=== PATIENT | female | born 1950 | race Caucasian/White ===

== ENCOUNTER 2023-10-05 12:02 | Emergency (ER) | payer MEDICARE, SELFPAY ==
[2023-10-05] VITALS (30 sets, daily range): BP systolic 103–131; BP diastolic 61–97; PULSE 92–107; RESP 20; TEMP 36.3; O2SAT 92–100
--- NOTE | 2023-10-05 13:11 | ED_ITS ---
HPI - General Adult General Date Seen: 10/05/23 Chief complaint: Dizziness/Vertigo Stated complaint: shortness of breath,lightheaded Time Seen by Provider: 10/05/23 12:41 Source: patient Mode of arrival: ambulatory Limitations: no limitations History of Present Illness HPI narrative: Patient is a 72-year-old female presenting to the emergency department for shortness of breath and she has not see dizziness. She states for the past month she has been having worsening shortness of breath. She has also noticed that after walking for a of short amount of time she will start feeling dizzy. She has not have any dizziness or lightheadedness right now. She is also concerned because she has lost 70 lb over the last year unintentionally. She has no she had not had much of an appetite. She has been on Ozempic for 3 months but states the decreased appetite and weight loss has started before that. She is on it for her diabetes. She denies chest pain, fevers, chills, abdominal pain, diarrhea, constipation, weakness, numbness. She was previously on hypertensive medication but was taken off it last week. No other concerns noted at this time Related Data Home Medications Medication Instructions Recorded Confirmed metformin 500 mg tablet 1,000 mg PO BID 10/05/23 10/05/23 metoprolol succinate 25 mg 25 mg PO DAILY 10/05/23 10/05/23 tablet,extended release 24 hr semaglutide 0.25 mg or 0.5 mg (2 mg subcut 10/05/23 mg/3 mL) subcutaneous pen injector (Ozempic) Allergies Allergy/AdvReac Type Severity Reaction Status Date / Time bee venom protein (honey bee) Allergy Unknown Verified 10/05/23 12:34 Sulfa (Sulfonamide Allergy Unknown Verified 10/05/23 12:34 Antibiotics) Review of Systems Status of ROS: Reports: 10 or more systems reviewed and unremarkable except as noted in History and below PFSH PFSH Social History Smoking Status: Never smoker Do you use any of these nicotine containing products: None How often do you have a drink containing alcohol: never How often do you have six or more drinks on one occasion: Never AUDIT-C Alcohol total score: 0 Non-prescribed substance use: denies use Exam Narrative: Exam Narrative: Const: Well-nourished, Well-developed, in mild distress Eyes: PERRL, no conjunctival injection, and symmetrical lids HENT: Atraumatic external nose and ears. Moist mucous membranes. Neck: Symmetric, trachea midline, No thyromegaly. CVS: RRR, No murmurs or gallops. Peripheral pulses 2+ and equal in all extremities RESP: Unlabored respiratory effort. Clear to auscultation bilaterally. GI: Nontender/Nondistended, No rebound or guarding. MSK:Extremities w/o deformity, Normal Active ROM Skin: Warm, Dry. No rashes or lesions. Neuro: Normal Muscle tone, No focal neurological deficits. Psych: Awake, Alert, & Oriented x3. Appropriate mood and affect. Const: Vital Signs, click to edit/add: Vital Signs - 24 hr 10/05/23 16:00 10/05/23 16:02 10/05/23 16:15 Pulse Rate 94 95 95 Blood Pressure 124/72 Pulse Oximetry 98 95 98 10/05/23 16:30 10/05/23 16:32 10/05/23 16:45 Pulse Rate 97 97 94 Blood Pressure 127/73 Pulse Oximetry 96 94 100 Course Vital Signs Vital signs: Initial Vital Signs Temperature 97.4 F L 10/05/23 12:29 Temperature Source Temporal Artery Scan 10/05/23 12:29 Pulse Rate 104 H 10/05/23 12:29 Respiratory Rate 10/05/23 12:29 Blood Pressure 114/80 10/05/23 12:29 Blood Pressure Mean 91 10/05/23 12:29 Blood Pressure Position Sitting 10/05/23 12:29 Pulse Oximetry 98 10/05/23 12:29 Oxygen Delivery Method Room Air 10/05/23 12:29 Vital Signs Temperature 97.4 F L 10/05/23 12:29 Pulse Rate 104 H 10/05/23 12:29 Respiratory Rate 20 10/05/23 12:29 Blood Pressure 114/80 10/05/23 12:29 Pulse Oximetry 98 10/05/23 12:29 Oxygen Delivery Method Room Air 10/05/23 12:29 Temperature 97.4 F L 10/05/23 12:29 Pulse Rate 94 10/05/23 16:45 Respiratory Rate 20 10/05/23 12:29 Blood Pressure 127/73 02/13/24 16:32 Pulse Oximetry 100 02/13/24 16:45 Oxygen Delivery Method Room Air 10/05/23 12:29 Medications Administered Medications: Discontinued Medications Generic Name Dose Route Start Last Admin Trade Name Lily PRN Reason Stop Dose Admin Lactated Ringer's 1,000 mls @ 1,000 mls/hr 10/05/23 13:10 10/05/23 15:35 Lactated Ringers 1000 Ml IV 10/05/23 14:09 Infused .Q1H ONE Infusion Lactated Ringer's 1,000 mls @ 1,000 mls/hr 10/05/23 16:18 10/05/23 16:28 Lactated Ringers 1000 Ml IV 10/05/23 17:17 1,000 mls/hr .Q1H ONE Administration Medical Decision Making MDM Narrative Medical decision making narrative: Patient is a 72-year-old female presenting to the emergency department for shortness of breath. He has also had blood pressure of 80/60 in triage when she stood up. She has been having issues dizziness and lightheadedness over past month while walking around her house. This is abnormal for her. She is not symptomatic at this time. States she has not been eating or drinking much due to not having much of an appetite. This has been going on for a wound she has lost over 70 lb in the past year. She is on was unpacking night can cause decreased appetite but she has only been on that for 3 months. At this time her condition is concerning for cancer. With the shortness of breath and low blood pressure and also concern for pulmonary embolism. At this time we will able limited amount of time in the day that we can order CT scan so or PE study of the chest due for D-dimer as a D-dimer might take too long to come back. Well for CT scan IV contrast of the abdomen pelvis due to concern of cancer. Also ordered BMP, troponin, CMP, creatinine, CBC. She is tachycardic so will order preemptive septic workup that includes blood cultures and lactate. Lactate came back at 4.0. She was given a L of fluids and after that her blood pressure improved her heart rate also improved. She has been able to walk around the department without symptoms. Cbc and CMP showed no acute concerning abnormalities. Troponin within normal limits. EKG shows no concerning findings. Prelim reads of the CTA chest shows chronic fibrotic changes but no acute findings. No signs of PE. Preliminary read of the abdominal CT shows a distended gallbladder to correlate with LFTs. LFTs are within normal limits. No other acute finding seen. Post sec blood pressures were done and were well. She is initially had a lactate of 4. There is no obvious signs of infections so repeated this after L of fluids and is down to 2.3. This seems most likely secondary to dehydration as her symptoms have resolved in her vital signs have improved after a L of fluid. More fluid was given. She is otherwise doing well and I believe she is safe for discharge home. She is agreeable to this plan. She has an appointment the primary care provider on Wednesday. I told her to speak to him about her Ozempic as it may be causing her worsening in her decreased appetite and fluid intake. She states she understands. Final reads returned the next day consistent with preliminary reads. Further interventions not necessary at this time. I did speak to the patient about the results. Lab Data Labs: Lab Results 10/05/23 10/05/23 10/05/23 Range/Units 12:57 13:14 15:55 WBC 9.81 (4.50-11.00) K/uL RBC 3.29 L (4.00-5.20) m/uL Hgb 10.5 L (12.0-16.0) gm/dL Hct 33.2 (33.0-51.0) % MCV 101 H (80-100) fL MCH 32 (26-34) pg MCHC 32 (32-36) gm/dL RDW Coeff of Kain 13.1 (11.5-15.5) % Plt Count 486 H (140-440) K/uL Neut % (Auto) 53.3 (42.0-72.0) % Lymph % (Auto) 38.6 (20-44) % [place] % (Auto) 5.5 (0.0-11.0) % Eos % (Auto) 2.0 (0.0-7.0) % Baso % (Auto) 0.5 (0.0-3.0) % Neut # (Auto) 5.22 (1.7-7.0) K/uL Lymph # (Auto) 3.79 H (0.90-2.90) K/uL [place] # (Auto) 0.50 (0.00-0.90) K/UL Eos # (Auto) 0.20 (0.00-0.50) K/uL Baso # (Auto) 0.05 (0.00-0.30) K/uL Abs Immat Gran (auto) 0.01 (0.00-0.30) K/uL Imm/Tot Granulo (auto) 0.1 % Sodium 137 (135-149) mmol/L Potassium 3.9 (3.6-5.1) mmol/L Chloride 102 (96-114) mmol/L Carbon Dioxide 23 (20-32) mmol/L Anion Gap 12 (7-15) mEq/L BUN 22 (7-30) mg/dL Creatinine 0.7 (0.5-1.5) mg/dL Estimated GFR 92 ml/min Glucose 84 (60-115) mg/dL Lactate 4.0 H 2.3 H (0.5-1.9) mmol/L Calcium 9.2 (8.4-10.6) mg/dL Total Bilirubin 0.6 (0.1-1.5) mg/dL AST 29 (12-35) U/L ALT 22 (4-35) U/L Alkaline Phosphatase 52 (40-150) U/L NT-Pro-B Natriuret Pep 83 pg/mL Total Protein 6.7 (6.0-8.3) g/dL Albumin 4.0 (3.3-5.0) g/dL POC Creatinine 0.8 (0.6-1.3) mg/dl POC Troponin I 0.00 L (0.01-0.04) ng/ml Imaging Data CTA chest: Radiologist's impression: 1. No pulmonary embolus. No CT evidence of right heart strain. 2. No acute intrathoracic pathology. No suspicious pulmonary masses identified 3. Coronary arterial calcifications. Correlation with ASCVD evaluation is advised. Please note that all CT scans at this facility use dose modulation, iterative reconstruction, and/or weight-based dosing when appropriate to reduce radiation dose to as low as reasonably achievable. Dictated by Lazarus Gill MD @ 10/05/2023 10:55:[address] scan abdomen and pelvis: Radiologist's impression: 1. Postsurgical changes of a prior gastric bypass surgery. 2. No acute abdominopelvic pathology. Severe colonic stool burden, correlate for constipation. 3. Nodular thickening of the left adrenal gland, query underlying adrenal hyperplasia versus a small adrenal adenoma. If clinically warranted, consider fu rther evaluation with a dedicated CT/MR adrenal mass protocol. Please note that all CT scans at this facility use dose modulation, iterative reconstruction, and/or weight-based dosing when appropriate to reduce radiation dose to as low as reasonably achievable. Dictated by Lazarus Gill MD @ 10/05/2023 10:32:28 PM ECG Data Attestation: I personally reviewed and interpreted this ECG as follows: Prior ECG tracings: not available for review Interpretation: Normal sinus rhythm with rate of 97 beats per minute, normal intervals, normal axis, no ST or T-wave abnormalities Discharge Plan Discharge Clinical Impression: Dehydration Patient Disposition: Home, Self-Care Condition: Improved Instructions: Dehydration (ED) Additional Instructions: It appears as if you are having dehydration as causing some of your symptoms. I cannot say definitively was causing the shortness of breath I do not find anything acute to my exam. You should speak to her primary care provider at y our appointment this Wednesday about possibly stopping the Ozempic due to it causing a decrease in appetite. Prescriptions: No Action metformin 500 mg tablet 1,000 mg PO BID metoprolol succinate 25 mg tablet extended release 24 hr 25 mg PO DAILY Ozempic 0.25 mg or 0.5 mg (2 mg/3 mL) pen injector subcut Follow Up/Referrals: Provider,Not a Local [Primary Care Provider] - Stand Alone Forms: [employer] Info Instructions
[2023-10-05 13:26] LABS: Basophils Absolute Auto 0.05 K/uL (0.00-0.30); Basophils Percent Auto 0.5 % (0.0-3.0); Hematocrit 33.2 % (33.0-51.0); Hemoglobin* 10.5 gm/dL (12.0-16.0); Immature Granulocytes Abs Auto 0.01 K/uL (0.00-0.30); Immature Granulocytes Pct Auto 0.1 %; Lymphocytes Absolute Auto 3.79 K/uL (0.90-2.90); Lymphocytes Percent Auto 38.6 % (20-44); Mean Corpuscular HGB Conc 32 gm/dL (32-36); Mean Corpuscular Hemoglobin 32 pg (26-34); Mean Corpuscular Volume 101 fL (80-100); Monocytes Percent Auto 5.5 % (0.0-11.0); Neutrophils Absolute Auto 5.22 K/uL (1.7-7.0); Neutrophils Percent Auto 53.3 % (42.0-72.0); Platelet Count* 486 K/uL (140-440); RDW Coefficient of Variation % 13.1 % (11.5-15.5); Red Blood Count 3.29 m/uL (4.00-5.20); White Blood Count* 9.81 K/uL (4.50-11.00)
[2023-10-05 13:30] LABS: Slide Review Reflex No
--- OUTSIDE RECORDS SUMMARY | 2023-10-05 13:32 | XMS_ITS | Encounter Summary ---
Author Name Unknown Organization [facility] Address [address] [place] [address] Care Team Providers Care Associate Merchandiser Name Role Phone Shima Higuera Primary Care Provider [phone] Reason for Visit * Reason Comments RESULTS, TEST Encounter Details Date Type Department Care Team Description 09/30/2023 [facility]phone [facility] [address] [place], [place] [id number] [facility] [address] [place] [address] RESULTS, TEST Social History Tobacco Use Types Packs/Day Years Used Date Smoking Tobacco: Never Passive Smoke Exposure: Never Smokeless Tobacco: Never Alcohol Use Standard Drinks/Week Comments No 0 (1 standard drink = 0.6 oz pur e alcohol) PHQ-2 Answer Date Recorded PHQ-2 Score 0 09/01/2023 Sex and Gender Information Value Date Recorded Sex Assigned at Not on file Gender Identity Not on file Sexual Orientation Not on file documented as of this encounter Nursing Notes * Sarah Rhodes LPN - 10/01/2023 10:41 AM CST Spoke to pt, relayed provider result message, pt has no further questions, closing encounter. ICAL APPLICATIONS MANAGER * Tami Madrid - 09/30/2023 4:45 PM CST Test Results What test are you calling about? 09/30/2023 Primary Casket Upholsterer: Shima Higuera, DO Who ordered the test? Yulissa Park When and where was the test done? [facility] 09/30/2023 Additional comments (related to the above concern): Pt said she missed a call earlier If a prescription is needed, patient would like it filled at the pharmacy listed in Medication Management. Is it okay to leave a detailed message on your voicemail? Yes Is there anything else I can help you with today? ICAL APPLICATIONS MANAGER documented in this encounter Plan of Treatment Upcoming Encounters Date Type Department Care Team Description 10/08/2023 9:40 AM CLINICAL APPLICATIONS MANAGER [facility] [address] [place], [place] [phone] Hemant Fallon MBChB [address] [place], [place] [id number] 03/15/2024 10:45 AM CDT Appointment [facility] [address] [place], [place] [phone] Yumiko yHatt MD [address] [place], [place] [address] documented as of this encounter Visit Diagnoses Not on filedocumented in this encounter Care Teams Associate Merchandiser Relationship Specialty Start Date End Date Shima Higuera DO [address] [place], [place] [id number] PCP - General Family Practice 01/31/18 documented as of this encounter
--- OUTSIDE RECORDS SUMMARY | 2023-10-05 13:32 | XMS_ITS | Clinical Summary ---
Author Name Unknown Organization [facility] Address [address] [address] Care Team Providers Care Staging Technician Name Role Phone Shima Higuera Padmini DEAN Primary Care Provider [phone] Source Comments You are receiving this document as you are listed as the primary care provider,follow-up provider, or the patient has been referred to you for consultation.This is in compliance with the Medicare and[facility] EHR Incentive Program,which states Providers who transition their patient to another setting of careor provider of care or refers their patient to another provider of care shouldprovide summary care record for each transition of care or referral. Génie NumériqueUnm Carrie Ting[facility] HospitalHangzhou [employer] Allergies Active Allergy Reactions Criticality Noted Date Comments Bee Venom Rash 09/18/2015 Benzoin Rash 07/03/2003 Oxycodone Confusion 09/18/2015 Sulfa Antibiotics Rash 10/26/2002 Wound Dressing Adhesive Dermatitis,Rash Low 014 Steri-strips have caused a rash. Medications Medication Sig Dispensed Refills Start Date End Date Status Multiple Vitamins-Minerals (MULTIVITAMIN OR) Take 1 tablet by mouth daily (every 24 hours). 0 0 Active cholecalciferol (VITAMIN D3) 1000 UNITS tabletIndications: S/P gastric bypass Take 1 Tablet (1,000 Units) by mouth daily. 0 1 Active SUMAtriptan (IMITREX) 100 MG tabletIndications: CHANEL ARAIZA Jun 14, 2014 10:42 AM pt took two tabs this am Take 1 Tablet (100 mg) by mouth as needed for Migraine (Take 100 mg by mouth as needed for Migraine.). Indications: CHANEL ARAIZA [facility] Jun 14, 2014 10:42 AM pt took two tabs this am 0 4 Active loratadine (CLARITIN) 10 MG tablet Take 1 Tablet (10 mg) by mouth daily. 0 3 Active acetaminophen (TYLENOL ARTHRITIS) 650 MG controlled release tablet As needed 1 tab every 4-6 hours, not more than 4000 mg/d. 0 7 Active EPINEPHrine (EPIPEN) 0.3 MG/0.3ML injectionIndicatio ns:Bee allergy status Inject 0.3 mL intramuscularly as needed (Inject 1 Dose into the muscle as needed.). 1 Each 1 9 Active fluticasone (FLONASE) 50 MCG/ACT nasal solutionIndication s:Allergic rhinitis, unspecified seasonality, unspecified trigger PLACE 1-2 SPRAYS INTO BOTH NOSTRILS DAILY. 48 g 3 9 Active cyanocobalamin 500 MCG tablet Take by mouth. 0 Active Blood Glucose Monitoring Suppl (BLOOD GLUCOSE METER KIT)Indications:Ty pe 2 diabetes mellitus without complication, without long-term current use of insulin (HRC) Use as directed. 1 Kit 0 2 Active lancetsIndications :Type 2 diabetes mellitus without complication, without long-term current use of insulin (HRC) Use 1 Each to test three times a day. 100 Each 11 2 Active blood glucose test stripIndications:T ype 2 diabetes mellitus without complication, without long-term current use of insulin (HRC) Use 1 Each to test three times a day. 300 Strip 3 2 Active nystatin (MYCOSTATIN) 154036 UNIT/GM powderIndications: Intertrigo Apply topically two times a day. Prn rash 60 g 11 2 Active ketoconazole (NIZORAL) 2 % creamIndications:C andidal intertrigo Apply thin layer to rash in skin folds BID prn 60 g 3 3 Active atorvastatin (LIPITOR) 40 MG tabletIndications: Hyperlipidemia, unspecified hyperlipidemia type (HRC) Take 1 Tablet (40 mg) by mouth daily. 90 Tablet 3 3 Active nortriptyline (PAMELOR) 50 MG capsuleIndications :Paresthesia Take 3 Capsules (150 mg) by mouth every evening. 270 Capsule 3 3 05/16/20 24 Active semaglutide (OZEMPIC) 2 MG/3ML injectionIndicatio ns:Type 2 diabetes mellitus without complication, without long-term current use of insulin (HRC),Class 1 obesity with serious comorbidity in adult, unspecified BMI, unspecified obesity type (HRC) Inject 0.5 mg subcutaneously once a week. 3 mL 3 4 Active metFORMIN (GLUCOPHAGE) 500 MG tabletIndications: Type 2 diabetes mellitus without complication, without long-term current use of insulin (HRC) Take 2 Tablets (1,000 mg) by mouth two times a day with meals. Week 3: 500 mg with breakfast and 1000 mg with evening meal, Week 4: 1000 mg with breakfast and evening meal 360 Tablet 3 4 08/31/19 Active Additional Information Patient taking differently:1,000 mg Oral BID WITH MEALS,1000 mg with breakfast and evening meal, Reported on 09/30/2023 metoprolol succinate (TOPROL XL) 25 MG 24 hour release tabletIndications: Essential hypertension (HRC) Take 1 Tablet (25 mg) by mouth daily. 90 Tablet 3 4 Active valsartan/hydrochl orothiazide (DIOVAN-HCT) 80-12.5 MG tabletIndications: Essential hypertension (HRC) Take 1 Tablet by mouth daily. Hold medication for 1 week and recheck blood pressure at the clinic in 1 week 90 Tablet 3 4 Active metoprolol succinate (TOPROL XL) 25 MG 24 hour release tabletIndications: Essential hypertension (HRC) Take 1 Tablet (25 mg) by mouth daily. 90 Tablet 3 4 09/30/19 24 Discontinu ed(*Med change OR same med OR reorder, new dose/direc tions) valsartan/hydrochl orothiazide (DIOVAN-HCT) 80-12.5 MG tabletIndications: Essential hypertension (HRC) Take 1 Tablet by mouth daily. 90 Tablet 3 4 09/30/19 24 Discontinu ed(*Med change OR same med OR reorder, new dose/direc tions) doxycycline (VIBRAMYCIN) 100 MG capsuleIndications :Cough, unspecified type,Lower respiratory infection Take 1 Capsule (100 mg) by mouth two times a day for 7 days. 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, Basal cell carcinoma Nasal dorsum BCC L Dorsal hand SCCIS Migraine, chronic, without aura 09/08/2012 Depressive disorder 06/09/2012 Overview: Depressive disorder, not elsewhere classified Osteoarthritis of multiple joints 04/23/2009 Overview: DJD Multiple Sites Bariatric surgery status 10/02/2003 Overview: LAP GASTRIC BYPASS Essential hypertension 01/27/2003 Overview: Hypertension Hyperlipidemia 01/27/2003 Obesity 01/27/2003 Resolved Problems Problem Noted Date Diagnosed Date Resolved Date Adenopathy 11/14/2018 02/09/2022 Overview: Added automatically from request for surgery [id number] Psychological factors associ ated with another disorder 06/09/2012 02/09/2022 Overview: Psychic factors associated with diseases classified elsewhere 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 07/09/2008 02/09/2022 Overview: LW Modifier: surgery R and L ; Varicose Veins w Pain Encounters Date Type Department Care Team Description 09/30/2023 9:50 AM CAREER REPRESENTATIVE Lab Visit [facility] [address] [place] [address] Lightheadedness; Fatigue, unspecified type; Abnormal weight loss 09/30/2023 9:00 AM CAREER REPRESENTATIVE [facility] [address] [place] [address] Hemant Fallon MBChB Lightheadedness (Primary Dx); Abnormal weight loss; Fatigue, unspecified type; Essential hypertension (HRC); Sinus tachycardia 09/30/2023 [address] [facility] [id number] [place] [address] Hemant Fallon MBChB RESULTS, TEST 09/20/2023 11:30 AM CAREER REPRESENTATIVE Ancillary Procedure [facility] [address] [place] [address] [place] [address] Shima Higuera DO Cough, unspecified type 09/20/2023 11:00 AM CAREER REPRESENTATIVE Office Visit [place] [place] [address] Shima Higuera DO Lower respiratory infection (Primary Dx); Cough, unspecified type 09/01/2023 10:20 AM CAREER REPRESENTATIVE Office Visit [place] [place] [address] Shima Higuera DO Encounter for Medicare annual wellness exam (Primary Dx); Type 2 diabetes mellitus without complication, without long-term current use of insulin (HRC); Essential hypertension (HRC); Mixed hyperlipidemia (HRC); Class 1 obesity with serious comorbidity in adult, unspecified BMI, unspecified obesity type (HRC); Chronic migraine without aura without status migrainosus, not intractable 09/01/[address] [place] [place] [address] Shima Higuera DO Refill (OZEMPIC, 0.25 OR 0.5 MG/DOSE, 2 MG/3ML injection [Pharmacy Med Name: Ozempic (0.25 or 0.5 MG/DOSE) Subcutaneous Solution Pen-injector 2 MG/3ML]) 08/30/2023 10:00 AM CAREER REPRESENTATIVE Lab Visit [facility] [address] [place] [address] [place] [address] Type 2 diabetes mellitus without complication, without long-term current use of insulin (HRC) from Last 3 Months Immunizations Name Administration Dates Next Due Flu Vac (3+ yrs) 05/28/2016, 5,05/17/2014,2012,04/18/2012 Flu Vac Preserv Free (3+yrs) 05/22/2013, 04/18/2012,06/05/2011,2009,04/30/2009,06/11/2008,06/28/2006,1 10/12/2003 HepA-HepB (TWINRIX, 18+ yrs) 04/26/2013,10/04/19 13,09/02/2012 HepB Adult (Engerix-B, 20+ y rs, 3 dose series) 03/23/2013,11/21/2012,08/23/2012 Influenza [id number] 09/02/2009 Influenza IIV3 (Trivalent) F luzone Highdose, 65+ Yrs (37410) 06/13/2019,06/13/2018,05/20/2017 Influenza IIV4 (Quadrivalent ) Fluad, 65+ Yrs 05/17/2023,08/12/2022,06/18/2021,2019 Influenza, Unspecified Formulation 05/23,02/13/2014,05/15/2010,2008,06/08/2008,06/07/2007,06/28/2006,1 10/12/2003,06/15/2001 Moderna Monovalent 12+ 10/09/2021,11/21/2020,11/2020 PCV13 (Prevnar) 02/02/2017 PPSV23 (Pneumovax) 08/02/2018,11/18/2012 Pfizer Monovalent 12+ Purple Top 04/07/2022 TDAP (BOOSTRIX) 01/23/2016 Td 06/06/2008,01/19/2006,09/09/1995 Tdap 01/23/2016,01/19/2014 Zoster (Zostavax) 01/05/2012 Zoster RZV (Shingrix) 06/13/2019,04/18/2019,10/22 Family History Medical History Relation Name Comments Arthritis Father Coronary Artery Disease Father Diabetes, Type II Father Renal Failure Father Arthritis Mother Cataract Mother Arthritis Brother 1 Coronary Artery Disease Brother 1 Diabetes, Type II Brother 1 Coronary Artery Disease Brother 2 Cancer Maternal Uncle Cancer, Skin Maternal Uncle Migraines Other nephew Cancer, Skin Paternal Uncle Arthritis Sister Cataract Sister Diabetes, Type II Sister Cancer, Breast Negative Family History Cancer, Ovary Negative Family History Relation Name Status Comments Father Mother Alive Brother 1 Alive Brother 2 Alive Maternal Uncle Other Paternal Uncle Sister Social History Tobacco Use Types Packs/Day Years Used Date Smoking Tobacco: Never Passive Smoke Exposure: Never Smokeless Tobacco: Never Tobacco Cessation:Counseling Given: Not Answered Alcohol Use Standard Drinks/Week Comments No 0 (1 standard drink = 0.6 oz pur e alcohol) PHQ-2 Answer Date Recorded PHQ-2 Score 0 09/01/2023 Sex and Gender Information Value Date Recorded Sex Assigned at Not on file Gender Identity Not on file Sexual Orientation Not on file Last Filed Vital Signs Vital Sign Reading Time Taken Comments Blood Pressure 85/62 09/30/2023 9:03 AM CAREER REPRESENTATIVE Pulse 136 09/30/2023 9:03 AM CAREER REPRESENTATIVE Temperature 36.5 ??C (97.7 ??F) 09/20/2023 11:[address] Respiratory Rate 11 11/15/2018 11:22 AM CDT Oxygen Saturation 94% 09/20/2023 11:05 AM CAREER REPRESENTATIVE Inhaled Oxygen Concentration - - Weight 74 kg (163 lb 1 oz) 09/30/2023 9:00 AM CS T Height 164.5 cm (5' 4.76) 02/10/2023 10:17 AM C DT Body Mass Index 27.33 02/10/2023 10:17 AM CDT Plan of Treatment Upcoming Encounters Date Type Department Care Team Description 10/08/2023 9:40 AM CAREER REPRESENTATIVE [facility] [address] [place], [place] [address] Hemant Fallon, [facility] [address] [place] [address] 03/15/2024 10:45 AM CDT Appointment [facility] [address] [address], [place] [id number] Yumiko Hyatt MD [address] [place] [address] Health Maintenance Due Date Last Done Comments MTM Targeted 1950 COVID-19 Vaccine ( season) 2023 04/07/2022, 10/09/2021, 11/21/2020, Additional history exists Diabetes: HGBA1C 11/29/2023 08/30/2023, , 02/10/2023, Additional history exists FIT Colon Cancer Screening 03/01/202403/01, 06/23/2021, 04/10/2020 (Completed), Additional history exists Diabetes: Eye Exam 03/09/2024 03/09/2023, 0 03/09/2023 (Completed), 02/11/2022, Additional history exists Mammogram 03/25/2024 03/25/2023, 01/22, 02/03/2021, Additional history exists Diabetes: Foot Exam 05/17/2024 05/17/2023, 02/09/2022 (Completed) Diabetes: Urine Microalbumin 08/30/2024 08/30/2023, 08/11/2022, 01/29/2022 Medicare Annual Wellness Visit 09/01/2024 09/01/2023, 11/13/2022, 10/28/2021, Additional history exists Diabetes: Creatinine 09/30/2024 09/30/2023, 08/30/2023, 02/10/2023, Additional history exists DTaP/Tdap/Td (4 - Tdap) 01/22/2026 01/23/20 16, 01/23/2016, 01/19/2014, Additional history exists Diabetes: Lipid Panel 02/11/2028 02/10/2023 , 08/11/2022, 06/18/2021, Additional history exists HepA Completed 04/26/2013, 09/23, 09/02/2012 HepB Completed 04/26/2013, 08/0 08/2012, 11/21/2012, Additional history exists Dexa Completed 05/25/2018, 04/23, 04/05/2018 Pneumococcal 65+ Yrs Completed 08/02/2018, 02/02/2017, 11/18/2012 Zoster/Shingles Completed 06/13/2019, 03/24, 11/09/2017, Additional history exists Hep C Screening (Preventive Services) Completed 08/08/2019 (Completed) Cholesterol Discontinued 02/10/2023, 07/24, 06/18/2021, Additional history exists Influenza Completed 05/17/2023, 07/24, 06/18/2021, Additional history exists Hib Aged Out No longer eligi ble based on patient's age to complete this topic IPV (Polio) Aged Out No longer eligi ble based on patient's age to complete this topic MCV4 Aged Out No longer eligi ble based on patient's age to complete this topic Medical Devices Implanted Type Area Olive Grower Device Identifier Shelf Expiration Date Model / Serial / Lot Almont Swivelock Dx 3.5x8.5 - [id number] Implanted:Qty: 1 on 11/29/2017 by Benjamin Judge MD at [facility] Left: HAND [employer] 08/22/2022 AR-8978P / 00 / [id number] Almont Swivelock Dx 3.5x8.5 - [id number] Implanted:Qty: 1 on 11/29/2017 by Benjamin Judge MD at [facility] Left: HAND [employer] 08/22/2022 AR-8978P / 00 / [id number] K-Wire Gd .062 - [id number] Implanted:Qty: 1 on 11/29/2017 by Benjamin Judge MD at [facility] Left: HAND [employer] 09/10/2021 [id number] / NA / [id number] Procedures Procedure Name Priority Date/Time Associated Diagnosis Comments PREALBUMIN Routine 09/30/2023 9:49 AM CAREER REPRESENTATIVE Abnormal weight loss COMPREHENSIVE METABOLIC PANEL Routine 09/30/2023 9:49 AM CAREER REPRESENTATIVE Abnormal weight loss TSH, SENSITIVE (WITH REFLEX) Routine 09/30/2023 9:49 AM CAREER REPRESENTATIVE Fatigue, unspecified type COMPLETE BLOOD COUNT-NO DIFF Routine 09/30/2023 9:49 AM CAREER REPRESENTATIVE Lightheadedness ECG 12 LEAD OUTPATIENT Routine 9:35 AM CAREER REPRESENTATIVE Lightheadedness XR CHEST 2 VIEWS Routine 09/20/2023 11:3 5 AM CAREER REPRESENTATIVE Cough, unspecified type ALBUMIN/CREAT RATIO Routine 08/30/2023 1 0:01 AM CAREER REPRESENTATIVE Type 2 diabetes mellitus without complication, without long-term current use of insulin (HRC) CREATININE / GFR Routine 08/30/2023 10:0 1 AM CAREER REPRESENTATIVE Type 2 diabetes mellitus without complication, without long-term current use of insulin (HRC) ELECTROLYTE PANEL Routine 08/30/2023 10: 01 AM CAREER REPRESENTATIVE Type 2 diabetes mellitus without complication, without long-term current use of insulin (HRC) HGB A1C Routine 08/30/2023 10:01 AM CAREER REPRESENTATIVE Type 2 diabetes mellitus without complication, without long-term current use of insulin (HRC) from Last 3 Months Results * (ABNORMAL) Comp Metabolic Panel (09/30/2023 9:49 AM CAREER REPRESENTATIVE) Sodium 137 136 - 145 mmol/L 09/30/2023 3:32 PM [facility] Potassium 3.4(L) 3.5 - 5.1 mmol/L 09/30/2023 3:32 PM [facility] Chloride 99 98 - 109 mmol/L 09/30/2023 3:32 PM [facility] CO2 26 20 - 29 mmol/L 09/30/2023 3:32 PM [facility] Anion Gap 12 7 - 16 mmol/L 09/30/2023 3:32 PM [facility] Calcium 9.7 8.4 - 10.4 mg/dL 09/30/2023 3:32 PM [facility] BUN 31(H) 7 - 26 mg/dL 09/30/2023 3:32 PM [facility] Creatinine 0.88 0.55 - 1.02 mg/dL 09/30/2023 3:32 PM [facility] Alkaline Phosphatase 55 40 - 150 U/L 09/30/2023 3:32 PM [facility] AST (SGOT) 28 10 - 40 U/L 09/30/2023 3:32 PM [facility] ALT (SGPT) 22 <=55 U/L 09/30/2023 3:32 PM [facility] Bilirubin, Total 0.4 0.2 - 1.2 mg/dL 09/30/2023 3:32 PM [facility] Protein, Total 7.2 6.4 - 8.3 g/dL 09/30/2023 3:32 PM [facility] Albumin 3.6 3.5 - 5.0 g/dL 09/30/2023 3:32 PM [facility] Glucose 81 70 - 100 mg/dL 09/30/2023 3:32 PM [facility] Comment:The given reference range is for the fasting state. Non-fasting reference range for glucose is 70 - 180 mg/dL. GFR, Estimated >60 >60 mL/min/1.7 3m2 09/30/2023 3:32 PM [facility] Hours Fasting 0.0 8 - 12 Hours 09/30/2023 3:32 PM [facility] Blood Venipuncture / Unknown 09/30/2023 9:49 AM CAREER REPRESENTATIVE 09/30/2023 9:49 AM CAREER REPRESENTATIVE Hemant Fallon [facility] LAB_1 [facility] [address] [place] [address] * (ABNORMAL) Prealbumin (09/30/2023 9:49 AM CAREER REPRESENTATIVE) Prealbumin 38.5(H) 16.0 - 38.0 mg/dL 09/30/2023 3:44 PM CAREER REPRESENTATIVE [facility] Blood Venipuncture / Unknown 09/30/2023 9:49 AM CAREER REPRESENTATIVE 09/30/2023 9:49 AM CAREER REPRESENTATIVE Hemant Fallon [facility] LAB_1 [facility] [address], [place] [address] * (ABNORMAL) Complete Blood Count-No Diff (09/30/2023 9:49 AM CAREER REPRESENTATIVE) WBC 12.0(H) 3.5 - 10.5 x10(9)/L 09/30/2023 9:51 AM CAREER REPRESENTATIVE [facility] RBC 3.70(L) 3.90 - 5.03 x10(12)/L 09/30/2023 9:51 AM CAREER REPRESENTATIVE [facility] Hemoglobin 12.0 12.0 - 15.5 g/dL 09/30/2023 9:51 AM CAREER REPRESENTATIVE [facility] HCT 37.0 34.9 - 44.5 % 09/30/2023 9:51 AM [facility] MCV 100.0 80.0 - 100.0 fL 09/30/2023 9:51 AM CAREER REPRESENTATIVE [facility] MCH 32.4 27.6 - 33.3 pg 09/30/2023 9:51 AM CAREER REPRESENTATIVE [facility] MCHC 32.4 31.5 - 35.2 g/dL 09/30/2023 9:51 AM [facility] RDW 13.0 11.9 - 15.5 % 09/30/2023 9:51 AM CAREER REPRESENTATIVE [facility] Platelets 785(H) 150 - 450 x10(9)/L 09/30/2023 9:51 AM [facility] Blood Venipuncture / Unknown 09/30/2023 9:49 AM CAREER REPRESENTATIVE 09/30/2023 9:49 AM CAREER REPRESENTATIVE [facility] [address] [place] [address], [facility] * TSH with Free T4 (if TSH Abnormal) (09/30/2023 9:49 AM CAREER REPRESENTATIVE) TSH, Reflex 0.91 0.30 - 4.50 uIU/mL 09/30/2023 2:58 PM CAREER REPRESENTATIVE [facility] Blood Venipuncture / Unknown 09/30/2023 9:49 AM CAREER REPRESENTATIVE 09/30/2023 9:49 AM CAREER REPRESENTATIVE Hemant Fallon [facility] LAB_1 Performing Organization Address City/[facility]/ZIP Co de Phone Number [facility] [address] [phone], [facility] * ECG 12 Lead Outpatient (09/30/2023 9:35 AM CAREER REPRESENTATIVE) Pathologist [facility] Ventricular Rate 110 BPM [facility] Atrial Rate 110 BPM [facility] P-R Interval 182 ms [facility] QRS Duration 94 ms [facility] QT 336 ms [facility] QTc 454 ms [facility] P [place] 68 degrees [facility] R [place] -11 degrees [facility] T [place] 54 degrees [facility] 09/30/2023 9:35 AM CAREER REPRESENTATIVE Narrative [facility] - 09/30/2023 10:00 AM CAREER REPRESENTATIVE Sinus tachycardia Otherwise normal ECG When compared with ECG of 28-OCT-2021 08:28, Left anterior fascicular block is no longer Present Reconfirmed by Rodney Garcia ([id number]) on 09/30/2023 10:01:12 AM Procedure Note Addison Garcia MD - 09/30/2023 Sinus tachycardia Otherwise normal ECG When compared with ECG of 28-OCT-2021 08:28, Left anterior fascicular block is no longer Present Reconfirmed by Rodney Garcia ([id number]) on 09/30/2023 10:01:12 [address] [facility] PN ECG ORDER ZOILA Performing Organization Address City/[facility]/ZIP Co de Phone Number [facility] [address] [place] [address] * XR Chest 2 Views (09/20/2023 11:35 AM CAREER REPRESENTATIVE) Anatomical Region Laterality Modality Chest, Lung Digital Radiogra phy 09/20/2023 11:3 1 AM CAREER REPRESENTATIVE Impressions 09/20/2023 12:42 PM CAREER REPRESENTATIVE COMPARISON: ??10/26/2019 FINDINGS: 2 views obtained. Airspace opacity at the posterior aspect of the right lower lobe, suspicious for infection or aspiration given the patient's history of cough. Mild curvilinear atelectasis/scarring at the left lung base. No pneumothorax or pulmonary edema. No drainable pleural effusion. Heart size normal. Aortic knob calcific atherosclerotic disease. Degenerative changes of the thoracic spine. Osteopenia. No acute fracture. IMPRESSION: 1. New airspace opacity in the posterior aspect of the right lower lobe, suspicious for infection or aspiration given the patient's history of cough. 6- to 8-week follow-up chest x-ray is recommended after completion of treatment for patients at higher risk of underlying malignancy, particularly those > 50 years of age and smokers or former smokers. If not significantly improved on follow-up, CT would be recommended. Narrative Procedure Note Keyshawn Gipson MD - 09/20/2023 IMPRESSION COMPARISON: 10/26/2019 FINDINGS: 2 views obtained. Airspace opacity at the posterior aspect ofthe right lower lobe, suspicious for infection or aspiration given thepatient's history of cough. Mild curvilinear atelectasis/scarring at theleft lung base. No pneumothorax or pulmonary edema. No drainable pleuraleffusion. Heart size normal. Aortic knob calcific atherosclerotic disease.Degenerative changes of the thoracic spine. Osteopenia. No acutefracture. IMPRESSION: 1. New airspace opacity in the posterior aspect of the right lower lobe,suspicious for infection or aspiration given the patient's history ofcough. 6- to 8-week follow-up chest x-ray is recommended after completionof treatment for patients at higher risk of underlying malignancy,particularly those > 50 years of age and smokers or former smokers. If notsignificantly improved on follow-up, CT would be recommended. Shima HERNANDEZ * Creatinine / GFR (08/30/2023 10:01 AM CAREER REPRESENTATIVE) Creatinine 0.71 0.55 - 1.02 mg/dL 08/30/2023 3:10 PM [facility] GFR, Estimated >60 >60 mL/min/1.7 3m2 08/30/2023 3:10 PM [facility] Blood Venipuncture / Unknown 08/30/2023 10:01 AM [facility] 08/30/2023 10:01 AM [facility] Shima Higuera DO LAB_1 Performing Organization Address [facility]/ZIP Co de Phone Number [facility] [address] [place] [address], [facility] [phone] * Electrolyte Panel (08/30/2023 10:01 AM [facility]) Sodium 142 136 - 145 mmol/L 08/30/2023 3:10 PM [facility] Potassium 4.1 3.5 - 5.1 mmol/L 08/30/2023 3:10 PM [facility] Chloride 104 98 - 109 mmol/L 08/30/2023 3:10 PM [facility] CO2 26 20 - 29 mmol/L 08/30/2023 3:10 PM [facility] Anion Gap 12 7 - 16 mmol/L 08/30/2023 3:10 PM [facility] Blood Venipuncture / Unknown 08/30/2023 10:01 AM [facility] 08/30/2023 10:01 AM [facility] Shima Higuera DO LAB_1 Performing Organization Address [facility] Co de Phone Number [facility] [address] [place] [address], [facility] [phone] * Albumin/Creatinine Ratio,Random Urine (08/30/2023 10:01 AM [facility]) Albumin/Creati nine Ratio, Urine, Random 24 <30 mg/g 08/30/2023 3:02 PM [facility] Albumin, Urine, Random 36.4 mg/L 08/30/2023 3:02 PM [facility] Creatinine, Urine, Random 150 >20 mg/dL mg/dL 08/30/2023 3:02 PM [facility] Urine Non-blood Collection / Unknown 08/30/2023 10:01 AM CAREER REPRESENTATIVE 08/30/2023 10:01 AM CAREER REPRESENTATIVE Shima Higuera DO LAB_1 Performing Organization Address [facility] Co de Phone Number [facility] [address] [place] [address], [facility] [phone] * (ABNORMAL) Hgb A1c (08/30/2023 10:01 AM CAREER REPRESENTATIVE) Hemoglobin A1C 6.0(H) <=5.6 % 08/30/2023 6:05 PM [facility] Estimated Average Glucose (Calc) 126 < 117 mg/dL 08/30/2023 6:05 PM [facility] Comment:Estimated average gl ucose (eAG) converts A1c into glucose units (mg/dL) and estimates average glucose over the past approximately 3 months. The eAG reference interval (<117 mg/dL) corresponds to an A1c of <5.7%. Blood Venipuncture / Unknown 08/30/2023 10:01 AM CAREER REPRESENTATIVE 08/30/2023 10:01 AM CAREER REPRESENTATIVE Narrative [facility] - 08/30/2023 6:05 PM CAREER REPRESENTATIVE For patients not previously diagnosed with diabetes: 5.7-6.4%: Increased risk for diabetes 6.5% and greater: Diagnostic for diabetes For patients diagnosed with diabetes: <8.0%: Goal of therapy for ages 18-75 Clinicians may recommend a higher or lower goal for specific individuals. hSima Higuera DO LAB_1 Performing Organization Address [facility] Co de Phone Number [facility] [address] [address], [facility] [phone] from Last 3 Months Advance Directives Latest Code Status on File Code Status Date Activated Date Inactivated Comments Full Code 11/15/2018 11:32 AM 11/15/2018 3:07 PM Full code in effect for 30 days Code Status History Code Status Date Activated Date Inactivated Comments Full Code 11/29/2017 1:01 PM 11/29/2017 4:28 PM Full Code 02/04/2016 12:46 PM 02/04/2016 6:44 PM Care Teams Staging Technician Relationship Specialty Start Date End Date Shima Higuera DO [address] [place] [address] PCP - General Family Practice 01/31/18
--- OUTSIDE RECORDS SUMMARY | 2023-10-05 13:32 | XMS_ITS | Encounter Summary ---
Author Name Unknown Organization [facility] Address [address] [place] [address] Care Team Providers Care Monotype Caster Name Role Phone Shima Higuera Padmini DEAN Primary Care Provider [phone] Encounter Details Date Type Department Care Team Description 09/30/2023 9:50 AM CLOSING SPECIALIST Lab Visit [facility] [address] [place], [place] [address] Lightheadedness; Fatigue, unspecified type; Abnormal weight loss Social History Tobacco Use Types Packs/Day Years [...] on file documented as of this encounter Plan of Treatment Upcoming Encounters Date Type Department Care Team Description 10/08/2023 9:40 AM CLOSING SPECIALIST Appointment [facility] [address] [place], [place] [address] Hemant Fallon, [facility] [address] [place], [place] [address] 03/15/2024 10:45 AM CDT Appointment [facility] [address] [place], [place] [id number] Yumiko Hyatt MD [address] [place] [address] documented as of this encounter Procedures Procedure Name Priority Date/Time Associated Diagnosis Comments COMPREHENSIVE METABOLIC PANEL Routine 09/30/2023 9:49 AM CLOSING SPECIALIST Abnormal weight loss PREALBUMIN Routine 09/30/2023 9:49 AM CLOSING SPECIALIST Abnormal weight loss COMPLETE BLOOD COUNT-NO DIFF Routine 09/30/2023 9:49 AM CLOSING SPECIALIST Lightheadedness TSH, SENSITIVE (WITH REFLEX) Routine 09/30/2023 9:49 AM CLOSING SPECIALIST Fatigue, unspecified type documented in this encounter Results * (ABNORMAL) Prealbumin (09/30/2023 9:49 AM CLOSING SPECIALIST) Prealbumin 38.5(H) 16.0 - 38.0 mg/dL 09/30/2023 3:44 PM CLOSING SPECIALIST [facility] Blood Venipuncture / Unknown 09/30/2023 9:49 AM CLOSING SPECIALIST 09/30/2023 9:49 AM CLOSING SPECIALIST Hemant [facility]te[facility]ly[facility] LAB_1 [facility] [address] [place], [place] [address] [place] [address] * (ABNORMAL) Comp Metabolic Panel (09/30/2023 9:49 AM CLOSING SPECIALIST) Sodium 137 136 - 145 mmol/L 09/30/2023 3:[address] [facility] Potassium 3.4(L) 3.5 - 5.1 mmol/L 09/30/2023 3:[address] [facility] Chloride 99 98 - 109 mmol/L 09/30/2023 3:[address] [facility] CO2 26 20 - 29 mmol/L 09/30/2023 3:[address] [facility] Anion Gap 12 7 - 16 mmol/L 09/30/2023 3:[address] [facility] Calcium 9.7 8.4 - 10.4 mg/dL 09/30/2023 3:[address] [facility] BUN 31(H) 7 - 26 mg/dL 09/30/2023 3:[address] [facility] Creatinine 0.88 0.55 - 1.02 mg/dL 09/30/2023 3:[address] [facility] Alkaline Phosphatase 55 40 - 150 U/L 09/30/2023 3:[address] [facility] AST (SGOT) 28 10 - 40 U/L 09/30/2023 3:[address] [facility] ALT (SGPT) 22 <=55 U/L 09/30/2023 3:[address] [facility] Bilirubin, Total 0.4 0.2 - 1.2 mg/dL 09/30/2023 3:[address] [facility] Protein, Total 7.2 6.4 - 8.3 g/dL 09/30/2023 3:[address] [facility] Albumin 3.6 3.5 - 5.0 g/dL 09/30/2023 3:[address] [facility] Glucose 81 70 - 100 mg/dL 09/30/2023 3:[address] [facility] Comment:The given reference range is for the fasting state. Non-fasting reference range for glucose is 70 - 180 mg/dL. GFR, Estimated >60 >60 mL/min/1.7 3m2 09/30/2023 3:[address] [facility] Hours Fasting 0.0 8 - 12 Hours 09/30/2023 3:[address] [facility] Blood Venipuncture / Unknown 09/30/2023 9:49 AM CLOSING SPECIALIST 09/30/2023 9:49 AM [facility] Hemant Fallon [facility] LAB_1 [facility] [address] [place] [address] * TSH with Free T4 (if TSH Abnormal) (09/30/2023 9:49 AM CLOSING SPECIALIST) TSH, Reflex 0.91 0.30 - 4.50 uIU/mL 09/30/2023 2:58 PM CLOSING SPECIALIST [facility] Blood Venipuncture / Unknown 09/30/2023 9:49 AM CLOSING SPECIALIST 09/30/2023 9:49 AM CLOSING SPECIALIST Hemant Fallon [facility] LAB_1 [facility] [address] * (ABNORMAL) Complete Blood Count-No Diff (09/30/2023 9:49 AM CLOSING SPECIALIST) [facility] WBC 12.0(H) 3.5 - 10.5 x10(9)/L 09/30/2023 9:51 AM CLOSING SPECIALIST [facility] RBC 3.70(L) 3.90 - 5.03 x10(12)/L 09/30/2023 9:51 AM [facility] Hemoglobin 12.0 12.0 - 15.5 g/dL 09/30/2023 9:51 AM [facility] HCT 37.0 34.9 - 44.5 % 09/30/2023 9:51 AM [facility] MCV 100.0 80.0 - 100.0 fL 09/30/2023 9:51 AM [facility] MCH 32.4 27.6 - 33.3 pg 09/30/2023 9:51 AM [facility] MCHC 32.4 31.5 - 35.2 g/dL 09/30/2023 9:51 AM [facility] RDW 13.0 11.9 - 15.5 % 09/30/2023 9:51 AM [facility] Platelets 785(H) 150 - 450 x10(9)/L 09/30/2023 9:51 AM [facility] Blood Venipuncture / Unknown 09/30/2023 9:49 AM CLOSING SPECIALIST 09/30/2023 9:49 AM CLOSING SPECIALIST Hemant Fallon [facility] LAB_1 [facility] [address] [place] [address], [facility] documented in this encounter Visit Diagnoses Diagnosis Lightheadedness Dizziness and giddiness Fatigue, unspecified type Abnormal weight loss Loss of weight documented in this encounter Care Teams Monotype Caster Relationship Specialty Start Date End Date Shima Higuera DO [address] [place], [place] [address] PCP - General Family Practice 01/31/18 documented as of this encounter
--- OUTSIDE RECORDS SUMMARY | 2023-10-05 13:33 | XMS_ITS | Encounter Summary ---
Author Name Unknown Organization [facility] Address [address] [place] [address] Care Team Providers Care Case Therapist Name Role Phone Shima Higuera DO Primary Care Provider [phone] Reason for Visit * Reason Comments TINGLING Encounter Details Date Type Department Care Team Description 03/18/[facility]23 [facility] [address] [place], [place] [phone] Shima Higuera DO [address] [place] [address] TINGLING Social History Tobacco Use Types Packs/Day Years Used Date Smoking Tobacco: Never Smokeless Tobacco: Never Alcohol Use Standard Drinks/Week Comments No 0 (1 standard drink = 0.6 oz pur e alcohol) PHQ-2 Answer Date Recorded PHQ-2 Score 0 11/13/2022 Sex and Gender Information Value Date Recorded Sex Assigned at Not on file Gender Identity Not on file Sexual Orientation Not on file documented as of this encounter Nursing Notes * Raquel Grewal RN - 03/18/2023 3:21 PM CDT Spoke to patient.. Bilateral tingling feet from toes to 4-5 inches of foot. Starting 2 months. Intermittent sx lasting up to an hour. Will awaken her from sleep but occurs during day as well. Tingling moderate in nature. Did not discuss with PCP at 02/10/23 diabetic check. Was hoping sx would go away. Denies weakness, dizziness, chest pain, pain. Advised evaluation within 3 days and reasons to call back. Verbalized agreement.Problem list reviewed as related to this call. Future Appointments Date Time Provider Department Center 03/22/2023 2:30 PM Luisa Dixon, GROUTER HELPER, WELDING SYSTEMS AND EQUIPMENT REPAIRER PRLK FM PN PRLK 03/25/2023 10:20 AM MOBILE MAMMO TRUCK 2 PRLK MAMMO PN PRLK 05/13/2023 10:00 AM LAB, PRLK LAB PRLK LAB PN PRLK 05/17/2023 10:20 AM Shima Higuera, DO PRLK FM PN PRLK 03/15/2024 10:45 AM Yumiko Hyatt MD [facility] KIERRA PN [facility] Reason for Disposition Numbness or tingling on both sides of body and is a new symptom lasting > 24 hours Protocols used: Neurologic [id number] * Yue Mcbride - 03/18/2023 2:05 PM CDT Symptoms Describe your symptoms (if pain, include location): Tingling of feet When did they start? 2 months Additional comments (related to the above concern): Please advise if she needs to go to specialist. If a prescription is needed, patient would like it filled at the pharmacy listed in Medication Management. Is it okay to leave a detailed message on your voicemail? Yes Is there anything else I can help you with today? No. {For routine symptoms - Please route to - head up operator Pool (only transfer if caller insists) documented in this encounter Plan of Treatment Upcoming Encounters Date Type Department Care Team Description 10/08/2023 9:40 AM FLEET MAINTENANCE FOREMAN [facility] [address] [place] [address] Hemant Fallon, [facility] [address] [address] 03/15/2024 10:45 AM CDT Appointment [facility] [address] [place] [address] Yumiko Hyatt MD [address] [place], [place] [id number] documented as of this encounter Visit Diagnoses Not on filedocumented in this encounter Care Teams Case Therapist Relationship Specialty Start Date End Date Shima Higuera DO [address] [place], [place] [address] PCP - General Family Practice 01/31/18 documented as of this encounter
--- OUTSIDE RECORDS SUMMARY | 2023-10-05 13:33 | XMS_ITS | Encounter Summary ---
Author Name Unknown Organization [facility] Address [address], [place] [address] Care Team Providers Care Accounting Technician Name Role Phone Shima Higuera DO Primary Care Provider [phone] Reason for Visit * Reason Comments FOLLOW-UP,LAB Encounter Details Date Type Department Care Team Description 05/17/2023 10:20 AM CDT [facility] [address] [place], [place] [phone] Shima Higuera DO [address] [place], [place] [address] Hyperlipidemia, unspecified hyperlipidemia type (HRC); Type 2 diabetes mellitus without complication, without long-term current use of insulin (HRC); Paresthesia Social History Tobacco Use Types Packs/Day Years [...] on file documented as of this encounter Last Filed Vital Signs Vital Sign Reading Time Taken Comments Blood Pressure 126/67 05/17/2023 10:16 AM CDT Pulse 103 05/17/2023 10:16 AM CDT Temperature - - Respiratory Rate - - Oxygen Saturation - - Inhaled Oxygen Concentration - - Weight 87.5 kg (193 lb) 05/17/2023 10:16 AM CDT Height - - Body Mass Index 32.35 02/10/2023 10:17 AM CDT documented in this encounter Progress Notes * Shima Higuera, - 05/17/2023 10:20 AM CDT Lidia Akhtar is here today for diabetes check. Last A1C- Results for orders placed or performed in visit on 05/10/23 Hgb A1C TEST NAME: YOUR RESULT: NORMAL-RANGE Hemoglobin A1C 6.1 (H) <=5.6 % Estimated Average Glucose (Calc) 128 < 117 mg/dL Heart Health: As recommended by the [employer], we use information about your health to estimate your risk for a heart attack or stroke. Your risk in the next 10 years is 23%. The information we used to estimate your risk is: Your age 72, sex, blood pressure of 126/67 mm Hg, use of blood pressure lowering medication, total cholesterol of 135 mg/dl, HDL (good cholesterol) of 41 mg/dl, diagnosis of diabetes, no tobacco or nicotine use. You can improve your heart health by doing the following in order of priority: For information on self-directed lifestyle change for weight management, go to www.myhealthwizard.org Current diabetic medications include: oral agents/insulin: metformin and ozempic Eye exam current (within one year): yes Weight trend:down Prior visit with licensed tax consultant/Care coordination: yes Current diet: eating well Current exercise: walking Lipids- Currently on a statin HTN- stable at home. . Reviewed patient Past medical history, medications, allergies and Social/Family history. Updated inEpic. Pertinent ROS as above. Objective: BP 126/67 (BP Location: Right Arm, BP Cuff Size: Regular) Pulse (!) 103 Wt 193 lb (87.5 kg) BMI 32.35 kg/m?? Physical Exam Nursing note and vitals reviewed. Constitutional: Oriented to person, place, and time. Appears well-developed and well-nourished. No distress. HENT: Head: Normocephalic and atraumatic. Eyes: EOM are normal. Pupils are equal, round, and reactive to light. Cardiovascular: Normal rate, regular rhythm, normal heart sounds and intact distal pulses. Pulmonary/Chest: Effort normal and breath sounds normal. Neurological: Alert and oriented to person, place, and time. Skin: Skin is warm and dry. Not diaphoretic. Psychiatric: Normal mood and affect. Behavior is normal. Diabetic foot exam: warm, normal pedal pulses, no deformities, no open lesions, normal cap refill, toenails , callouses , normal monofilament testing Assessment/Plan: 1. Hyperlipidemia, unspecified hyperlipidemia type ([facility]) Refill was given. - atorvastatin (LIPITOR) 40 MG tablet; Take 1 Tablet (40 mg) by mouth daily. Dispense: 90 Tablet; Refill: 3 2. Type 2 diabetes mellitus without complication, without long-term current use of insulin ([facility]) A1C is trending down. Continue to increase dose of ozempic. Would like follow up in 3 months. - Diabetic Foot Check (Ep101) - Albumin/Creatinine Ratio,Random Urine; Future - semaglutide (OZEMPIC) 2 MG/3ML injection; Inject 0.5 mg subcutaneously once a week. Dispense: 3 mL; Refill: 2 3. Paresthesia Increase dose to 150mg. - nortriptyline (PAMELOR) 50 MG capsule; Take 3 Capsules (150 mg) by mouth every evening. Dispense:270 Capsule; Refill: 3 Shima Higuera DO documented in this encounter Plan of Treatment Upcoming Encounters Date Type Department Care Team Description 10/08/2023 9:40 AM PALLET ASSEMBLER Appointment [facility] [address] [place], [place] [address] Hemant Fallon, [facility] [address] [place], [place] [address] 03/15/2024 10:45 AM CDT Appointment [facility] [address] [place], [place] [phone] Yumiko Hyatt MD [address] [place], [place] [phone] documented as of this encounter Results * Albumin/Creatinine Ratio,Random Urine (08/30/2023 10:01 AM [facility]) Albumin/Creati nine Ratio, Urine, Random 24 <30 mg/g 08/30/2023 3:02 PM [facility] Albumin, Urine, Random 36.4 mg/L 08/30/2023 3:02 PM [facility] Creatinine, Urine, Random 150 >20 mg/dL mg/dL 08/30/2023 3:02 PM [facility] Urine Non-blood Collection / Unknown 08/30/2023 10:01 AM PALLET ASSEMBLER 08/30/2023 10:01 AM [facility] Shima Higuera DO LAB_1 [facility] [address] [place] [address], [facility] [phone] documented in this encounter Visit Diagnoses Diagnosis Hyperlipidemia, unspecified hyperlipidemia type (HRC) Type 2 diabetes mellitus without complication, without long-term current use of insulin (HRC) Paresthesia Disturbance of skin sensation documented in this encounter Care Teams Accounting Technician Relationship Specialty Start Date End Date Shima Higuera DO [address] [place] [address] PCP - General Family Practice 01/31/18 documented as of this encounter
--- OUTSIDE RECORDS SUMMARY | 2023-10-05 13:33 | XMS_ITS | Encounter Summary ---
Author Name Unknown Organization [facility] Address [address], [place] [address] Care Team Providers Care Vulcanizer Rubber Plate Name Role Phone Jeffery Wei DO Primary Care Provider [phone] Reason for Visit * Reason Comments Refill OZEMPIC, 0.25 OR 0.5 MG/DOSE, 2 MG/3ML injection [Pharmacy Med Name: Ozempic (0.25 or 0.5 MG/DOSE) Subcutaneous Solution Pen-injector 2 MG/3ML] Encounter Details Date Type Department Care Team Description [facility] [address] [place], [place] [address] Jeffery Wei, DO [address] [place], [place] [address] Refill (OZEMPIC, 0.25 OR 0.5 MG/DOSE, 2 MG/3ML injection [Pharmacy Med Name: Ozempic (0.25 or 0.5 MG/DOSE) Subcutaneous Solution Pen-injector 2 MG/3ML]) Social History Tobacco Use Types Packs/Day Years [...] as of this encounter Nursing Notes * Interface, Out Surescripts Prov Query - 09/01/2023 11:05 AM CST OZEMPIC, 0.25 OR 0.5 MG/DOSE, 2 MG/3ML injection [Pharmacy Med Name: Ozempic (0.25 or 0.5 MG/DOSE) Subcutaneous Solution Pen-injector 2 MG/3ML] Medication started: 02/10/2023 Last ordered by JEFFERY WEI: 09/01/2023 (0 days ago) QTY: 3, Refills: 3, Sig: inject 0.5 mg subcutaneously once a week. (changed but equivalent) -> A duplicate request was processed on 09/01/2023. -> Refill x 9 months (until due for an office visit) -> Calculate the quantity and number of refills manually. Last qualifying visit: 05/17/2023 (with JEFFERY WEI) Next scheduled visit: None HBA1C: 6 % on 08/30/2023 [facility] Embedded Refills, Reference: [id number], 09/01/2023 11:05:39 AM Francis VÁSQUEZ: MIKI Refill Centralized Services - Primary Care [[id number]] ([id number]) LABELER * Interface, Out Surescripts Prov Query - 09/01/2023 11:05 AM CST The following lab order(s) may be associated with the following Patient Result Comment (Entered by Lian Cool PA-C at 09/01/2023 8:11 AM): HGB A1C You may discuss these in more detail at your upcoming visit. Warm Lian Taylor PA-C LABELER documented in this encounter Plan of Treatment Upcoming Encounters Date Type Department Care Team Description 10/08/2023 9:40 AM BOLT LABELER [facility] [address] [place] [address] Hemant Fallon, [facility] [address] [place], [place] [address] 03/15/2024 10:45 AM CDT Appointment [facility] [address] [place], [place] [address] Yumiko Hyatt MD [address] [place], [place] [address] documented as of this encounter Visit Diagnoses Diagnosis Type 2 diabetes mellitus without complication, without long-term current use of insulin (HRC) Class 1 obesity with serious comorbidity in adult, unspecified BMI, unspecified obesity type (HRC) documented in this encounter Care Teams Vulcanizer Rubber Plate Relationship Specialty Start Date End Date Jeffery Wei DO [address] [place], [place] [address] PCP - General Family Practice 01/31/18 documented as of this encounter
--- OUTSIDE RECORDS SUMMARY | 2023-10-05 13:33 | XMS_ITS | Encounter Summary ---
Author Name Unknown Organization [facility] Address [address] [place] [address] Care Team Providers Care Advance Scout Name Role Phone Shima Higuera Padmini DEAN Primary Care Provider [phone] Encounter Details Date Type Department Care Team Description 05/10/2023 10:10 AM CDT Lab Visit [facility] [address] [place], [place] [address] Type 2 diabetes mellitus without complication, without long-term current use of insulin (HRC) Social History Tobacco Use Types Packs/Day Years [...] Care Team Description 10/08/2023 9:40 AM CLINICAL DATA MANAGEMENT DIRECTOR Appointment [facility] [address] [place], [place] [address] Hemant Fallon, [facility] [address] [place] [address] 03/15/2024 10:45 AM CDT Appointment [facility] [address] [place] [address] Yumiko Hyatt MD [address] [place] [address] documented as of this encounter Procedures Procedure Name Priority Date/Time Associated Diagnosis Comments HGB A1C Routine 05/10/2023 10:06 AM CDT Type 2 diabetes mellitus without complication, without long-term current use of insulin (HRC) documented in this encounter Results * (ABNORMAL) Hgb A1C (05/10/2023 10:06 AM CDT) Hemoglobin A1C 6.1(H) <=5.6 % 05/10/2023 5:16 PM CDT [facility] Estimated Average Glucose (Calc) 128 < 117 mg/dL 05/10/2023 5:16 PM CDT [facility] Comment:Estimated average gl ucose (eAG) converts A1c into glucose units (mg/dL) and estimates average glucose over the past approximately 3 months. The eAG reference interval (<117 mg/dL) corresponds to an A1c of <5.7%. Blood Venipuncture / Unknown 05/10/2023 10:06 AM CDT 05/10/2023 10:06 AM CDT Narrative [facility] - 05/10/2023 5:16 PM CDT For patients not previously diagnosed with diabetes: 5.7-6.4%: Increased risk for diabetes 6.5% and greater: Diagnostic for diabetes For patients diagnosed with diabetes: <8.0%: Goal of therapy for ages 18-75 Clinicians may recommend a higher or lower goal for specific individuals. Shima Higuera DO LAB[facility]1 [facility] [address] [address], [facility] [phone] documented in this encounter Visit Diagnoses Diagnosis Type 2 diabetes mellitus without complication, without long-term current use of insulin (HRC) documented in this encounter Care Teams Advance Scout Relationship Specialty Start Date End Date Shima Higuera DO [address] [place] [address] PCP - General Family Practice 01/31/18 documented as of this encounter
--- OUTSIDE RECORDS SUMMARY | 2023-10-05 13:33 | XMS_ITS | Encounter Summary ---
Author Name Unknown Organization [facility] Address [address] [place] [address] Care Team Providers Care A/C Tech Name Role Phone Shima Higuera Primary Care Provider [phone] Reason for Visit * Reason Comments Other Couple of months she has had tingling in both her feet, worse in evening and when sitting Encounter Details Date Type Department Care Team Description 03/22/2023 2:30 PM CDT Office [facility] [address] [place], [place] [id number] Luisa Dixon, CROWN CERAMIST, COMPUTER ARTIST [address] [place], [place] [id number] Paresthesia (Primary Dx) Social History Tobacco Use Types Packs/Day Years [...] Sign Reading Time Taken Comments Blood Pressure 126/75 03/22/2023 2:28 PM CDT Pulse 92 03/22/2023 2:28 PM CDT Temperature - - Respiratory Rate - - Oxygen Saturation - - Inhaled Oxygen Concentration - - Weight 92.5 kg (204 lb) 03/22/2023 2:28 PM CDT Height - - Body Mass Index 34.2 02/10/2023 10:17 AM CDT documented in this encounter Progress Notes * Luisa Dixon, JOSÉ MANUEL, COMPUTER ARTIST - 03/22/2023 2:30 PM CDT Subjective: Patient ID: Lidia Akhtar is a 72 y.o. year old female Chief Complaint: Tingling in the feet HPI This is a 72-year-old female here today for evaluation of tingling in the feet. Symptoms began several months ago. Medical history is significant for type 2 diabetes, hypertension, s/p bariatric surgery. Two months ago she began to have tingling in the forefoot and toes bilaterally. No pain. No history of falls. No back pain or symptoms of radiculopathy. Labs were checked on February 10. A1c was 7.3, electrolytes were normal Notably, she takes nortriptyline 100 mg qhs for migraine prophylaxis. No concern for Lyme disease, says she rarely gets outside. Past Medical History: Diagnosis Date Abnormal chest CT 09/26/2018 increased prominence of mediastinal lymph nodes in comparison to chest CT from 07/02/14 Cancer ([facility]C) basal and squamous skin cancer removal Chronic rhinitis Degenerative joint disease Headache(784.0) Hyperlipidemia (HR) Hypertension ([facility]) LAP GASTRIC BYPASS 10/02/2003 Varicose veins Varicose veins of lower extremities with complications 07/09/2008 LW Modifier: surgery R and L ; Varicose Veins w Pain Outpatient Medications Prior to Visit Medication Sig Dispense Refill acetaminophen (TYLENOL ARTHRITIS) 650 MG controlled release tablet As needed 1 tab every 4-6 hours,not more than 4000 mg/d. atorvastatin (LIPITOR) 40 MG tablet Take 1 Tablet (40 mg) by mouth daily. 90 Tablet 3 Blood Glucose Monitoring Suppl (BLOOD GLUCOSE METER KIT) Use as directed. 1 Kit 0 blood glucose test strip Use 1 Each to test three times a day. 300 Strip 3 cholecalciferol (VITAMIN D3) 1000 UNITS tablet Take 1 Tablet (1,000 Units) by mouth daily. cyanocobalamin 500 MCG tablet Take by mouth. DENTA 5000 PLUS 1.1 % cream Take by mouth daily. EPINEPHrine (EPIPEN) 0.3 MG/0.3ML injection Inject 0.3 mL intramuscularly as needed (Inject 1 Dose into the muscle as needed.). 1 Each 1 fluticasone (FLONASE) 50 MCG/ACT nasal solution PLACE 1-2 SPRAYS INTO BOTH NOSTRILS DAILY. 48 g 3 furosemide (LASIX) 20 MG tablet Take 1 Tablet (20 mg) by mouth daily as needed. For leg swelling. 90 Tablet 3 ketoconazole (NIZORAL) 2 % cream Apply thin layer to rash in skin folds BID prn 60 g 3 lancets Use 1 Each to test three times a day. 100 Each 11 loratadine (CLARITIN) 10 MG tablet Take 1 Tablet (10 mg) by mouth daily. metFORMIN (GLUCOPHAGE) 500 MG tablet Take 2 Tablets (1,000 mg) by mouth two times a day with meals.Week 3: 500 mg with breakfast and 1000 mg with evening meal, Week 4: 1000 mg with breakfast and evening meal 360 Tablet 3 metoprolol succinate (TOPROL XL) 25 MG 24 hour release tablet TAKE 1 TABLET BY MOUTH EVERY DAY 90 Tablet 3 Multiple Vitamins-Minerals (MULTIVITAMIN OR) Take 1 tablet by mouth daily (every 24 hours). nortriptyline (PAMELOR) 50 MG capsule Take 2 Capsules (100 mg) by mouth every evening. nystatin (MYCOSTATIN) 928207 UNIT/GM powder Apply topically two times a day. Prn rash 60 g 11 semaglutide (OZEMPIC) 2 MG/3ML injection Inject 0.25 mg subcutaneously once a week. 3 mL 2 SUMAtriptan (IMITREX) 100 MG tablet Take 1 Tablet (100 mg) by mouth as needed for Migraine (Take 100 mg by mouth as needed for Migraine.). Indications: CHANEL ARAIZA [facility] Jun 14, 2014 10:42 AM pt tooktwo tabs this am valsartan/hydrochlorothiazide (DIOVAN-HCT) 80-12.5 MG tablet Take 1 Tablet by mouth daily. 90 Tablet 3 No facility-administered medications prior to visit. Allergies Bee venom, Benzoin, Oxycodone, Sulfa antibiotics, and Wound dressing adhesive Social History Social History Narrative Not on file Review of Systems Pertinent items are noted in HPI. Objective: Physical Exam BP 126/75 (BP Location: Right Arm, BP Cuff Size: Regular) Pulse 92 Wt 204 lb (92.5 kg) BMI 34.20 kg/m?? General: Alert and oriented female in no acute distress HEENT: Normocephalic, atruamatic. Normal external eye exam. Thyroid midline without mass or tenderness. Lungs: Clear to auscultation bilaterally Heart: RRR, nomal S1 S2, no murmur Abdomen: Abdomen soft, non-distended. Positive bowel sounds. No organomegaly or mass. Non-tender. Extremities: Warm and well-perfused. Good capillary refill. DP pulses 2+ bilaterally. Skin: Normal color, texture, and turgor, no rashes or lesions Neurologic: Normal coordination and gait. Monofilament test 3/3 bilaterally. Assessment & Plan: Lidia was seen today for other. Diagnoses and all orders for this visit: Paresthesia Suspicious for neuropathy. Discussed possible etiologies, including DM. The following labs are ordered. Increase nortriptyline to 125 mg qhs. Cautioned of possible sedation. Follow-up in 1 month if symptoms do not improve. - Vitamin B12 Only; Future - Folate Only (4Hr Fast Recommended); Future - TSH; Future - nortriptyline (PAMELOR) 50 MG capsule; Take 2 Capsules (100 mg) by mouth every evening. - nortriptyline (PAMELOR) 25 MG capsule; Take 1 Capsule (25 mg) by mouth every evening. documented in this encounter Plan of Treatment Upcoming Encounters Date Type Department Care Team Description 10/08/2023 9:40 AM VESSEL CAPTAIN [facility]ment [facility] [address] [place], [place] [phone] Hemant Fallon, [facility] [address] [place], [place] [address] 03/15/2024 10:45 AM CDT Appointment [facility] [address] [place], [place] [phone] Yumiko Hyatt MD [address] [place], [place] [phone] documented as of this encounter Results * TSH (03/22/2023 2:59 PM CDT) TSH, Sensitive 0.77 0.30 - 4.50 uIU/mL 03/22/2023 10:23 PM CDT [facility] Blood Venipuncture / Unknown 03/22/2023 2:59 PM CDT 03/22/2023 2:59 PM CDT Luisa Dixon APRN, CNP LAB_1 Performing Organization Address [facility] Co de Phone Number [facility] [address] [place] [address] * Folate Only (4Hr Fast Recommended) (03/22/2023 2:59 PM CDT) Pathologist [facility] Folate 19.0 >=7.0 ng/mL 03/22/2023 10:18 PM CDT [facility] Blood Venipuncture / Unknown 03/22/2023 2:59 PM CDT 03/22/2023 2:59 PM CDT Luisa Dixon APRN, CNP LAB_1 Performing Organization Address [facility] de Phone Number [facility] [address] [place] [address] * (ABNORMAL) Vitamin B12 Only (03/22/2023 2:59 PM CDT) Pathologist [facility] Vitamin B12 >2,000(H) 213 - 816 pg/mL 03/22/2023 10:23 PM CDT [facility] Blood Venipuncture / Unknown 03/22/2023 2:59 PM CDT 03/22/2023 2:59 PM CDT Luisa Dixon APRN, CNP LAB_1 Performing Organization Address [facility] Co de Phone Number [facility] [address] [place] [address] documented in this encounter Visit Diagnoses Diagnosis Paresthesia- Primary Disturbance of skin sensation documented in this encounter Care Teams A/C Tech Relationship Specialty Start Date End Date Shima Higuera DO [address] [place] [address] PCP - General Family Practice 01/31/18 documented as of this encounter
--- OUTSIDE RECORDS SUMMARY | 2023-10-05 13:33 | XMS_ITS | Encounter Summary ---
Author Name Unknown Organization [facility] Address [address] [place] [address] Care Team Providers Care Air Cargo Ground Operations Supervisor Name Role Phone Shima Higuera Padmini DEAN Primary Care Provider [phone] Encounter Details Date Type Department Care Team Description 08/30/2023 10:00 AM ELIGIBILITY SPECIALIST Lab Visit [facility] [address] [place] [address] Type 2 diabetes mellitus without complication, without [...] Department Care Team Description 10/08/2023 9:40 AM ELIGIBILITY SPECIALIST Appointment [facility] [address] [place], [place] [address] Hemant Fallon, [facility] [address] [place], [place] [address] 03/15/2024 10:45 AM CDT Appointment [facility] [address] [place], [place] [phone] Yumiko Hyatt MD [address] [place] [address] documented as of this encounter Procedures Procedure Name Priority Date/Time Associated Diagnosis Comments CREATININE / GFR Routine 08/30/2023 10:0 1 AM ELIGIBILITY SPECIALIST Type 2 diabetes mellitus without complication, without long-term current use of insulin (HRC) ELECTROLYTE PANEL Routine 08/30/2023 10: 01 AM ELIGIBILITY SPECIALIST Type 2 diabetes mellitus without complication, without long-term current use of insulin (HRC) ALBUMIN/CREAT RATIO Routine 08/30/2023 1 0:01 AM ELIGIBILITY SPECIALIST Type 2 diabetes mellitus without complication, without long-term current use of insulin (HRC) HGB A1C Routine 08/30/2023 10:01 AM ELIGIBILITY SPECIALIST Type 2 diabetes mellitus without complication, without long-term current use of insulin (HRC) documented in this encounter Results * Albumin/Creatinine Ratio,Random Urine (08/30/2023 10:01 AM [facility]) Albumin/Creati nine Ratio, Urine, Random 24 <30 mg/g 08/30/2023 3:02 PM [facility] Albumin, Urine, Random 36.4 mg/L 08/30/2023 3:02 PM [facility] Creatinine, Urine, Random 150 >20 mg/dL mg/dL 08/30/2023 3:02 PM [facility] Urine Non-blood Collection / Unknown 08/30/2023 10:01 AM ELIGIBILITY SPECIALIST 08/30/2023 10:01 AM [facility] Shima Higuera DO LAB_1 [facility] [address] [place] [address], [facility] [phone] * Creatinine / GFR (08/30/2023 10:01 AM [facility]) Creatinine 0.71 0.55 - 1.02 mg/dL 08/30/2023 3:10 PM [facility] GFR, Estimated >60 >60 mL/min/1.7 3m2 08/30/2023 3:10 PM [facility] Blood Venipuncture / Unknown 08/30/2023 10:01 AM ELIGIBILITY SPECIALIST 08/30/2023 10:01 AM [facility] Shimagalina Higuera DO LAB_1 [facility] [address] [place] [address], [facility] [phone] * Electrolyte Panel (08/30/2023 10:01 AM [facility]) [facility] Sodium 142 136 - 145 mmol/L 08/30/2023 3:10 PM [facility] Potassium 4.1 3.5 - 5.1 mmol/L 08/30/2023 3:10 PM [facility] Chloride 104 98 - 109 mmol/L 08/30/2023 3:10 PM [facility] CO2 26 20 - 29 mmol/L 08/30/2023 3:10 PM [facility] Anion Gap 12 7 - 16 mmol/L 08/30/2023 3:10 PM [facility] Blood Venipuncture / Unknown 08/30/2023 10:01 AM [facility] 08/30/2023 10:01 AM [facility] Shima Higuera DO LAB_1 [facility] [address] [place] [address], [facility] [phone] * (ABNORMAL) Hgb A1c (08/30/2023 10:01 AM [facility]) [facility] Hemoglobin A1C 6.0(H) <=5.6 % 08/30/2023 6:05 PM [facility] Estimated Average Glucose (Calc) 126 < 117 mg/dL 08/30/2023 6:05 PM ELIGIBILITY SPECIALIST [facility] Comment:Estimated average gl ucose (eAG) converts A1c into glucose units (mg/dL) and estimates average glucose over the past approximately 3 months. The eAG reference interval (<117 mg/dL) corresponds to an A1c of <5.7%. Blood Venipuncture / Unknown 08/30/2023 10:01 AM ELIGIBILITY SPECIALIST 08/30/2023 10:01 AM ELIGIBILITY SPECIALIST Narrative [facility] - 08/30/2023 6:05 PM ELIGIBILITY SPECIALIST For patients not previously diagnosed with diabetes: 5.7-6.4%: Increased risk for diabetes 6.5% and greater: Diagnostic for diabetes For patients diagnosed with diabetes: <8.0%: Goal of therapy for ages 18-75 Clinicians may recommend a higher or lower goal for specific individuals. Shima Higuera DO LAB_1 [facility] [address] [phone] documented in this encounter Visit Diagnoses Diagnosis Type 2 diabetes mellitus without complication, without long-term current use of insulin (HRC) documented in this encounter Care Teams Air Cargo Ground Operations Supervisor Relationship Specialty Start Date End Date Shima Higuera DO [address] [place] [address] PCP - General Family Practice 01/31/18 documented as of this encounter
--- OUTSIDE RECORDS SUMMARY | 2023-10-05 13:33 | XMS_ITS | Encounter Summary ---
Author Name Unknown Organization [facility] Address [address], [place] [address] Care Team Providers Care Bullet Assembly Press Operator Name Role Phone Shima Higuera DO Primary Care Provider [phone] Reason for Referral * Procedure/Equipment (Routine) - Incomplete Specialty Diagnoses / Procedures Referred By Contac t Referred To Contact Diagnoses Cough, unspecified type Lower respiratory infection Procedures XR Chest 2 Views Shima Higuera DO [address] [place] [address] Referral ID Status Reason Start Date Expiration Date V isits Requested Visits Authorized [id number] Incomplete 10/21/2023 01/19/2025 1 1 TS DIRECTOR * Procedure/Equipment (Routine) - Incomplete Specialty Diagnoses / Procedures Referred By Contac t Referred To Contact Diagnoses Cough, unspecified type Procedures XR Chest 2 Views Shima Higuera DO [address] [place] [address] Referral ID Status Reason Start Date Expiration Date V isits Requested Visits Authorized [id number] Incomplete 09/20/2023 12/19/2024 1 1 TS DIRECTOR Reason for Visit * Reason Comments Cough RUNNY NOSE Pharyngitis Encounter Details Date Type Department Care Team Description 09/20/2023 11:00 AM GRANTS DIRECTOR [facility] [address] [place] [address] Shima Higuera DO [address] [place] [address] Lower respiratory infection (Primary Dx); Cough, unspecified type Social History Tobacco Use Types Packs/Day Years [...] Sign Reading Time Taken Comments Blood Pressure 110/67 09/20/2023 11:05 AM GRANTS DIRECTOR Pulse 118 09/20/2023 11:05 AM GRANTS DIRECTOR Temperature 36.5 ??C (97.7 ??F) 09/20/2023 11:[address] Respiratory Rate - - Oxygen Saturation 94% 09/20/2023 11:05 AM GRANTS DIRECTOR Inhaled Oxygen Concentration - - Weight 76.2 kg (168 lb) 09/20/2023 11:05 AM GRANTS DIRECTOR Height - - Body Mass Index 28.16 02/10/2023 10:17 AM CDT documented in this encounter Progress Notes * Shima Higuera DO - 09/20/2023 11:00 AM CST Subjective: Chief Complaint Patient presents with Cough RUNNY NOSE Pharyngitis Lidia Akhtar is here today for cough and congestion. Has been going on for 2 weeks. Feeling worn out with little energy. Feels feverish on and off. Reviewed patient Past medical history, medications, allergies and Social/Family history. Updated inEpic. Objective: BP 110/67 (BP Location: Right Arm, BP Cuff Size: Regular) Pulse (!) 118 Temp 97.7 ??F (36.5 ??C) Wt 168 lb (76.2 kg) SpO2 94% BMI 28.16 kg/m?? Physical Exam Nursing note and vitals reviewed. Constitutional: appears well-developed and well-nourished. No distress. HENT: Head: Normocephalic and atraumatic. Right Ear: External ear normal. TM normal Left Ear: External ear normal. TM normal Nose: Mucosal edema and rhinorrhea present. Mouth/Throat: Mucous membranes are normal. Posterior oropharyngeal erythema present. No oropharyngeal exudate. Eyes: Conjunctivae and EOM are normal. Pupils are equal, round, and reactive to light. Neck: Neck supple. No Cervical Adenopathy. Cardiovascular: Normal rate, regular rhythm and normal heart sounds. Pulmonary/Chest: Effort normal and breath sounds with crackles on the right side and some mild wheezing. No respiratory distress. Skin: Not diaphoretic. No rashes noted Assessment/Plan: 1. Cough, unspecified type - XR Chest 2 Views; Future - doxycycline (VIBRAMYCIN) 100 MG capsule; Take 1 Capsule (100 mg) by mouth two times a day for 7 days. Dispense: 14 Capsule; Refill: 0 2. Lower respiratory infection Given duration of symptoms and CXR that looks like a possible PNA in RLL will treat with doxycyline. Encouraged fluids and rest. Tylenol or ibuprofen for fevers and pain. Pt should follow up if symtpoms do not improve or worsen. - doxycycline (VIBRAMYCIN) 100 MG capsule; Take 1 Capsule (100 mg) by mouth two times a day for 7 days. Dispense: 14 Capsule; Refill: 0 Patient understands that I will only add comments to abnormal lab or if it will change care plan. Shima Higuera DO TS DIRECTOR documented in this encounter Plan of Treatment Upcoming Encounters Date Type Department Care Team Description 10/08/2023 9:40 AM GRANTS DIRECTOR [facility] [address] [place], [place] [address] Hemant Fallon, [facility] [address] [place] [address] 03/15/2024 10:45 AM CDT Appointment [facility] [address] [place] [address] Yumiko Hyatt MD [address] [place] [address] Scheduled Orders Name Type Priority Associated Diagnoses Orde r Schedule XR Chest 2 Views Imaging New Routine Cough, unspecified type Lower respiratory infection Expected: 10/21/2023 (Approximate), Expires: 10/20/2024 documented as of this encounter Results * XR Chest 2 Views (09/20/2023 11:35 AM GRANTS DIRECTOR) Anatomical Region Laterality Modality Chest, Lung Digital Radiogra phy 09/20/2023 11:3 1 AM GRANTS DIRECTOR Impressions 09/20/2023 12:42 PM GRANTS DIRECTOR COMPARISON: ??10/26/2019 FINDINGS: 2 views obtained. Airspace [...] on follow-up, CT would be recommended. Shima ZAMUDIO GD documented in this encounter Visit Diagnoses Diagnosis Lower respiratory infection- Primary Other diseases of respiratory system, not elsewhere classified Cough, unspecified type Cough, unspecified type documented in this encounter Care Teams Bullet Assembly Press Operator Relationship Specialty Start Date End Date Shima Higuera DO [address] [place] [address] PCP - General Family Practice 01/31/18 documented as of this encounter
--- OUTSIDE RECORDS SUMMARY | 2023-10-05 13:33 | XMS_ITS | Encounter Summary ---
Author Name Unknown Organization [facility] Address [address] [place] [address] Care Team Providers Care Lift Electrician Name Role Phone Shima Higuera Primary Care Provider [phone] Encounter Details Date Type Department Care Team Description 03/01/2023 6:25 PM CDT Lab Visit [facility] [address] [place] [address] Screen for colon cancer Social History Tobacco Use Types Packs/Day Years [...] Care Team Description 10/08/2023 9:40 AM CLINICAL RESEARCH COORDINATOR Appointment [facility] [address] [place] [address] Hemant Fallon, [facility] [address] [place], [place] [address] 03/15/2024 10:45 AM CDT Appointment [facility] [address] [place], [place] [phone] Yumiko Hyatt MD [address] [place] [address] documented as of this encounter Procedures Procedure Name Priority Date/Time Associated Diagnosis Comments FIT COLON RECTAL CANCER SCREENING Routine 03/01/2023 8:00 AM CDT Screen for colon cancer documented in this encounter Results * FIT Colon Rectal Cancer Screening (03/01/2023 8:00 AM CDT) FIT Specimen 1 Negative Negative 03/02/2023 2:22 AM CDT [facility] Stool 03/01/2023 8:00 AM CDT 03/01/2023 5:37 PM CDT Shima Higuera DO LAB_1 Performing Organization Address City/State/[facility] Co de Phone Number [facility] [address] [address] [phone] documented in this encounter Visit Diagnoses Diagnosis Screen for colon cancer Special screening for malignant neoplasms, colon documented in this encounter Care Teams Lift Electrician Relationship Specialty Start Date End Date Shima Higuera DO [address] [place] [address] PCP - General Family Practice 01/31/18 documented as of this encounter
--- OUTSIDE RECORDS SUMMARY | 2023-10-05 13:33 | XMS_ITS | Encounter Summary ---
Author Name Unknown Organization [facility] Address [address] [place] [address] Care Team Providers Care Senior Mechanical Development Engineer Name Role Phone Shima Higuera Primary Care Provider [phone] Reason for Visit * Reason Comments Skin Check Encounter Details Date Type Department Care Team Description 03/03/2023 10:45 AM CDT Office Visit [facility] [address] [place] [address] Yumiko Hyatt MD [address] [place] [id number] Candidal intertrigo (Primary Dx); History of nonmelanoma skin cancer; Actinic keratosis Social History Tobacco Use Types Packs/Day Years [...] on file documented as of this encounter Progress Notes * Yumiko Hyatt MD - 03/03/2023 10:45 AM CDT Chief Complaint Patient presents with Skin Check Problem List Dermatology Problems History of nonmelanoma skin cancer Overview right preauricular cheek, 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 female presenting for follow-up skin exam. Last exam was about 1 yr ago Rash on the abdomen and under breasts comes and goes, worse with heat. Has Rx for nystop powder, keto crm History of skin cancer: BCC, SCC Family history of melanoma: no PHYSICAL EXAM: Skin exam was conducted to include the scalp, face, neck, trunk, buttocks, pubic area, and extremities and was normal with the following exceptions (in addition to what is listed in the assessment and plan): [place] patch under pannus Well-healed scar(s) on rt cheek x 2, L nasal sidewall, L dorsal hand Waxy brown macules on legs, arms ASSESSMENT AND PLAN: 1. Candidal intertrigo -use keto cream or nystatin powder prn flares -try zinc oxide ointment qHS 2. History of nonmelanoma skin cancer No sign of recurrence 3. Actinic keratosis Right Forehead Rough, scaly, thin papule(s) CRYOTHERAPY PROCEDURE Risks, benefits and alternatives to treatment with cryotherapy were discussed. Procedure: Liquid nitrogen was applied to each lesion for a [id number]-[id number]-piji cycle of 8 seconds. Aftercare discussed. Cryotherapy, skin lesion (No CPT) - Right Forehead Recommended daily use of zinc oxide-containing sunscreen SPF 30 or greater Follow-up 1 year for skin exam unless bleeding/non-healing, unusual or changing lesions arise Yumiko Haytt MD documented in this encounter Plan of Treatment Upcoming Encounters Date Type Department Care Team Description 10/08/2023 9:40 AM CRYSTAL LAPPER [facility] [address] [place], [place] [address] Hemant Fallon, [facility] [address] [place] [id number] 03/15/2024 10:45 AM CDT Appointment [facility] [address] [place] [address] Yumiko Hyatt MD [address] [place], [place] [id number] documented as of this encounter Procedures Procedure Name Priority Date/Time Associated Diagnosis Comments CRYOTHERAPY SKIN LESION Routine 03/03/20 11:02 AM CDT Actinic keratosis documented in this encounter Results * Cryotherapy, skin lesion (No CPT) (03/03/2023 11:02 AM CDT) Yumiko Hyatt MD DERM PROCEDURE ORDER ZOILA EXTERNAL RESULTS documented in this encounter Visit Diagnoses Diagnosis Candidal intertrigo- Primary Candidiasis of skin and nails History of nonmelanoma skin cancer Personal history of other malignant neoplasm of skin Actinic keratosis documented in this encounter Care Teams Senior Mechanical Development Engineer Relationship Specialty Start Date End Date Shima Higuera DO [address] [place], [place] [address] PCP - General Family Practice 01/31/18 documented as of this encounter
--- OUTSIDE RECORDS SUMMARY | 2023-10-05 13:33 | XMS_ITS | Encounter Summary ---
Author Name Unknown Organization [facility] Address [address] [place] [address] Care Team Providers Care Wood Crafter Name Role Phone Shima Higuera Primary Care Provider [phone] Encounter Details Date Type Department Care Team Description 03/09/2023 Orders Only [facility] Provider, [place] [address] Social History Tobacco Use Types Packs/Day Years [...] Department Care Team Description 10/08/2023 9:40 AM BABY FORMULA WORKER Appointment [facility] [address] [place], [place] [id number] Hemant Fallon, [facility] [address] [place], [place] [id number] 03/15/2024 10:45 AM CDT Appointment [facility] [address] [place], [place] [phone] Yumiko Hyatt MD [address] [place], [place] [id number] documented as of this encounter Procedures Procedure Name Priority Date/Time Associated Diagnosis Comments PAMELA (DIABETIC EYE EXAM) 03/09/2023 documented in this encounter Results * PAMELA (DIABETIC EYE EXAM) (03/09/2023) Interface Provider MD DUMMY/OTHER/AR documented in this encounter Visit Diagnoses Not on filedocumented in this encounter Care Teams Wood Crafter Relationship Specialty Start Date End Date Shima Higuera DO [address] [place] [address] PCP - General Family Practice 01/31/18 documented as of this encounter
--- OUTSIDE RECORDS SUMMARY | 2023-10-05 13:33 | XMS_ITS | Encounter Summary ---
Author Name Unknown Organization [facility] Address [address] [place] [address] Care Team Providers Care Fish Receiver Name Role Phone Shima Higuera DO Primary Care Provider [phone] Reason for Visit * Procedure/Equipment (Routine) - Incomplete Specialty Diagnoses / Procedures Referred By Roxi castillo Referred To Contact Diagnoses Encounter for screening mammogram for malignant neoplasm of breast Procedures MM Mammogram Screening Bilat W CAD MM Mammogram Screening Bilat W 3D Jose W CAD Shima Higuera DO [address] [place] [address] Referral ID Status Reason Start Date Expiration Date V isits Requested Visits Authorized [id number] Incomplete 02/10/2023 05/11/2024 1 1 Encounter Details Date Type Department Care Team Description 03/25/2023 10:20 AM CDT Ancillary Procedure [facility] [address] [place] [address] Encounter for screening mammogram for malignant neoplasm of breast Social History Tobacco Use Types Packs/Day Years [...] Department Care Team Description 10/08/2023 9:40 AM CORN HUSKER Appointment [facility] [address] [place], [place] [address] Hemant Fallon, [facility] [address] [place] [place] [address] 03/15/2024 10:45 AM CDT Appointment [facility] [address] [place], [place] [phone] Yumiko Hyatt MD [address] [place] [address] documented as of this encounter Procedures Procedure Name Priority Date/Time Associated Diagnosis Comments MM MAMMOGRAM SCREENING BILAT W CAD Routine 03/25/2023 10:27 AM CDT Encounter for screening mammogram for malignant neoplasm of breast documented in this encounter Results * MM Mammogram Screening Bilat W CAD (03/25/2023 10:27 AM CDT) Anatomical Region Laterality Modality Breast Bilateral Mammography Impressions 03/25/2023 3:50 PM CDT : ACR BI-RADS Category 1: Negative RECOMMENDATION: Follow Up Imaging in 12 months - Bilateral The results and recommendations of this examination will be communicated to the patient. Narrative 03/25/2023 3:50 PM CDT MM MAMMOGRAM SCREENING BILAT W CAD performed on 03/25/23 Compared to: 02/10/2022 MM Mammogram Screening Bilat W CAD, 02/03/2021 MM Mammogram Screening Bilat W CAD, 10/30/2019 MM Mammogram Screening Bilat W CAD, 10/14/2018 MM Mammogram Screening Bilat W CAD, and 10/13/2017 MM Mammogram Screening Bilat W CAD ?? FINDINGS: Bilateral screening mammogram was performed with the assistance of Computer-Aided Detection . The breasts have scattered areas of fibroglandular density. There is no radiographic evidence of malignancy. ?? Shima L Kalen DO RAD JONES documented in this encounter Visit Diagnoses Diagnosis Encounter for screening mammogram for malignant neoplasm of breast Other screening mammogram documented in this encounter Care Teams Fish Receiver Relationship Specialty Start Date End Date Shima Higuera DO [address] [place] [address] PCP - General Family Practice 01/31/18 documented as of this encounter
--- OUTSIDE RECORDS SUMMARY | 2023-10-05 13:33 | XMS_ITS | Encounter Summary ---
Author Name Unknown Organization [facility] Address [address], [place] [address] Care Team Providers Care Civil Preparedness Coordinator Name Role Phone Shima Higuera Primary Care Provider [phone] Reason for Visit * Reason Comments LIGHTHEADEDNESS Intermittently throu gh out the day x 1 week. Been out of Metoprolol for 2 weeks Encounter Details Date Type Department Care Team Description 09/30/2023 9:00 AM CASE CONSULTANT [facility] [address] [place], [place] [id number] Hemant Fallon, [facility] [address] [place], [place] [address] Lightheadedness (Primary Dx); Abnormal weight loss; Fatigue, unspecified type; Essential hypertension (HRC); Sinus tachycardia Social History Tobacco Use Types Packs/Day Years [...] Comments Blood Pressure 85/62 09/30/2023 9:03 AM CASE CONSULTANT Pulse 136 09/30/2023 9:03 AM CASE CONSULTANT Temperature - - Respiratory Rate - - Oxygen Saturation - - Inhaled Oxygen Concentration - - Weight 74 kg (163 lb 1 oz) 09/30/2023 9:00 AM CS T Height - - Body Mass Index 27.33 02/10/2023 10:17 AM CDT documented in this encounter Progress Notes * Vasyl Hemant, [facility] - 09/30/2023 9:00 AM CST Chief Complaint Patient presents with LIGHTHEADEDNESS Intermittently through out the day x 1 week. Been out of Metoprolol for 2 weeks Subjective: The patient is a 72-year-old female with medical history significant for hyperlipidemia, hypertension, major recurrent depression, migraine headaches and type 2 diabetes. Patient also has sinus tachycardia. She presents to the clinic today with concerns about lightheadedness which has been ongoing for thepast 1 week. Patient states symptoms are intermittent and not associated with any chest pain, orthopnea, PND or exertional dyspnea. Has not noticed any swelling in the lower extremities. Patient notes ongoing weight loss over the past 2 years following diagnosis of type 2 diabetes. This is under good control with most recent A1c at 6.0. Patient admits to decreased appetite. Review of medical records show over 70 lb weight loss over the past 2 years. Patient attributes that to decreased appetiteas noted above but also concerned that ???something is wrong ???. Of note, patient is on Ozempic aswell as metformin for type 2 diabetes. She is currently on metoprolol as well as valsartan and hydrochlorothiazide for hypertension. Patient states she has been out of metoprolol, which she also takes 4 sinus tachycardia, for the past 2 weeks. She does have chronic migraine headaches and follows with Neurology outside this Care group. Current medications include p.r.n. Imitrex and nortriptyline. Patient notes recent increased dose of nortriptyline by her neurologist. PMH: Patient Active Problem List Diagnosis Essential hypertension (HRC) Hyperlipidemia (HRC) Obesity (HRC) Osteoarthritis of multiple joints Bariatric surgery status Depressive disorder Migraine, chronic, without aura History of nonmelanoma skin cancer Type 2 diabetes mellitus without complication, without long-term current use of insulin (HRC) Sinus tachycardia , Past Surgical History: Procedure Laterality Date DILATION AND CURETTAGE GASTRIC BYPASS LW Problem: Gastric Bypass S/p LW Onset: INGUINAL HERNIA REPAIR BILATERAL LW Problem: Herniorrhaphy Inguinal S/p MOHS SURGERY February TOTAL KNEE ARTHROPLASTY left VARICOSE VEIN SURGERY 4-5 times bilateral VASCULAR SURGERY PROCEDURE Right 06/2008 R GSVRFA and avulsions Medications: Current Outpatient Medications Medication Sig Note Dispense Refill acetaminophen (TYLENOL ARTHRITIS) 650 MG controlled release tablet As needed 1 tab every 4-6 hours,not more than 4000 mg/d. 09/01/2023: PRN atorvastatin (LIPITOR) 40 MG tablet Take 1 [...] cyanocobalamin 500 MCG tablet Take by mouth. EPINEPHrine (EPIPEN) 0.3 MG/0.3ML injection Inject 0.3 mL intramuscularly as needed (Inject 1 Dose into the muscle as needed.). 1 Each 1 fluticasone (FLONASE) 50 MCG/ACT nasal solution PLACE 1-2 SPRAYS INTO BOTH NOSTRILS DAILY. 09/01/2023: PRN 48 g 3 ketoconazole (NIZORAL) 2 % cream Apply thin layer to rash in skin folds BID prn 09/01/2023: PRN 60 g3 lancets Use 1 Each to test three times a day. 100 Each 11 loratadine (CLARITIN) 10 MG tablet Take 1 Tablet (10 mg) by mouth daily. 09/01/2023: PRN metFORMIN (GLUCOPHAGE) 500 MG tablet Take 2 Tablets (1,000 mg) by mouth two times a day with meals.Week 3: 500 mg with breakfast and 1000 mg with evening meal, Week 4: 1000 mg with breakfast and evening meal (Patient taking differently: Take 2 Tablets (1,000 mg) by mouth two times a day with meals. 1000 mg with breakfast and evening meal) 360 Tablet 3 metoprolol succinate (TOPROL XL) 25 MG 24 hour release tablet Take 1 Tablet (25 mg) by mouth daily.90 Tablet 3 Multiple Vitamins-Minerals (MULTIVITAMIN OR) Take 1 tablet by mouth daily (every 24 hours). nortriptyline (PAMELOR) 50 MG capsule Take 3 Capsules (150 mg) by mouth every evening. 270 Capsule 3 nystatin (MYCOSTATIN) 795726 UNIT/GM powder Apply topically two times a day. Prn rash 09/01/2023: PRN 60 g 11 semaglutide (OZEMPIC) 2 MG/3ML injection Inject 0.5 mg subcutaneously once a week. 3 mL 3 SUMAtriptan (IMITREX) 100 MG tablet Take 1 Tablet (100 mg) by mouth as needed for Migraine (Take 100 mg by mouth as needed for Migraine.). Indications: CHANEL ARAIZA Jun 14, 2014 10:42 AM pt tooktwo tabs this am valsartan/hydrochlorothiazide (DIOVAN-HCT) 80-12.5 MG tablet Take 1 Tablet by mouth daily. Hold medication for 1 week and recheck blood pressure at the clinic in 1 week 90 Tablet 3 No current facility-administered medications for this visit. Allergies: Allergies Allergen Reactions Bee Venom Rash Benzoin Rash Oxycodone Confusion Sulfa Antibiotics Rash Wound Dressing Adhesive Dermatitis and Rash Steri-strips have caused a rash. Social Hx: Social History Socioeconomic History Marital status: Single Spouse name: Not on file Number of children: Not on file Years of education: Not on file Highest education level: Not on file Occupational History Occupation: Retired Tobacco Use Smoking status: Never Passive exposure: Never Smokeless tobacco: Never Vaping Use Vaping Use: Never used Substance and Sexual Activity Alcohol use: No Drug use: No Sexual activity: Not Currently Other Topics Concern Bike Helmet Not Asked [place] Yes Exercise Not Asked Guns in home Not Asked Seat Belt Not Asked Special Diet Not Asked Weight Concern Not Asked Social History Narrative Not on file Social Determinants of Health Financial Resource Strain: Not on file Food Insecurity: Not on file Transportation Needs: Not on file Intimate Partner Violence: Not on file Housing Stability: Not on file Family Hx: Family History Problem Relation Age of Onset Diabetes, Type II Father Coronary Artery Disease Father Renal Failure Father Arthritis Father Arthritis Mother Cataract Mother Arthritis Sister Diabetes, Type II Sister Cataract Sister Arthritis Brother Diabetes, Type II Brother Coronary Artery Disease Brother Cancer Maternal Uncle Cancer, Skin Maternal Uncle Cancer, Skin Paternal Uncle Migraines Other nephew Coronary Artery Disease Brother Cancer, Breast Negative Family History Cancer, Ovary Negative Family History Review of Systems Pertinent items are noted in HPI. Objective: Physical Exam: BP (!) 85/62 (BP Location: Right Arm, BP Cuff Size: Regular) Pulse (!) 136 Wt 163 lb 1 oz (74 kg) BMI 27.33 kg/m?? General appearance: alert, cooperative, no distress, appears stated age HEAD: Normocephalic, without obvious abnormality, atraumatic EARS: normal TM's and external ear canals AU THROAT: lips, mucosa, and tongue normal; teeth and gums normal NECK: nontender, no nuchal rigidity, no masses CHEST: Normal chest wall and respirations. Clear to auscultation. HEART: Normal S1 and S2. Tachycardic Regular rhythm. No murmurs, gallops, or rubs. ABDOMEN: abdomen is soft without significant tenderness, masses, organomegaly or guarding NEURO: alert, oriented x3, affect appropriate, no focal neurological deficits, moves all extremities well, no involuntary movements, reflexes at knee and ankle intact EXTREMITY: Extremities warm to touch and pink Assessment & Plan: Lightheadedness - as noted above, patient's blood pressure is quite low. This is likely the course of the lightheadedness. - EKG done today shows sinus tachycardia - other labs are pending, please see EMR - Complete Blood Count-No Diff; Future - ECG 12 Lead Outpatient Abnormal weight loss - etiology not clear strongly suspicious of Ozempic as underlying cause with decreased appetite. - will like to rule out other underlying cause with labs, see EMR. Recent chest x-ray is reviewed, see EMR - if test results are normal, would recommend that patient follows with PCP to review current medications specifically Ozempic. As noted above, diabetes is under excellent control - Comp Metabolic Panel; Future - Prealbumin; Future Fatigue, unspecified type - patient will be notified of test results when available - TSH with Free T4 (if TSH Abnormal); Future Essential hypertension (HRC) - I do recommend that patient holds Diovan/hydrochlorothiazide. Blood pressure check at the clinic in about a week. - okay to continue metoprolol in the setting of sinus tachycardia. - metoprolol succinate (TOPROL XL) 25 MG 24 hour release tablet; Take 1 Tablet (25 mg) by mouth daily. Dispense: 90 Tablet; Refill: 3 - valsartan/hydrochlorothiazide (DIOVAN-HCT) 80-12.5 MG tablet; Take 1 Tablet by mouth daily. Hold medication for 1 week and recheck blood pressure at the clinic in 1 week Dispense: 90 Tablet; Refill: 3 Sinus tachycardia - okay to restart metoprolol The patient will be notified of test results when available. She was fully engaged during visit andwas in agreement with above recommendations. Questions and concerns addressed *This note was created using voice recognition software and may contain some housekeeping room attendant errors* CONSULTANT documented in this encounter Plan of Treatment Upcoming Encounters Date Type Department Care Team Description 10/08/2023 9:40 AM CASE CONSULTANT Appointment [facility] [address] [place], [place] [phone] Hemant Fallon [facility] [address] [place], [place] [address] 03/15/2024 10:45 AM CDT Appointment [facility] [address] [place], [place] [id number] Yumiko Hyatt MD [address] [place] [address] documented as of this encounter Procedures Procedure Name Priority Date/Time Associated Diagnosis Comments ECG 12 LEAD OUTPATIENT Routine 09/30/2023 9:35 AM CASE CONSULTANT Lightheadedness documented in this encounter Results * (ABNORMAL) Prealbumin (09/30/2023 9:49 AM CASE CONSULTANT) Prealbumin 38.5(H) 16.0 - 38.0 mg/dL 09/30/2023 3:44 PM CASE CONSULTANT [facility] Blood Venipuncture / Unknown 09/30/2023 9:49 AM CASE CONSULTANT 09/30/2023 9:49 AM CASE CONSULTANT Hemant Duenas LAB_1 [facility] [address] [place] [address], [facility] * (ABNORMAL) Comp Metabolic Panel (09/30/2023 9:49 AM [facility]) Sodium 137 136 - 145 mmol/L 09/30/2023 3:32 PM [facility] Potassium 3.4(L) 3.5 - 5.1 mmol/L 09/30/2023 3:32 PM [facility] Chloride 99 98 - 109 mmol/L 09/30/2023 3:32 PM [facility] CO2 26 20 - 29 mmol/L 09/30/2023 3:32 PM [facility] Anion Gap 12 7 - 16 mmol/L 09/30/2023 3:32 PM [facility] Calcium 9.7 8.4 - 10.4 mg/dL 09/30/2023 3:32 PM [facility] BUN 31(H) 7 - 26 mg/dL 09/30/2023 3:32 PM [facility] Creatinine 0.88 0.55 - 1.02 mg/dL 09/30/2023 3:32 PM [facility] Alkaline Phosphatase 55 40 - 150 U/L 09/30/2023 3:32 PM [facility] AST (SGOT) 28 10 - 40 U/L 09/30/2023 3:32 PM [facility] ALT (SGPT) 22 <=55 U/L 09/30/2023 3:32 PM [facility] Bilirubin, Total 0.4 0.2 - 1.2 mg/dL 09/30/2023 3:32 PM [facility] Protein, Total 7.2 6.4 - 8.3 g/dL 09/30/2023 3:32 PM [facility] Albumin 3.6 3.5 - 5.0 g/dL 09/30/2023 3:32 PM [facility] Glucose 81 70 - 100 mg/dL 09/30/2023 3:32 PM [facility] Comment:The given reference range is for the fasting state. Non-fasting reference range for glucose is 70 - 180 mg/dL. GFR, Estimated >60 >60 mL/min/1.7 3m2 09/30/2023 3:32 PM CASE CONSULTANT [facility] Hours Fasting 0.0 8 - 12 Hours 09/30/2023 3:32 PM CASE CONSULTANT [facility] Blood Venipuncture / Unknown 09/30/2023 9:49 AM CASE CONSULTANT 09/30/2023 9:49 AM CASE CONSULTANT Hemant Fallon [facility] LAB_1 Performing Organization Address City/[facility]/ZIP Co de Phone Number [facility] [address] [place] [address] * TSH with Free T4 (if TSH Abnormal) (09/30/2023 9:49 AM CASE CONSULTANT) Pathologist [facility] TSH, Reflex 0.91 0.30 - 4.50 uIU/mL 09/30/2023 2:58 PM CASE CONSULTANT [facility] Blood Venipuncture / Unknown 09/30/2023 9:49 AM CASE CONSULTANT 09/30/2023 9:49 AM CASE CONSULTANT [facility] [address] * (ABNORMAL) Complete Blood Count-No Diff (09/30/2023 9:49 AM CASE CONSULTANT) WBC 12.0(H) 3.5 - 10.5 x10(9)/L 09/30/2023 9:[address] [facility] RBC 3.70(L) 3.90 - 5.03 x10(12)/L 09/30/2023 9:[address] [facility] Hemoglobin 12.0 12.0 - 15.5 g/dL 09/30/2023 9:[address] [facility] HCT 37.0 34.9 - 44.5 % 09/30/2023 9:[address] [facility] MCV 100.0 80.0 - 100.0 fL 09/30/2023 9:[address] [facility] MCH 32.4 27.6 - 33.3 pg 09/30/2023 9:51 AM CASE CONSULTANT [facility] MCHC 32.4 31.5 - 35.2 g/dL 09/30/2023 9:51 AM CASE CONSULTANT [facility] RDW 13.0 11.9 - 15.5 % 09/30/2023 9:51 AM CASE CONSULTANT [facility] Platelets 785(H) 150 - 450 x10(9)/L 09/30/2023 9:51 AM CASE CONSULTANT [facility] Blood Venipuncture / Unknown 09/30/2023 9:49 AM CASE CONSULTANT 09/30/2023 9:49 AM CASE CONSULTANT Hemant Fallon [facility] LAB_1 [facility] [address] [place] [address], [facility] * ECG 12 Lead Outpatient (09/30/2023 9:35 AM CASE CONSULTANT) Ventricular Rate 110 BPM [facility] Atrial Rate 110 BPM [facility] P-R Interval 182 ms [facility] QRS Duration 94 ms [facility] QT 336 ms [facility] QTc 454 ms [facility] P [place] 68 degrees MUSE [facility] R [place] -11 degrees MUSE [facility] T [place] 54 degrees MUSE [facility] 09/30/2023 9:35 AM CASE CONSULTANT Narrative [facility] - 09/30/2023 10:00 AM CASE CONSULTANT Sinus tachycardia Otherwise normal ECG When compared with ECG of 28-OCT-2021 08:28, Left anterior fascicular block is no longer Present Reconfirmed by Rodney Garcia ([id number]) on 09/30/2023 10:01:12 AM Procedure Note Addison Garcia MD - 09/30/2023 Sinus tachycardia Otherwise normal ECG When compared with ECG of 28-OCT-2021 08:28, Left anterior fascicular block is no longer Present Reconfirmed by Rodney Garcia ([id number]) on 09/30/2023 10:01:12 AM Hemant Fallon [facility] PN ECG ORDER ZOILA [facility] [address] [place] [address] documented in this encounter Visit Diagnoses Diagnosis Lightheadedness- Primary Dizziness and giddiness Abnormal weight loss Loss of weight Fatigue, unspecified type Essential hypertension (HRC) Unspecified essential hypertension Sinus tachycardia Other specified cardiac dysrhythmias documented in this encounter Care Teams Civil Preparedness Coordinator Relationship Specialty Start Date End Date Shima Higuera DO [address] [place] [address] PCP - General Family Practice 01/31/18 documented as of this encounter
--- OUTSIDE RECORDS SUMMARY | 2023-10-05 13:33 | XMS_ITS | Encounter Summary ---
Author Name Unknown Organization [facility] Address [address] [place] [address] Care Team Providers Care Histology Technician Name Role Phone Shima Higuera DO Primary Care Provider [phone] Reason for Visit * Procedure/Equipment (Routine) - Incomplete Specialty Diagnoses / Procedures Referred By Roxi t Referred To Contact Diagnoses Cough, unspecified type Procedures XR Chest 2 Views Shima Higuera DO [address] [place] [address] Referral ID Status Reason Start Date Expiration Date V isits Requested Visits Authorized [id number] Incomplete 09/20/2023 12/19/2024 1 1 Encounter Details Date Type Department Care Team Description 09/20/2023 11:30 AM COMMUNICATIONS EQUIPMENT SUPERVISOR Ancillary Procedure [facility] [address] [place], [place] [phone] Shima Higuera DO [address] [place] [address] Cough, unspecified type Social History Tobacco Use [...] Department Care Team Description 10/08/2023 9:40 AM COMMUNICATIONS EQUIPMENT SUPERVISOR [facility] [address] [place], [place] [address] Hemant Fallon, [facility] [address] [place], [place] [address] 03/15/2024 10:45 AM CDT Appointment [facility] [address] [place] [address] Yumiko Hyatt MD [address] [place] [address] documented as of this encounter Procedures Procedure Name Priority Date/Time Associated Diagnosis Comments XR CHEST 2 VIEWS Routine 09/20/2023 11:3 5 AM COMMUNICATIONS EQUIPMENT SUPERVISOR Cough, unspecified type documented in this encounter Results * XR Chest 2 Views (09/20/2023 11:35 AM COMMUNICATIONS EQUIPMENT SUPERVISOR) Anatomical Region Laterality Modality Chest, Lung Digital Radiogra phy 09/20/2023 11:3 1 AM COMMUNICATIONS EQUIPMENT SUPERVISOR Impressions 09/20/2023 12:42 PM COMMUNICATIONS EQUIPMENT SUPERVISOR COMPARISON: ??10/26/2019 FINDINGS: 2 views obtained. Airspace [...] documented in this encounter Visit Diagnoses Diagnosis Cough, unspecified type documented in this encounter Care Teams Histology Technician Relationship Specialty Start Date End Date Shima Higuera DO [address] [place] [address] PCP - General Family Practice 01/31/18 documented as of this encounter
--- OUTSIDE RECORDS SUMMARY | 2023-10-05 13:33 | XMS_ITS | Encounter Summary ---
Author Name Unknown Organization [facility] Address [address], [place] [address] Care Team Providers Care Fabrication Machine Operator Name Role Phone Shima Higuera DO Primary Care Provider [phone] Reason for Visit * Reason Comments Diabetes Medicare Annual Wellness Encounter Details Date Type Department Care Team Description 09/01/2023 10:20 AM CONTENT CREATION MANAGER [facility] [address] [place], [place] [address] Shima Higuera DO [address] [place], [place] [address] Encounter for Medicare annual wellness exam (Primary Dx); Type 2 diabetes mellitus without complication, without long-term current use of insulin (HRC); Essential hypertension (HRC); Mixed hyperlipidemia (HRC); Class 1 obesity with serious comorbidity in adult, unspecified BMI, unspecified obesity type (HRC); Chronic migraine without aura without status migrainosus, not intractable Social History Tobacco Use Types Packs/Day Years [...] Sign Reading Time Taken Comments Blood Pressure 99/65 09/01/2023 10:25 AM CONTENT CREATION MANAGER Pulse 93 09/01/2023 10:25 AM CONTENT CREATION MANAGER Temperature - - Respiratory Rate - - Oxygen Saturation - - Inhaled Oxygen Concentration - - Weight 80.3 kg (177 lb) 09/01/2023 10:25 AM CONTENT CREATION MANAGER Height - - Body Mass Index 29.67 02/10/2023 10:17 AM CDT documented in this encounter Patient Instructions * Patient Instructions* Zuly Erwin MA - 09/01/2023 10:20 AM CONTENT CREATION MANAGER Annual Wellness Visit Summary Your care team is recommending the following tests, procedures or services. Some of these recommendations may not be fully covered by Medicare or your insurance. If you have questions, check with your insurance to determine coverage before completing these services. Health Maintenance Due Health Maintenance Due Topic Date Due ??? MTM Targeted Never done ??? COVID-19 Vaccine (2022- season) 2023 If your Medicare Welcome or Annual Wellness Visit is showing you are due in the above list, this will be updated after this visit. You had this completed today and are not due for another year. ENT CREATION MANAGER documented in this encounter Progress Notes * Shima Higuera DO - 09/01/2023 10:20 AM CST Medicare Annual Wellness Visit Subjective/Historical: Lidia Akhtar is a 72 y.o. old female Chief Complaint Patient presents with Diabetes Medicare Annual Wellness Current Concerns: Chief Complaint Patient presents with Diabetes Medicare Annual Wellness Lidia Akhtar is here today for diabetes check. Current diabetic medications include: oral agents/insulin: ozempic and metformin Eye exam current (within one year): yes Weight trend:down Prior visit with law firm partner/Care coordination: yes Current diet:limiting portions Current exercise: walking Lipids- Currently on a statin HTN- stable. . Tobacco- no Heart Health: As recommended by the [place] [employer], we use information about your health to estimate your risk for a heart attack or stroke. Your risk in the next 10 years is 15.1%. The information we used to estimate your risk is: Your age 72, sex, blood pressure of 99/65 mm Hg, use of blood pressure lowering medication, total cholesterol of 135 mg/dl, HDL (good cholesterol) of 41 mg/dl, diagnosis of diabetes, no tobacco or nicotine use. You can improve your heart health by doing the following in order of priority: For information on self-directed lifestyle change for weight management, go to [email or web address] Reviewed patient Past medical history, medications, allergies and Social/Family history. Updated inEpic. Advance Directives: No advance directives are on file. Advance directives completed but not on file. Observed Vitals: BP 99/65 (BP Location: Right Arm, BP Cuff Size: Regular) Pulse 93 Wt 177 lb (80.3 kg) BMI 29.67 kg/m?? Nursing note and vitals reviewed. Constitutional: Oriented [...] Normal mood and affect. Behavior is normal. Assessment/Plan 1. Encounter for Medicare annual wellness exam 2. Type 2 diabetes mellitus without complication, without long-term current use of insulin (HRC) Continue current medication. Follow up in1 month - semaglutide (OZEMPIC) 2 MG/3ML injection; Inject 0.5 mg subcutaneously once a week. Dispense: 3 mL; Refill: 3 - metFORMIN (GLUCOPHAGE) 500 MG tablet; Take 2 Tablets (1,000 mg) by mouth two times a day with meals. Week 3: 500 mg with breakfast and 1000 mg with evening meal, Week 4: 1000 mg with breakfast and evening meal Dispense: 360 Tablet; Refill: 3 - Hgb A1c; Future - Lipid Panel and Direct LDL(If Needed); Future 3. Essential hypertension (HRC) Stable today. - metoprolol succinate (TOPROL XL) 25 MG 24 hour release tablet; Take 1 Tablet (25 mg) by mouth daily. Dispense: 90 Tablet; Refill: 3 - valsartan/hydrochlorothiazide (DIOVAN-HCT) 80-12.5 MG tablet; Take 1 Tablet by mouth daily. Dispense: 90 Tablet; Refill: 3 4. Mixed hyperlipidemia (HRC) 5. Class 1 obesity with serious comorbidity in adult, unspecified BMI, unspecified obesity type (HRC) - semaglutide (OZEMPIC) 2 MG/3ML injection; Inject 0.5 mg subcutaneously once a week. Dispense: 3 mL; Refill: 3 6. Chronic migraine without aura without status migrainosus, not intractable Counseling and education provided today includes proper nutrition and health habits, fall prevention, and for those items ordered above. See plan for future preventive services in Patient Instructions. Shima Higuera DO 09/01/2023, 10:26 AM ENT CREATION MANAGER documented in this encounter Plan of Treatment Upcoming Encounters Date Type Department Care Team Description 10/08/2023 9:40 AM CONTENT CREATION MANAGER [facility]ointment [facility] [address] [place] [address] [facility] [address] [address] 03/15/2024 10:45 AM CDT Appointment [facility] [address] [place] [address] Yumiko Hyatt MD [address] [place], [place] [address] Scheduled Orders Name Type Priority Associated Diagnoses Orde r Schedule Hgb A1c Lab Routine Type 2 diabetes mellitus without complication, without long-term current use of insulin (HRC) Expected: 02/28/2024, Expires: 03/29/2024 Lipid Panel and Direct LDL(If Needed) Lab Routine Type 2 diabetes mellitus without complication, without long-term current use of insulin (HRC) Expected: 02/28/2024, Expires: 03/29/2024 documented as of this encounter Visit Diagnoses Diagnosis Encounter for Medicare annual wellness exam- Primary Type 2 diabetes mellitus without complication, without long-term current use of insulin (HRC) Essential hypertension (HRC) Unspecified essential hypertension Mixed hyperlipidemia (HRC) Mixed hyperlipidemia Class 1 obesity with serious comorbidity in adult, unspecified BMI, unspecified obesity type (HRC) Chronic migraine without aura without status migrainosus, not intractable Chronic migraine without aura, without mention of intractable migraine without mention of status migrainosus documented in this encounter Care Teams Fabrication Machine Operator Relationship Specialty Start Date End Date Shima Higuera DO [address] [place] [address] PCP - General Family Practice 01/31/18 documented as of this encounter
--- OUTSIDE RECORDS SUMMARY | 2023-10-05 13:33 | XMS_ITS | Encounter Summary ---
Author Name Unknown Organization [facility] Address [address] [place] [address] Care Team Providers Care Professor Of Theatre Name Role Phone Shima Higuera Primary Care Provider [phone] Encounter Details Date Type Department Care Team Description 03/22/2023 5:40 PM CDT Lab Visit [facility] [address] [place], [place] [address] Paresthesia Social History Tobacco Use Types Packs/Day [...] Department Care Team Description 10/08/2023 9:40 AM ENERGY EFFICIENCY ENGINEER Appointment [facility] [address] [place] [address] Hemant Fallon, [facility] [address] [place], [place] [address] 03/15/2024 10:45 AM CDT Appointment [facility] [address] [place], [place] [phone] Yumiko Hyatt MD [address] [place] [address] documented as of this encounter Procedures Procedure Name Priority Date/Time Associated Diagnosis Comments TSH, SENSITIVE Routine 03/22/2023 2:59 PM CDT Paresthesia FOLATE ONLY (4HR FAST RECOMMENDED) Routine 03/22/2023 2:59 PM CDT Paresthesia VITAMIN B12 ONLY Routine 03/22/2023 2:59 PM CDT Paresthesia documented in this encounter Results * TSH (03/22/2023 2:59 PM CDT) Pathologist [facility] TSH, Sensitive 0.77 0.30 - 4.50 uIU/mL 03/22/2023 10:23 PM CDT [facility] Blood Venipuncture / Unknown 03/22/2023 2:59 PM CDT 03/22/2023 2:59 PM CDT Luisa Dixon APRN, CNP LAB_1 Performing Organization Address [facility] de Phone Number [facility] [address] [place] [address] * Folate Only (4Hr Fast Recommended) (03/22/2023 2:59 PM CDT) Pathologist [facility] Folate 19.0 >=7.0 ng/mL 03/22/2023 10:18 PM CDT [facility] Blood Venipuncture / Unknown 03/22/2023 2:59 PM CDT 03/22/2023 2:59 PM CDT Luisa Dixon APRN, CNP LAB_1 Performing Organization Address City/[facility]/ZIP Co de Phone Number [facility] [address] [place] [address] * (ABNORMAL) Vitamin B12 Only (03/22/2023 2:59 PM CDT) Vitamin B12 >2,000(H) 213 - 816 pg/mL 03/22/2023 10:23 PM CDT [facility] Blood Venipuncture / Unknown 03/22/2023 2:59 PM CDT 03/22/2023 2:59 PM CDT Luisa M Zack RIGGING HELPER, OVEN DRIER TENDER LAB_1 Performing Organization Address City/State/[facility] Co de Phone Number [facility] [address] documented in this encounter Visit Diagnoses Diagnosis Paresthesia Disturbance of skin sensation documented in this encounter Care Teams Professor Of Theatre Relationship Specialty Start Date End Date Shima Higuera DO [address] [place] [address] PCP - General Family Practice 01/31/18 documented as of this encounter
--- OUTSIDE RECORDS SUMMARY | 2023-10-05 13:34 | XMS_ITS | Encounter Summary ---
Author Name Unknown Organization [facility] Address [address] [place] [address] Care Team Providers Care Load Test Mechanic Name Role Phone Shima Higuera Primary Care Provider [phone] Encounter Details Date Type Department Care Team Description 09/25/1998 Orders Only Lilian Lara Social History Tobacco Use Types Packs/Day Years Used Date Smoking Tobacco: Never Assessed Sex and Gender Information Value Date Recorded Sex Assigned at Not on file Gender Identity Not on file Sexual Orientation Not on file documented as of this encounter Plan of Treatment Upcoming Encounters Date Type Department Care Team Description 10/08/2023 9:40 AM CORRECTIONS NURSE Appointment [facility] [address] [place], [place] [address] Hemant Fallon, [facility] [address] [place], [place] [address] 03/15/2024 10:45 AM CDT Appointment [facility] [address] [place] [address] Yumiko Hyatt MD [address] [place], [place] [address] documented as of this encounter Visit Diagnoses Not on filedocumented in this encounter Additional Health Concerns Infection Onset Date Last Indicated Resolved Time R/O COVID19 10/17/2020 10/17/2020 10/18/2020 2:55 AM CORRECTIONS NURSE R/O COVID19 05/21/2021 05/21/2021 05/22/2021 12:3 0 PM CDT documented as of this encounter Care Teams Load Test Mechanic Relationship Specialty Start Date End Date Shima Higuera DO [address] [place] [address] PCP - General Family Practice 01/31/18 documented as of this encounter
--- OUTSIDE RECORDS SUMMARY | 2023-10-05 13:34 | XMS_ITS | Encounter Summary ---
Author Name Unknown Organization [facility] Address [address] [place] [address] Care Team Providers Care Mason Liner Name Role Phone Shima Higuera Padmini DEAN Primary Care Provider [phone] Reason for Visit * Reason Comments EDEMA Both feet Medicare Annual Wellness Encounter Details Date Type Department Care Team Description 11/13/2022 2:00 PM CDT Office Visit [facility] [address] [facility] [place] [address] Citlali Patton, BUSINESS SERVICES CLERK, SOCIAL MEDIA SPECIALIST [address] [place] [address] Encounter for Medicare annual wellness exam (Primary Dx); Lower extremity edema; Essential hypertension; Type 2 diabetes mellitus without complication, without [...] Sign Reading Time Taken Comments Blood Pressure 127/82 11/13/2022 1:59 PM CDT Pulse 92 11/13/2022 1:59 PM CDT Temperature - - Respiratory Rate - - Oxygen Saturation - - Inhaled Oxygen Concentration - - Weight 94.6 kg (208 lb 8 oz) 11/13/2022 1:59 PM CDT Height 165.1 cm (5' 5) 11/13/2022 1:59 PM CDT Body Mass Index 34.7 11/13/2022 1:59 PM CDT documented in this encounter Patient Instructions * Patient Instructions* Citlali Patton - 11/13/2022 2:00 PM CDT Annual Wellness Visit Summary Your care team is recommending the following tests, procedures or services. Some of these recommendations may not be fully covered by Medicare or your insurance. If you have questions, check with your insurance to determine coverage before completing these services. Health Maintenance Due Health Maintenance Due Topic Date Due ??? COVID-19 Vaccine (5 - Booster for Moderna series) 06/02/2022 ??? FIT Colon Cancer Screening 06/23/2022 ??? Diabetes: HGBA1C 11/09/2022 If your Medicare Welcome or Annual Wellness Visit is showing you are due in the above list, this will be updated after this visit. You had this completed today and are not due for another year. documented in this encounter Progress Notes * Citlali Patton - 11/13/2022 2:00 PM CDT Medicare Annual Wellness Visit Subjective/Historical: Lidia Akhtar is a 72 y.o. old female Chief Complaint Patient presents with EDEMA Both feet Medicare Annual Wellness Current Concerns: Lower extremity edema. Ran out of lasix 20-40 mg PRN daily and has noticed some fluid in her feet. No fluid past her feet. No calf pain. Energy is normal. No chest pain or shortness of breath. No wheezing. This has happened in the past. She sometimes does use compression stockings. Weight is stableat 208 lb the past 3 months. Remains on valsartan-hydrochlorothiazide, metoprolol XL 25 mg daily. History of controlled type 2 DM, hypertension, sinus tachycardia. No history of CHF. Advance Directives: No advance directives are on file. Plan future discussion of advance directives. Observed Vitals: BP 127/82 (BP Location: Right Arm, BP Cuff Size: Large) Pulse 92 Ht 5' 5 (1.651 m) Wt 208 lb 8 oz (94.6 kg) BMI 34.70 kg/m?? Physical Exam: General Appearance: alert, well appearing, and in no apparent distress Neck: no lymphadenopathy and no thyromegaly or nodules Heart: regular rate and rhythm and no murmurs, gallops or rubs Lungs: clear to ausculation and no wheezes, rales or rhonchi Extremities: 1-2+ edema in feet Neurologic: normal speech and no facial droop Lab Results Component Value Date Creatinine 0.84 08/11/2022 Glucose 249 (H) 10/28/2021 Bedside Blood Glucose Test 141 11/15/2018 CO2 32 (H) 08/11/2022 Chloride 102 08/11/2022 Potassium 4.7 08/11/2022 Sodium 141 08/11/2022 BUN 16 06/18/2021 Calcium 9.5 06/18/2021 GFR, Estimated >60 08/11/2022 Lab Results Component Value Date Hemoglobin A1C 6.8 (H) 08/11/2022 Hemoglobin A1C (Rapid) 10.6 (H) 10/28/2021 Assessment/Plan Encounter for Medicare annual wellness exam Lower extremity edema - furosemide (LASIX) 20 MG tablet; Take 1 Tablet (20 mg) by mouth daily as needed. For leg swelling. Essential hypertension (HRC) Type 2 diabetes mellitus without complication, without long-term current use of insulin (HRC) Rx refilled for lasix as prescribed. Her exam is very normal and she has no symptoms of fluid overload. She will let me know if the fluid in the feet does not improve with adding back the lasix. Discussed DM follow up is due in January with PCP. Counseling and education provided today includes proper nutrition and health habits, fall prevention, and for those items ordered above. See plan for future preventive services in Patient Instructions. Citlali Patton APRN, SOCIAL MEDIA SPECIALIST 11/14/2022, 7:58 AM documented in this encounter Plan of Treatment Upcoming Encounters Date Type Department Care Team Description 10/08/2023 9:40 AM VEGETABLE PACKER Appointment [address] [place] [address] Hemant Fallon, [facility] [address] [place] [address] 03/15/2024 10:45 AM CDT Appointment [facility] [address] [place], [place] [address] Yumiko Hyatt MD [address] [place] [address] documented as of this encounter Visit Diagnoses Diagnosis Encounter for Medicare annual wellness exam- Primary Lower extremity edema Edema Essential hypertension (HRC) Unspecified essential hypertension Type 2 diabetes mellitus without complication, without long-term current use of insulin (HRC) documented in this encounter Care Teams Mason Liner Relationship Specialty Start Date End Date Shima Higuera DO [address] [place] [address] PCP - General Family Practice 01/31/18 documented as of this encounter
--- OUTSIDE RECORDS SUMMARY | 2023-10-05 13:34 | XMS_ITS | Encounter Summary ---
Author Name Unknown Organization [facility] Address [address] [address] Care Team Providers Care Motor Coach Driver Name Role Phone Shima Higuera DO Primary Care Provider [phone] Reason for Referral * Consult/Transfer Care (Routine) - New Request Specialty Diagnoses / Procedures Referred By Roxi castillo Referred To Contact Diagnoses Type 2 diabetes mellitus without complication, without long-term current use of insulin (HRC) Shima Higuera DO [address] [place] [address] Referral ID Status Reason Start Date Expiration Date V isits Requested Visits Authorized [id number] New Request 02/10/2023 05/11/2024 1 1 Scheduling Instructions Your clinician has recommended an appointment with [facility]. You may call [phone] to schedule your appointment. We suggest you call your health insurance company about your coverage and benefits for this appointment. Question Answer Appointment Urgency? Non-Urgent Reason for visit Previously Dx or Annual Follow Up (up to 2 hrs): Group Ed as appropriate Education / Management Needs (Additional hours may be needed) Clinician to Choose Medication, Educator to Initiate and Adjust per Standing Order; DM Education Medication Start, Clinician to Choose GLP-1 Start (Injectable) Individual Participation Barriers (To Small Group Ed)? None Certification statement I certify that I am managing this patient? s condition and education Plan of Care Diabetes self-management training includes: healthy eating, physical activity, monitoring, medications, reducing risks, problem-solving, healthy coping. Changes to plan should be documented in comment box. Additional details found in standing order. Individuals may be eligible for both DSMT and MNT services in the same year. I approve the delivery of initial MNT (3hrs) and/or annual follow-up MNT (2hrs). Yes Comments Other Barriers or Additional Comments: Last 2 A1c Performed in lab: HGB A1C (%) Date Value 02/16/2011 5.6 Hemoglobin A1C (%) Date Value 08/11/2022 6.8 (H) 01/29/2022 7.5 (H) Last 2 Point of Care A1c: Hemoglobin A1C (Rapid) (%) Date Value 10/28/2021 10.6 (H) Reason for Visit * Reason Comments Follow-up Diabetes Encounter Details Date Type Department Care Team Description 02/10/2023 10:40 AM CDT [facility] [address] [place], [place] [address] Shima Higuera, [address] [place], [place] [address] Type 2 diabetes mellitus without complication, without long-term current use of insulin (HRC) (Primary Dx); Encounter for screening mammogram for malignant neoplasm of breast; Screen for colon cancer Social History Tobacco [...] Sign Reading Time Taken Comments Blood Pressure 121/74 02/10/2023 10:17 AM CDT Pulse 79 02/10/2023 10:17 AM CDT Temperature - - Respiratory Rate - - Oxygen Saturation - - Inhaled Oxygen Concentration - - Weight 93 kg (205 lb) 02/10/2023 10:17 AM CDT Height 164.5 cm (5' 4.76) 02/10/2023 10:17 AM C DT Body Mass Index 34.36 02/10/2023 10:17 AM CDT documented in this encounter Progress Notes * Shima Higuera, DO - 02/10/2023 10:40 AM CDT Lidia Alvin Akhtar is here today for diabetes check. Last A1C- Results for orders placed or performed in visit on 02/10/23 Hgb A1c TEST NAME: YOUR RESULT: NORMAL-RANGE Hemoglobin A1C 7.3 (H) <=5.6 % Estimated Average Glucose (Calc) 163 < 117 mg/dL Heart Health: As recommended by the [place] [employer], we use information about your health to estimate your risk for a heart attack or stroke. Your risk in the next 10 years is 21%. The information we used to estimate your risk is: Your age 72, sex, blood pressure of 121/74 mm Hg, use of blood pressure lowering medication, total cholesterol of 135 mg/dl, HDL (good cholesterol) of 41 mg/dl, diagnosis of diabetes, no tobacco or nicotine use. You can improve your heart health by doing the following in order of priority: For information on self-directed lifestyle change for weight management, go to www.myhealthwizard.org Keep your glucose level in your target range and lower your A1C. You can do this by eating a healthy diet, staying physically active and taking medications as recommended by your care team. Current diabetic medications include: oral agents/insulin: metformin Eye exam current (within one year): yes Weight trend:stable Prior visit with television program director/Care coordination: yes Current diet: tries to watch ehr carbs Current exercise: walks Lipids- Currently on a statin HTN- tolerating her meds. Home readings ok. Reviewed patient Past medical history, medications, allergies and Social/Family history. Updated inEpic. Pertinent ROS as above. Objective: BP 121/74 (BP Location: Right Arm, BP Cuff Size: Large) Pulse 79 Ht 5' 4.76 (1.645 m) Wt 205lb (93 kg) BMI 34.36 kg/m?? Physical Exam Nursing note and vitals [...] no open lesions, normal cap refill, toenails normal, callouses little, normal monofilament testing Assessment/Plan: 1. Type 2 diabetes mellitus without complication, without long-term current use of insulin (HRC) Will try adding ozempic to help with BS and glucose. DIscussed use and side effects. Follow up in 3months. - semaglutide (OZEMPIC) 2 MG/3ML injection; Inject 0.25 mg subcutaneously once a week. Dispense: 3 mL; Refill: 2 - Diabetes Education and MNT - Hgb A1c; Future - Electrolyte Panel; Future - Creatinine / GFR; Future - Hgb A1C; Future 2. Encounter for screening mammogram for malignant neoplasm of breast - MM Mammogram Screening Bilat W 3D Jose W CAD; Future 3. Screen for colon cancer - FIT Colon Rectal Cancer Screening; Future Shima Higuera DO documented in this encounter Plan of Treatment Upcoming Encounters Date Type Department Care Team Description 10/08/2023 9:40 AM DOZER OPERATOR [facility] [address] [place] [address] Hemant Fallon, [facility] [address] [address] 03/15/2024 10:45 AM CDT Appointment [facility] [address] [place], [place] [address] Yumiko Hyatt MD [address] [place] [address] Scheduled Referrals Name Type Priority Associated Diagnoses Orde r Schedule Diabetes Education and MNT Referral Routine Type 2 diabetes mellitus without complication, without long-term current use of insulin (HRC) Ordered: 02/10/2023 documented as of this encounter Results * Creatinine / GFR (08/30/2023 10:01 AM [facility]) Creatinine 0.71 0.55 - 1.02 mg/dL 08/30/2023 3:10 PM [facility] GFR, Estimated >60 >60 mL/min/1.7 3m2 08/30/2023 3:10 PM [facility] Blood Venipuncture / Unknown 08/30/2023 10:01 AM DOZER OPERATOR 08/30/2023 10:01 AM [facility] Shima Higuera DO LAB_1 Performing Organization Address [facility] de Phone Number [facility] [address] [place] [address] [phone] * Electrolyte Panel (08/30/2023 10:01 AM [facility]) Sodium 142 136 - 145 mmol/L 08/30/2023 3:10 PM [facility] Potassium 4.1 3.5 - 5.1 mmol/L 08/30/2023 3:10 PM [facility] Chloride 104 98 - 109 mmol/L 08/30/2023 3:10 PM [facility] CO2 26 20 - 29 mmol/L 08/30/2023 3:10 PM [facility] Anion Gap 12 7 - 16 mmol/L 08/30/2023 3:10 PM [facility] Blood Venipuncture / Unknown 08/30/2023 10:01 AM DOZER OPERATOR 08/30/2023 10:01 AM [facility] Shima Higuera DO LAB_1 Performing Organization Address [facility] Co de Phone Number [facility] [address] [place] [address], [facility] [phone] * (ABNORMAL) Hgb A1c (08/30/2023 10:01 AM DOZER OPERATOR) Hemoglobin A1C 6.0(H) <=5.6 % 08/30/2023 6:05 PM [facility] Estimated Average Glucose (Calc) 126 < 117 mg/dL 08/30/2023 6:05 PM [facility] Comment:Estimated average gl ucose (eAG) converts A1c into glucose units (mg/dL) and estimates average glucose over the past approximately 3 months. The eAG reference interval (<117 mg/dL) corresponds to an A1c of <5.7%. Blood Venipuncture / Unknown 08/30/2023 10:01 AM DOZER OPERATOR 08/30/2023 10:01 AM [facility] Narrative [facility] - 08/30/2023 6:05 PM DOZER OPERATOR For patients not previously diagnosed with diabetes: 5.7-6.4%: Increased risk for diabetes 6.5% and greater: Diagnostic for diabetes For patients diagnosed with diabetes: <8.0%: Goal of therapy for ages 18-75 Clinicians may recommend a higher or lower goal for specific individuals. Shima Higuera DO LAB_1 [facility] [address] [address], [facility] [phone] * (ABNORMAL) Hgb A1C (05/10/2023 10:06 AM CDT) Hemoglobin A1C 6.1(H) <=5.6 % 05/10/2023 5:16 PM T [facility] Estimated Average Glucose (Calc) 128 < 117 mg/dL 05/10/2023 5:16 PM [facility] Comment:Estimated average gl ucose (eAG) converts A1c into glucose units (mg/dL) and estimates average glucose over the past approximately 3 months. The eAG reference interval (<117 mg/dL) corresponds to an A1c of <5.7%. Blood Venipuncture / Unknown 05/10/2023 10:06 AM CDT 05/10/2023 10:06 AM CDT [facility] - 05/10/2023 5:16 PM CDT For patients not previously diagnosed with diabetes: 5.7-6.4%: Increased risk for diabetes 6.5% and greater: Diagnostic for diabetes For patients diagnosed with diabetes: <8.0%: Goal of therapy for ages 18-75 Clinicians may recommend a higher or lower goal for specific individuals. Shima Higuera DO LAB_1 Performing Organization Address [facility] Co de Phone Number [facility] [address] [phone] * FIT Colon Rectal Cancer Screening (03/01/2023 8:00 AM CDT) FIT Specimen 1 Negative Negative 03/02/2023 2:22 AM CDT [facility] Stool 03/01/2023 8:00 AM CDT 03/01/2023 5:37 PM CDT Shima Higuera DO LAB_1 Performing Organization Address [facility] Co de Phone Number [facility] [address] [phone] documented in this encounter Visit Diagnoses Diagnosis Type 2 diabetes mellitus without complication, without long-term current use of insulin (HRC)- Primary Encounter for screening mammogram for malignant neoplasm of breast Other screening mammogram Screen for colon cancer Special screening for malignant neoplasms, colon documented in this encounter Care Teams Motor Coach Driver Relationship Specialty Start Date End Date Shima Higuera DO [address] [place] [address] PCP - General Family Practice 01/31/18 documented as of this encounter
--- OUTSIDE RECORDS SUMMARY | 2023-10-05 13:34 | XMS_ITS | Encounter Summary ---
Author Name Unknown Organization [facility] Address [address] [place] [address] Care Team Providers Care Biblical Languages Professor Name Role Phone Shima Higuera DO Primary Care Provider [phone] Reason for Visit * Reason Comments EDEMA Encounter Details Date Type Department Care Team Description 11/11/2022 [facility] [address] [place], [place] [id number] Shima Higuera DO [address] [place] [address] EDEMA Social History Tobacco Use Types Packs/Day Years Used Date Smoking Tobacco: Never Smokeless Tobacco: Never Alcohol Use Standard Drinks/Week Comments No 0 (1 standard drink = 0.6 oz pur e alcohol) PHQ-2 Answer Date Recorded PHQ-2 Score 0 10/28/2021 Sex and Gender Information Value Date Recorded Sex Assigned at Not on file Gender Identity Not on file Sexual Orientation Not on file documented as of this encounter Nursing Notes * Starr Shea RN - 11/11/2022 7:55 PM CDT Spoke to patient. Has swelling in her feet for the past 2 weeks. Her feet are feeling tight and sheis wearing larger shoes. Swelling does not extend past her feet into her ankles. Has had this in the past but has been awhile. Notes it does not look like her skin is infected. OV scheduled for 11-12-22 and she denies any other concerns. Denies chest pain, shortness pf breath, leg or calf symptoms. Problem list reviewed as related to this call. Reason for Disposition [1] MILD swelling of both ankles (i.e., pedal edema) AND [2] new-onset or worsening Protocols used: Leg Swelling and [id number]-BL * Deepika Bassett - 11/11/2022 5:39 PM CDT Symptoms Describe your symptoms (if pain, include location): Pt requests work in appt this week in clinic any provider OK. Pt states she has been having swelling on her feet x 2 weeks and it is not going away. Pt states there are no appts in any nearby clinics. Please assist. When did they start? About 2 weeks ago getting worse. Additional comments (related to the above concern): If a prescription is needed, patient would like it filled at the pharmacy listed in Medication Management. Is it okay to leave a detailed message on your voicemail? Yes Is there anything else I can help you with today? No documented in this encounter Plan of Treatment Upcoming Encounters Date Type Department Care Team Description 10/08/2023 9:40 AM DAIRY FROZEN MANAGER Appointment [facility] [address] [place], [place] [address] Hemant Fallon, [facility] [address] [place], [place] [address] 03/15/2024 10:45 AM CDT Appointment [facility] [address] [place], [place] [id number] Yumiko Hyatt MD [address] [place], [place] [id number] documented as of this encounter Visit Diagnoses Not on filedocumented in this encounter Care Teams Biblical Languages Professor Relationship Specialty Start Date End Date Shima Higuera DO [address] [place] [address] PCP - General Family Practice 01/31/18 documented as of this encounter
--- OUTSIDE RECORDS SUMMARY | 2023-10-05 13:34 | XMS_ITS | Encounter Summary ---
Author Name Unknown Organization [facility] Address [address] [place] [address] Care Team Providers Care Investment Trader Name Role Phone Shmia Higuera Primary Care Provider Encounter Details Date Type Department Care Team Description 09/20/1998 Orders Only Lilian Lara Social History Tobacco Use Types Packs/Day Years Used Date Smoking Tobacco: Never Assessed Sex and Gender Information Value Date Recorded Sex Assigned at Not on file Gender Identity Not on file Sexual Orientation Not on file documented as of this encounter Plan of Treatment Upcoming Encounters Date Type Department Care Team Description 10/08/2023 9:40 AM WHEAT INSPECTOR Appointment [facility] Medicine [address] [place], [place] [address] Hemant Fallon, [facility] [address] [place], [place] [address] 03/15/2024 10:45 AM CDT Appointment [facility] [address] [place] [address] Yumiko Hyatt MD [address] [place], [place] [address] documented as of this encounter Visit Diagnoses Not on filedocumented in this encounter Additional Health Concerns Infection Onset Date Last Indicated Resolved Time R/O COVID19 10/17/2020 10/17/2020 10/18/2020 2:55 AM WHEAT INSPECTOR R/O COVID19 05/21/2021 05/21/2021 05/22/2021 12:3 0 PM CDT documented as of this encounter Care Teams Investment Trader Relationship Specialty Start Date End Date Shima Higuera DO [address] [place] [address] PCP - General Family Practice 01/31/18 documented as of this encounter
--- OUTSIDE RECORDS SUMMARY | 2023-10-05 13:34 | XMS_ITS | Encounter Summary ---
Author Name Unknown Organization [facility] Address [address] [place] [address] Care Team Providers Care Manager Of Allied Health Services Name Role Phone Shima Higuera Padmini DEAN Primary Care Provider [phone] Encounter Details Date Type Department Care Team Description 02/10/2023 10:00 AM CDT Lab Visit [facility] [address] [place], [place] [address] Type 2 diabetes mellitus without complication, without [...] Department Care Team Description 10/08/2023 9:40 AM LARRIMAN Appointment [facility] [address] [place], [place] [address] Hemant Fallon, [facility] [address] [place] [address] 03/15/2024 10:45 AM CDT Appointment [facility] [address] [place] [address] Yumiko Hyatt MD [address] [place] [address] documented as of this encounter Procedures Procedure Name Priority Date/Time Associated Diagnosis Comments LIPID PANEL & DIRECT LDL (IF NEEDED) Routine 02/10/2023 10:11 AM CDT Type 2 diabetes mellitus without complication, without long-term current use of insulin (HRC) CREATININE / GFR Routine 02/10/2023 10:1 1 AM CDT Type 2 diabetes mellitus without complication, without long-term current use of insulin (HRC) ELECTROLYTE PANEL Routine 02/10/2023 10: 11 AM CDT Type 2 diabetes mellitus without complication, without long-term current use of insulin (HRC) HGB A1C Routine 02/10/2023 10:11 AM CDT Type 2 diabetes mellitus without complication, without long-term current use of insulin (HRC) documented in this encounter Results * Creatinine / GFR (02/10/2023 10:11 AM CDT) Creatinine 0.90 0.55 - 1.02 mg/dL 02/10/2023 12:16 PM CDT [facility] GFR, Estimated >60 >60 mL/min/1.7 3m2 02/10/2023 12:16 PM CDT [facility] Blood Venipuncture / Unknown 02/10/2023 10:11 AM CDT 02/10/2023 10:11 AM CDT Shima Higuera DO LAB_1 [facility] [address] [place] [address], [facility] [phone] * Electrolyte Panel (02/10/2023 10:11 AM CDT) Sodium 142 136 - 145 mmol/L 02/10/2023 12:16 PM [facility] Potassium 4.0 3.5 - 5.1 mmol/L 02/10/2023 12:16 PM [facility] Chloride 102 98 - 109 mmol/L 02/10/2023 12:16 PM [facility] CO2 28 20 - 29 mmol/L 02/10/2023 12:16 PM [facility] Anion Gap 12 7 - 16 mmol/L 02/10/2023 12:16 PM [facility] Blood Venipuncture / Unknown 02/10/2023 10:11 AM CDT 02/10/2023 10:11 AM CDT Shima Higuera DO LAB_1 Performing Organization Address [facility]/ZIP Co de Phone Number [facility] [address] [place] [address], [place] [phone] * Lipid Panel and Direct LDL(If Needed) (02/10/2023 10:11 AM CDT) [facility] Cholesterol 135 0 - 199 mg/dL 02/10/2023 12:16 PM [facility] Triglyceride 125 <=149 mg/dL 02/10/2023 12:16 PM [facility] HDL Cholesterol 41 >=40 mg/dL 02/10/2023 12:16 PM [facility] LDL, Calculated 69 <130 mg/dL 02/10/2023 12:16 PM [facility] Non HDL Chol, Calculated 94 <=159 mg/dL 02/10/2023 12:16 PM [facility] Cholesterol/HDL Ratio 3.3 02/10/2023 12:16 PM [facility] Hours Fasting Unknown 02/10/2023 12:16 PM [facility] Blood Venipuncture / Unknown 02/10/2023 10:11 AM CDT 02/10/2023 10:11 AM CDT Shima Higuera DO LAB_1 Performing Organization Address City/[facility]/ZIP Co de Phone Number [facility] [address] [place] [address], [place] [phone] [facility] [address] [place] [address], [facility] [phone] * (ABNORMAL) Hgb A1c (02/10/2023 10:11 AM CDT) Hemoglobin A1C 7.3(H) <=5.6 % 02/10/2023 5:[address] [facility] Estimated Average Glucose (Calc) 163 < 117 mg/dL 02/10/2023 5:[address] [facility] Comment:Estimated average gl ucose (eAG) converts A1c into glucose units (mg/dL) and estimates average glucose over the past approximately 3 months. The eAG reference interval (<117 mg/dL) corresponds to an A1c of <5.7%. Blood Venipuncture / Unknown 02/10/2023 10:11 AM CDT 02/10/2023 10:11 AM CDT Narrative [facility] - 02/10/2023 5:03 PM CDT For patients not previously diagnosed with diabetes: 5.7-6.4%: Increased risk for diabetes 6.5% and greater: Diagnostic for diabetes For patients diagnosed with diabetes: <8.0%: Goal of therapy for ages 18-75 Clinicians may recommend a higher or lower goal for specific individuals. Shima Higuera DO LAB_[address] [facility] [address] [address], [facility] [phone] documented in this encounter Visit Diagnoses Diagnosis Type 2 diabetes mellitus without complication, without long-term current use of insulin (HRC) documented in this encounter Care Teams Manager Of Allied Health Services Relationship Specialty Start Date End Date Shima Higuera DO [address] [place] [address] PCP - General Family Practice 01/31/18 documented as of this encounter
[2023-10-05 13:44] LABS: Chloride* 102 mmol/L (96-114)
[2023-10-05 13:45] LABS: Potassium* 3.9 mmol/L (3.6-5.1); Sodium* 137 mmol/L (135-149)
[2023-10-05 13:47] LABS: Alkaline Phosphatase* 52 U/L (40-150); Anion Gap 12 mEq/L (7-15); Aspartate Amino Transferase* 29 U/L (12-35); Bilirubin Total* 0.6 mg/dL (0.1-1.5); Carbon Dioxide* 23 mmol/L (20-32); Creatinine* 0.7 mg/dL (0.5-1.5); Estimated Glomerular Filt Rate 92 ml/min; Total Protein* 6.7 g/dL (6.0-8.3)
[2023-10-05 13:48] LABS: Alanine Aminotransferase* 22 U/L (4-35); Blood Urea Nitrogen* 22 mg/dL (7-30); Calcium* 9.2 mg/dL (8.4-10.6); Glucose* 84 mg/dL (60-115)
[2023-10-05 13:56] LABS: NT Pro B Type NatriureticPept* 83 pg/mL
--- NOTE | 2023-10-05 13:58 | CT_ITS ---
Final Report Patient: AMARA MORRELL Facility:?[facility] Patient ID:?[id number] Site Patient ID:?[id number]. Site :?[id number] Study:?CT Chest PEW/ISOVUE 370 95CC-10/05/2023 4:26:06 PM Ordering Physician:MIRNA Final Report: INDICATION: Shortness of breath. TECHNIQUE: Multiplanar CT angiogram of the chest was performed after the administration of 100 mL of Omnipaque 350 intravenous contrast. COMPARISON: None. FINDINGS: Motion degraded examination, limiting evaluation for distal segmental and subsegmental branch emboli. Lower neck: The visualized thyroid is unremarkable. Cardiovascular: Contrast opacification of the pulmonary arterial tree is adequate. Heart size is normal. Thoracic aorta and pulmonary artery are normal in caliber. Mild atherosclerotic calcifications of the aortic arch. Coronary arterial calcifications. Mediastinum and lymph nodes: Unremarkable. No pathologic mediastinal or hilar lymphadenopathy by size criteria. Lungs: No focal consolidation. Linear bandlike opacifications in the lung bases, likely subsegmental atelectasis and/or scarring. Dependent atelectasis. There is a mosaic attenuation pattern of opacification diffusely, nonspecific finding but can be seen with air trapping, edema or atypical infection. No suspicious pulmonary masses. Pleura: No pleural effusions or pneumothorax Chest wall: Unremarkable. No axillary lymphadenopathy. Bones: Diffuse osteopenia limits evaluation. Xvje-rj-encnevyj degenerative changes of the thoracic spine. No acute osseous abnormalities. No suspicious lytic or blastic lesions. Upper abdomen: Please refer to separately dictated report on the concurrent CT examination of the abdomen and pelvis for full discussion. No reflux of contrast material into the IVC. IMPRESSION: 1. No pulmonary embolus. No CT evidence of right heart strain. 2. No acute intrathoracic pathology. No suspicious pulmonary masses identified 3. Coronary arterial calcifications. Correlation with ASCVD evaluation is advised. Please note that all CT scans at this facility use dose modulation, iterative reconstruction, and/or weight-based dosing when appropriate to reduce radiation dose to as low as reasonably achievable. Dictated by Lazarus Gill MD @ 10/05/2023 10:55:46 PM (Electronic Signature)
[2023-10-05] MEDS: LACTATED RINGERS 1000 ML 1,000 ML IV ×2 (13:59→16:28)
--- NOTE | 2023-10-05 13:59 | CT_ITS ---
Final Report Patient: AMARA MORRELL Facility:?[facility] Patient ID:?[id number] Site Patient ID:?[id number] Site :?[id number] Study:?CT Abdomen/Pelvis W/PE-10/05/2023 3:15:49 PM Ordering Physician:MIRNA Final Report: INDICATION: Shortness of breath, weight loss. Evaluate for malignancy. TECHNIQUE: Multiplanar CT examination of the abdomen and pelvis was performed after the administration of 95 mL Isovue 370 intravenous contrast. COMPARISON: None. FINDINGS: Lower chest: Please refer to separately dictated report on the concurrently performed CTA of the chest for full discussion. Liver: Unremarkable. No suspicious hepatic masses. Gallbladder: Unremarkable. Biliary: Unremarkable. Pancreas: Within normal limits. Spleen: Unremarkable. Adrenal glands: Mild nodular thickening of the left adrenal gland, possibly a small adrenal adenoma versus adrenal hyperplasia. The right adrenal gland is unremarkable. Genitourinary: Mild cortical scarring of the left kidney. Otherwise, the kidneys are normal in size and symmetrically enhancing. No obstructive uropathy. No hydronephrosis or obstructive urinary calculi. No suspicious renal masses. The ureters appear unremarkable. The bladder is within normal limits. Gastrointestinal: Postsurgical changes of a prior gastric bypass surgery. No bowel wall thickening or bowel obstruction. Normal appendix. No significant colonic diverticulosis. Severe colonic stool burden. Vasculature: No aortic aneurysm. The portal vein remains patent. Mild abdominal aortic atherosclerotic calcifications. Extensive splenic arterial calcifications Lymph nodes: No pathologic lymphadenopathy by size criteria. Prominent small bowel mesenteric lymph nodes, subcentimeter in size, nonspecific but likely reactive. Peritoneum: No free fluid or pneumoperitoneum. No drainable fluid collections. Abdominal wall/soft tissues: Unremarkable. Bones: Diffuse osteopenia limits evaluation. No acute osseous abnormalities. Dpmq-[id number] multilevel degenerative changes of the visualized thoracolumbar spine. Severe degenerative disc disease at L3-4 and L5-S1, grade 1 degenerative anterolisthesis of L4 on L5. no suspicious lytic or blastic lesions. IMPRESSION: 1. Postsurgical changes of a prior gastric bypass surgery. 2. No acute abdominopelvic pathology. Severe colonic stool burden, correlate for constipation. 3. Nodular thickening of the left adrenal gland, query underlying adrenal hyperplasia versus a small adrenal adenoma. If clinically warranted, consider further evaluation with a dedicated CT/MR adrenal mass protocol. Please note that all CT scans at this facility use dose modulation, iterative reconstruction, and/or weight-based dosing when appropriate to reduce radiation dose to as low as reasonably achievable. Dictated by Lazarus Gill MD @ 10/05/2023 10:32:28 PM (Electronic Signature)
[2023-10-05 14:00] LABS: Creatinine, Point-of-Care* 0.8 mg/dl (0.6-1.3)
[2023-10-05 16:00] LABS: Lactate* 2.3 mmol/L (0.5-1.9)
--- NOTE | 2023-10-06 12:49 | ED.NURSE ---
Left message for patient to call back regarding imaging results.
== END 2023-10-05 17:07 | disposition home or self-care (01) ==
PROVIDERS: Emergency Provider Student in an Organized Health Care Education/Training Program
DX: E86.0 Dehydration (principal)
CPT/HCPCS: 36415; 71275; 74177; 80053; 81001; 82565; 83605; 83880; 84484; 85025; 87040; 87631; 93005; 99283; 99284; J7120; Q9967

== ENCOUNTER 2025-04-08 02:04 | Outpatient (CLI) | payer MEDICARE, SELFPAY | END 2025-04-08 02:05 | disposition home or self-care (01) | LOC: AMB 04-10 13:16 | PROVIDERS: Visit Provider Family Medicine | DX: R29.810 Facial weakness (principal); R47.81 Slurred speech; R53.1 Weakness | CPT/HCPCS: A0425; A0429 ==

== ENCOUNTER 2025-04-08 02:41 | Inpatient (IN) | payer MEDICARE, SELFPAY ==
--- OUTSIDE RECORDS SUMMARY | 2025-02-26 08:20 | XMS_ITS | Encounter Summary ---
Author Organization [facility] Address [address] [place] [address] Care Team Providers Care Temperer Name Role Phone KalenShima arreola Padmini DEAN Primary Care Provider [phone] Encounter Details Date Type Department Care Team (Late st Contact Info) Description 02/26/2025 8:20 AM CDT Lab Visit [facility] [address]. [place], [place] [address] Type 2 diabetes mellitus without complication, without long-term current use of insulin (HRC) Social History Tobacco Use Types Packs/Day Years Used Date Smoking Tobacco: Never Passive Smoke Exposure: Never Smokeless Tobacco: Never Alcohol Use Standard Drinks/Week Comments No 0 (1 standard drink = 0.6 oz pur e alcohol) PHQ-2 Answer Date Recorded PHQ-2 Score 0 09/06/2024 Comments No Sex and Gender Information Value Date Recorded Sex Assigned at Not on file Legal Sex Female 4:27 AM CDT Gender Identity Not on file Sexual Orientation Not on file Occupation Industry Job Start Date Job End Date Retired Not on file Not on file Not on file documented as of this encounter Plan of Treatment Not on file documented as of this encounter Procedures Procedure Name Priority Date/Time Associated Diagnosis Comments CREATININE / GFR Routine 02/26/2025 8:16 AM CDT Type 2 diabetes mellitus without complication, without long-term current use of insulin (HRC) ELECTROLYTE PANEL Routine 02/26/2025 8:1 6 AM CDT Type 2 diabetes mellitus without complication, without long-term current use of insulin (HRC) HGB A1C Routine 02/26/2025 8:16 AM CDT Type 2 diabetes mellitus without complication, without long-term current use of insulin (HRC) documented in this encounter Results * Creatinine / GFR (02/26/2025 8:16 AM CDT) Creatinine 0.87 0.55 - 1.02 mg/dL 02/26/2025 2:31 PM CDT [facility] GFR, Estimated >60 >60 mL/min/1.7 3m2 02/26/2025 2:31 PM T [facility] Blood Venipuncture / Unknown 02/26/2025 8:16 AM CDT 02/26/2025 8:16 AM CDT Shima Higuera DO LAB_1 Final Result Performing Organization Address [facility] Phone Number [address] [phone] * Electrolyte Panel (02/26/2025 8:16 AM CDT) Sodium 142 136 - 145 mmol/L 02/26/2025 2:31 PM CDT [facility] Potassium 4.1 3.5 - 5.1 mmol/L 02/26/2025 2:31 PM T [facility] Chloride 105 98 - 109 mmol/L 02/26/2025 2:31 PM T [facility] CO2 24 20 - 29 mmol/L 02/26/2025 2:31 PM T [facility] Anion Gap 13 6 - 16 mmol/L 02/26/2025 2:31 PM T [facility] Blood Venipuncture / Unknown 02/26/2025 8:16 AM CDT 02/26/2025 8:16 AM CDT us Shima Higuera DO LAB_1 Final Result Performing Organization Address [facility] de Phone Number [facility] [address] [place] [address], [facility] * (ABNORMAL) Hgb A1c (02/26/2025 8:16 AM CDT) Hemoglobin A1C 6.3(H) <=5.6 % 02/26/2025 5:53 PM CDT [facility] Estimated Average Glucose (Calc) 134 < 117 mg/dL 02/26/2025 5:53 PM CDT [facility] Comment:Estimated average gl ucose (eAG) converts A1c into glucose units (mg/dL) and estimates average glucose over the past approximately 3 months. The eAG reference interval (<117 mg/dL) corresponds to an A1c of <5.7%. Blood Venipuncture / Unknown 02/26/2025 8:16 AM CDT 02/26/2025 8:16 AM CDT Narrative [facility] - 02/26/2025 5:53 PM CDT For patients not previously diagnosed with diabetes: 5.7-6.4%: Increased risk for diabetes 6.5% and greater: Diagnostic for diabetes For patients diagnosed with diabetes: <8.0%: Goal of therapy for ages 18-75 Clinicians may recommend a higher or lower goal for specific individuals. Shima Higuera DO LAB_1 Final Result [facility] [address] [address], [facility] documented in this encounter Visit Diagnoses Diagnosis Type 2 diabetes mellitus without complication, without long-term current use of insulin (HRC) documented in this encounter Care Teams Temperer Relationship Specialty Start Date End Date Shima Higuera DO [address] [place] [address] PCP - General Family Practice 01/31/18 documented as of this encounter
--- OUTSIDE RECORDS SUMMARY | 2025-02-28 09:40 | XMS_ITS | Encounter Summary ---
Author Organization [facility] Address [address], [place] [address] Care Team Providers Care Engineer Intern Name Role Phone Shima Higuera DO Primary Care Provider Reason for Visit * Reason Comments Diabetes Encounter Details Date Type Department Care Team (Late st Contact Info) Description 02/28/2025 9:40 AM CDT [facility] [address] [place], [place] [phone] Shima Higuera DO [address] [place], [place] [address] Type 2 diabetes mellitus without complication, without long-term current use of insulin (HRC) (Primary Dx); Onychomycosis; Essential hypertension (HRC); Paresthesia; Allergic rhinitis, unspecified seasonality, unspecified trigger; Chronic migraine without aura without status migrainosus, [...] Sign Reading Time Taken Comments Blood Pressure 126/57 02/28/2025 9:31 AM CDT Pulse 74 02/28/2025 9:31 AM CDT Temperature - - Respiratory Rate - - Oxygen Saturation - - Inhaled Oxygen Concentration - - Weight 87.2 kg (192 lb 3.2 oz) 02/28/2025 9:31 A M CDT Height - - Body Mass Index 32.23 05/11/2024 9:40 AM CDT documented in this encounter Progress Notes * Shima Higuera, - 02/28/2025 9:40 AM CDT Subjective: Chief Complaint Patient presents with Diabetes History of Present Illness Lidia Akhtar is a 74 year old female with diabetes who presents for a routine diabetes check. She is currently taking metformin for diabetes management. She has cracked big toes with onychomycosis. Epsom salt soaks have been ineffective, and she is antifungal cream with slow improvement. She recalls losing a toenail in the past, which has since regrown. She takes nortriptyline at bedtime for migraines and neuropathy, which also alleviates toe numbness. She uses gabapentin, prescribed by a headache specialist, but only takes one capsule in the morning instead of the prescribed three times a day. She uses Flonase as needed and requires a refill. Reviewed patient Past medical history, medications, allergies and Social/Family history. Updated inEpic. Objective: BP 126/57 (BP Location: Right Arm, BP Cuff Size: Large) Pulse 74 Wt 192 lb 3.2 oz (87.2 kg) BMI 32.23 kg/m?? Physical Exam Nursing note and vitals [...] no open lesions, normal cap refill, toenails thickened, cracking and some distal discoloration, Assessment & Plan 1. Type 2 diabetes mellitus without complication, without long-term current use of insulin (HRC) (Primary) Patients Diabetes is controlled Reviewed labs and reviewed/refilled meds Reviewed CV wizard with patient. Encouraged Lifestyle management as core to improvement in health- - Hgb A1c; Future - Albumin/Creatinine Ratio,Random Urine; Future - Lipid Panel and Direct LDL(If Needed); Future - Electrolyte Panel; Future - Creatinine / GFR; Future 2. Onychomycosis Continue with current soaking. 3. Essential hypertension (HRC) Stable. 4. Paresthesia Refill given. - nortriptyline (PAMELOR) 50 MG capsule; Take 3 Capsules (150 mg) by mouth daily at bedtime. Dispense: 270 Capsule; Refill: 3 5. Allergic rhinitis, unspecified seasonality, unspecified trigger - fluticasone propionate (FLONASE) 50 MCG/ACT nasal solution; Place 1-2 Sprays into both nostrils daily. Dispense: 16 g; Refill: 6 6. Chronic migraine without aura without status migrainosus, not intractable - nortriptyline (PAMELOR) 50 MG capsule; Take 3 Capsules (150 mg) by mouth daily at bedtime. Dispense: 270 Capsule; Refill: 3 Follow-up Scheduled for follow-up in six months for diabetes check and Medicare review. Labs to be completed before appointment. - Schedule follow-up appointment in August for diabetes check and Medicare review. - Complete labs before the next appointment. Patient understands that I will only add comments to abnormal lab or if it will change care plan. Shima Higuera DO documented in this encounter Plan of Treatment Scheduled Orders Name Type Priority Associated Diagnoses Orde r Schedule Hgb A1c Lab Routine Type 2 diabetes mellitus without complication, without long-term current use of insulin (HRC) Expected: 08/27/2025, Expires: 09/26/2025 Albumin/Creatinine Ratio,Random Urine Lab Routine Type 2 diabetes mellitus without complication, without long-term current use of insulin (HRC) Expected: 08/27/2025, Expires: 09/26/2025 Lipid Panel and Direct LDL(If Needed) Lab Routine Type 2 diabetes mellitus without complication, without long-term current use of insulin (HRC) Expected: 08/27/2025, Expires: 09/26/2025 Electrolyte Panel Lab Routine Type 2 diabetes mellitus without complication, without long-term current use of insulin (HRC) Expected: 08/27/2025, Expires: 09/26/2025 Creatinine / GFR Lab Routine Type 2 diabetes mellitus without complication, without long-term current use of insulin (HRC) Expected: 08/27/2025, Expires: 09/26/2025 documented as of this encounter Visit Diagnoses Diagnosis Type 2 diabetes mellitus without complication, without long-term current use of insulin (HRC)- Primary Onychomycosis Dermatophytosis of nail Essential hypertension (HRC) Unspecified essential hypertension Paresthesia Disturbance of skin sensation Allergic rhinitis, unspecified seasonality, unspecified trigger Chronic migraine without aura without status migrainosus, not intractable Chronic migraine without aura, without mention of intractable migraine without mention of status migrainosus documented in this encounter Care Teams Engineer Intern Relationship Specialty Start Date End Date Shima Higuera DO [address] [place] [address] PCP - General Family Practice 01/31/18 documented as of this encounter
--- OUTSIDE RECORDS SUMMARY | 2025-03-20 14:45 | XMS_ITS | Encounter Summary ---
Author Organization [facility] Address [address], [place] [address] Care Team Providers Care Nursing Department Chairperson Name Role Phone Shima Higuera Primary Care Provider [phone] Reason for Visit * Reason Comments Skin Check FBE Encounter Details Date Type Department Care Team (Late st Contact Info) Description 03/20/2025 2:45 PM CDT Office Visit [facility] [address] [place], [place] [phone] Yumiko Haytt MD [address] [place] [address] Seborrheic keratoses (Primary Dx); History of nonmelanoma skin cancer; Intertrigo Social History Tobacco Use Types Packs/Day Years [...] Progress Notes * Yumiko Hyatt MD - 03/20/2025 2:45 PM CDT Chief Complaint Patient presents with Skin Check FBE Problem List Dermatology Problems History of nonmelanoma skin cancer Overview right preauricular cheek, 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 female presenting for follow-up skin exam. Last exam was about 1 yr ago H/o intertrigo. 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 - ketoconazole (NIZORAL) 2 % cream; Apply thin layer to rash in skin folds qHS prn rash -zinc oxide ointment qHS Since then, her condition has been well-controlled with the keto cream but she prefers nystatin powder History of skin cancer: BCC, SCC Family history of melanoma: no PHYSICAL EXAM: Skin exam was conducted to include the scalp, face, neck, trunk, buttocks, pubic area, and extremities and was normal with the following exceptions (in addition to what is listed in the assessment and plan): Faint pink slightly macerated patch under pannus Stuck-on javier papule on rt mandible Well-healed scar(s) on rt cheek x 2, L nasal sidewall, L dorsal hand ASSESSMENT AND PLAN: Lidia was seen today for skin check. Diagnoses and all orders for this visit: Seborrheic keratoses Reassurance History of nonmelanoma skin cancer No sign of recurrence Intertrigo - nystatin (MYCOSTATIN) 384100 UNIT/GM powder; Apply sparingly to skin folds BID prn rash Follow-up 2 years for skin exam unless bleeding/non-healing, unusual or changing lesions arise Yumiko Hyatt MD documented in this encounter Plan of Treatment Not on file documented as of this encounter Visit Diagnoses Diagnosis Seborrheic keratoses- Primary History of nonmelanoma skin cancer Personal history of other malignant neoplasm of skin Intertrigo Other specified erythematous condition documented in this encounter Care Teams Nursing Department Chairperson Relationship Specialty Start Date End Date Shima Higuera DO [address] [place] [address] PCP - General Family Practice 01/31/18 documented as of this encounter
[2025-04-08] VITALS (70 sets, daily range): BP systolic 76–196; BP diastolic 53–158; PULSE 83–134; RESP 0–33; TEMP 36–37.4; O2SAT 84–100
--- OUTSIDE RECORDS SUMMARY | 2025-04-08 02:42 | XMS_ITS | Encounter Summary ---
Author Organization [facility] Address [address], [place] [address] Care Team Providers Care Sharepoint Consultant Name Role Phone Shima Higuera DO Primary Care Provider [phone] Encounter Details Date Type Department Care Team (Latest Contact Info) Description 03/13/2025 Orders Only [facility] DEPARTMENT Provider, [place] [address] Social History Tobacco Use Types Packs/Day Years [...] Associated Diagnosis Comments PAMELA (DIABETIC EYE EXAM) 03/13/2025 documented in this encounter Results * PAMELA (DIABETIC EYE EXAM) (03/13/2025) us Interface Provider DUMMY/OTHER/AR Final Resu lt documented in this encounter Visit Diagnoses Not on filedocumented in this encounter Care Teams Sharepoint Consultant Relationship Specialty Start Date End Date Shima Higuera DO [address] [place], [place] [phone] PCP - General Family Practice 01/31/18 documented as of this encounter
--- OUTSIDE RECORDS SUMMARY | 2025-04-08 02:42 | XMS_ITS | Clinical Summary ---
Author Organization [facility] Address [address] , [address] [place] [address] Phone Care Team Providers Care Burglar Alarm Inspector Name Role Phone [facility] Unavailable Unava ilable Conditions or Problems Problem Name Problem Code Onset Date Status Entry Date Provider Comment Standard Description Annotate Diabetes mellitus, type II with peripheral neuropathy hide you been worked up for [id number] (SNOMED CT) 08/30 Active 08/30 Jimmy Ruiz MD Peripheral neuropathy due to type 2 diabetes mellitus Neuropathic pain 233373952 (SNOMED CT) 08/30 Active 08/30 Jimmy Ruiz MD Neuropathic pain Myalgia of auxiliary muscles, head and neck 25007392 (SNOMED CT) 12/26 Active 12/26 Emili Longo DNP,FOOD MIXER,CN P Muscle pain Occipital neuralgia, right 50510430 (SNOMED CT) 09/27 Resolved 09/27 Emili Longo DNP,FOOD MIXER,CN P Cervico-occi pital neuralgia Headache 25804701 (SNOMED CT) 09/04 Resolved 09/04 Jimmy Ruiz MD Headache Headache 14108223 (SNOMED CT) 09/04 Removed 09/04 [facility] Headache Occipital neuralgia, right 78872507 (SNOMED CT) 09/27 Removed 09/27 Emili Longo DNP,FOOD MIXER,CN P Cervico-occi pital neuralgia MIGRAINE 74308254 (SNOMED CT) 10/08 Active 10/08 Emili Longo DNP,FOOD MIXER,CN P Migraine CERVICAL SPASM 55591192 (SNOMED CT) 09/18 Active 09/18 Emili Longo DNP,FOOD MIXER,CN P Muscle spasm of head and/or neck MIGRAINE 32345918 (SNOMED CT) 10/08 Correction 10/08 Emili Longo DNP,JOSÉ MANUEL,CN P Migraine HEADACHE 35075582 (SNOMED CT) 09/04 Inactive 09/04 Raffi Cardozo MD Headache Medications Medication Instructions Start Date Stop Date Generic Name NDC Provider GABAPENTIN 100 MG CAPS Take 1 capsule by mouth at bedtime ; may increase by 100 mg or 1 capsule per night until 900 mg per night or until pain is controlled whichever comes first. 11/07 gabapentin 50281021508 Jimmy Ruiz MD GABAPENTIN 100 MG CAPS Take 2 capsule by mouth every morning, and take 3 capsule by mouth every night gabapentin 79328823066 Jimmy Ruiz MD NORTRIPTYLINE HCL 50 MG CAPS Take 3 capsule by mouth every night Given through PCP for neuropathy and headaches 08/30 nortriptyline [id number] Jimmy Ruiz MD NORTRIPTYLINE HCL 50 MG CAPS Take 2 capsule by mouth every night Given through PCP for neuropathy and headaches nortriptyline 01754581680 Emili Longo DNP, APRN,EDUCATION ASSISTANT GABAPENTIN 100 MG CAPS Take 1 capsule by mouth at bedtime ; may increase by 100 mg or 1 capsule per night until 900 mg per night or until pain is controlled whichever comes first. 03/02 gabapentin 15971566101 Jimmy Ruiz MD IMITREX 100 MG TABS TAKE ONE PILL AT THE ONSET OF MIGRAINE; MAY REPEAT X 1 IF NEEDED AFTER 2 HOURS. NO MORE THAN 9 PILLS PER MONTH 01/23 sumatriptan succinate 28637861075 Emili Longo DNP,JOSÉ MANUEL,EDUCATION ASSISTANT SUMATRIPTAN SUCCINATE 100 MG TABS TAKE 1 TAB AT ONSET OF HEADACHE. MAY REPEAT IN 2 HOURS IF NEEDED. MAX 9 TABS PER MONTH. sumatriptan succinate 63025247917 Emili Longo DNP,FOOD MIXER,EDUCATION ASSISTANT NORTRIPTYLINE HCL 25 MG CAPS 08/29 nortriptyline 85036993135 Emili Longo DNP,FOOD MIXER,EDUCATION ASSISTANT NORTRIPTYLINE HCL 50 MG CAPS Take 3 capsule by mouth every night Given through PCP for neuropathy and headaches 08/30 nortriptyline 95246409840 Emili Longo DNP,FOOD MIXER,EDUCATION ASSISTANT ATORVASTATIN CALCIUM 40 MG TABS 1 once a day atorvastatin 14452591330 Emili Longo DNP,FOOD MIXER,EDUCATION ASSISTANT OZEMPIC (0.25 OR 0.5 MG/DOSE) 2 MG/3ML SOPN semaglutide 76610225659 Emili Longo DNP,FOOD MIXER,EDUCATION ASSISTANT NORTRIPTYLINE HCL 25 MG CAPS 03/02 nortriptyline 52077799133 Emili Longo DNP,FOOD MIXER,EDUCATION ASSISTANT FUROSEMIDE 20 MG TABS furosemide 33040103728 Emili Longo DNP,FOOD MIXER,EDUCATION ASSISTANT IMITREX 100 MG TABS TAKE ONE PILL AT THE ONSET OF MIGRAINE; MAY REPEAT X 1 IF NEEDED AFTER 2 HOURS. NO MORE THAN 9 PILLS PER MONTH 01/23 sumatriptan succinate 60415468872 Jimmy Ruiz MD NATURE-THROID 113.75 MG TABS THYROID Jimmy Ruiz MD NORTRIPTYLINE HCL 50 MG CAPS Take 2 capsule by mouth every night 08/29 nortriptyline 67272757944 Jimmy Ruiz MD IMITREX 100 MG TABS TAKE ONE PILL AT THE ONSET OF MIGRAINE; MAY REPEAT X 1 IF NEEDED AFTER 2 HOURS. NO MORE THAN 9 PILLS PER MONTH sumatriptan succinate 85306410430 Emili Longo DNP,FOOD MIXER,EDUCATION ASSISTANT VITAMIN B-12 250 MCG TABS cyanocobalamin (vitamin b-12) 40715777236 Emili Longo DNP,FOOD MIXER,EDUCATION ASSISTANT NORTRIPTYLINE HCL 50 MG CAPS Take 2 capsule by mouth every night nortriptyline 17928028461 Raffi Cardozo MD MAGNESIUM OXIDE -MG SUPPLEMENT 250 MG TABS magnesium oxide 65448467651 Emili Longo [facility],FOOD MIXER,EDUCATION ASSISTANT IMITREX 100 MG TABS Take 100 mg by mouth 12/15 sumatriptan succinate 21996620576 Raffi Cardozo MD CLARITIN 10 MG TABS loratadine 02499187679 Raffi Cardozo MD TYLENOL ARTHRITIS PAIN 650 MG CR-TABS once a day as needed TYLENOL ARTHRITIS PAIN 650 MG CR-TABS Emili Longo DNP,FOOD MIXER,EDUCATION ASSISTANT ATORVASTATIN CALCIUM 20 MG TABS 1 once a day 04/06 atorvastatin 19029755376 Emili Longo DNP,FOOD MIXER,EDUCATION ASSISTANT VALSARTAN-HYDROC HLOROTHIAZIDE 80-12.5 MG TABS 1 once a day valsartan-hydroch lorothiazide 82242345544 Emili Longo DNP,FOOD MIXER,EDUCATION ASSISTANT VITAMIN D-3 25 MCG (1000 UT) CAPS cholecalciferol (vitamin d3) 72476346643 Emili Longo [facility],FOOD MIXER,EDUCATION ASSISTANT METOPROLOL SUCCINATE ER 25 MG [id number] TAKE 1 TABLET BY MOUTH EVERY DAY metoprolol succinate 23034663694 Emili Longo [facility],FOOD MIXER,EDUCATION ASSISTANT METFORMIN HCL 500 MG TABS metformin 20690854870 Emili Longo [facility],FOOD MIXER,EDUCATION ASSISTANT NORTRIPTYLINE HCL 50 MG CAPS TAKE 2 CAPSULES BY MOUTH EVERY EVENING FOR HEADACHES 12/15 nortriptyline 65943988975 Raffi Cardozo MD NORTRIPTYLINE HCL 50 MG CAPS take 2 capsules by mouth every evening for headaches 12/05 NORTRIPTYLINE HCL 90515206307 Raffi Cardozo MD BLACK COHOSH 20 MG ORAL TABLET 05/01 BLACK COHOSH 71740016682 Emili Longo [facility],FOOD MIXER,EDUCATION ASSISTANT NORTRIPTYLINE HCL 50 MG CAPS 2 pills every evening for headaches 12/05 NORTRIPTYLINE HCL 99036247729 Emili Longo [facility],FOOD MIXER,EDUCATION ASSISTANT ATORVASTATIN CALCIUM 20 MG TABS On e pill daily 12/15 ATORVASTATIN CALCIUM 50055572797 Emili Longo DNP,FOOD MIXER,EDUCATION ASSISTANT VALSARTAN-HYDROC HLOROTHIAZIDE 80-12.5 MG TABS One pill daily 12/15 VALSARTAN-HYDROCH LOROTHIAZIDE 81062421465 Emili Longo DNP,FOOD MIXER,EDUCATION ASSISTANT NORTRIPTYLINE HCL 25 MG CAPS TAKE 4 CAPSULES BY MOUTH EVERY NIGHT AT BEDTIME 03/02 NORTRIPTYLINE HCL 00309334562 Raffi Cardozo MD CELEBREX 200 MG CAPS 09/05 CELECOXIB 53711797193 Emili Longo DNP,FOOD MIXER,EDUCATION ASSISTANT VALSARTAN 80 MG TABS One pill daily 03/14 VALSARTAN [id number] Emili Longo DNP,FOOD MIXER,EDUCATION ASSISTANT NORTRIPTYLINE HCL 25 MG CAPS 100 MG Q HS 03/02 NORTRIPTYLINE HCL 30786908034 Emili Longo DNP,FOOD MIXER,EDUCATION ASSISTANT NORTRIPTYLINE HCL 25 MG CAPS 75 MG Q HS 03/02 NORTRIPTYLINE HCL 48715345823 Raffi Cardozo MD NORTRIPTYLINE HCL 50 MG CAPS 100 mg PO Q HS 8/09 NORTRIPTYLINE HCL 61384797012 Raffi Cardozo MD NORTRIPTYLINE HCL 25 MG CAPS 25 MG PO QHS as directed for BARRAZA 7 NORTRIPTYLINE HCL [id number] Raffi Cardozo MD NORTRIPTYLINE HCL 50 MG CAPS 100 mg PO Q HS 12/05 NORTRIPTYLINE HCL 90529912665 Raffi Cardozo MD NORTRIPTYLINE HCL 50 MG CAPS 100 mg PO Q HS 12/05 NORTRIPTYLINE HCL [id number] Raffi Cardozo MD NORTRIPTYLINE HCL 75 MG CAPS 75 mg PO Q HS 12/05 NORTRIPTYLINE HCL 72591548094 Raffi Cardozo MD NORTRIPTYLINE HCL 50 MG CAPS 100 mg PO Q HS 12/05 NORTRIPTYLINE HCL 17733374114 Emili Longo DNP,FOOD MIXER,EDUCATION ASSISTANT TYLENOL ARTHRITIS PAIN 650 MG CR-TABS Daily as needed for arthritis. 12/15 ACETAMINOPHEN 02237696665 Emili Longo DNP,FOOD MIXER,EDUCATION ASSISTANT BLACK COHOSH 20 MG ORAL TABLET 05/01 BLACK COHOSH 13159761863 Emili Longo DNP,FOOD MIXER,EDUCATION ASSISTANT VITAMIN D-3 25 MCG (1000 UT) CAPS 12/15 CHOLECALCIFEROL 23128534355 Emili Longo DNP,FOOD MIXER,EDUCATION ASSISTANT MAGNESIUM OXIDE 250 MG TABS 03/02 MAGNESIUM OXIDE 31383635473 Emili Longo DNP,FOOD MIXER,EDUCATION ASSISTANT VITAMIN B-12 250 MCG TABS 12/15 CYANOCOBALAMIN [id number] Emili Longo DNP,FOOD MIXER,EDUCATION ASSISTANT MULTIVITAMINS ORAL CAPSULE MULTIPLE VITAMIN 69878716571 Emili Longo DNP,FOOD MIXER,EDUCATION ASSISTANT NORTRIPTYLINE HCL 10 MG CAPS Take 7 pills every bedtime 08/25 NORTRIPTYLINE HCL [id number] Emili Longo DNP,FOOD MIXER,EDUCATION ASSISTANT NORTRIPTYLINE HCL 75 MG CAPS One pill every evening. 12/05 NORTRIPTYLINE HCL [id number] Emili Longo DNP,FOOD MIXER,EDUCATION ASSISTANT AMBIEN 5 MG TABS 10/08 ZOLPIDEM TARTRATE [id number] Emili Longo DNP,FOOD MIXER,EDUCATION ASSISTANT NORTRIPTYLINE HCL 10 MG CAPS Take 7 pills every bedtime 08/28 NORTRIPTYLINE HCL [id number] Emili Longo DNP,FOOD MIXER,EDUCATION ASSISTANT NORTRIPTYLINE HCL 25 MG CAPS 25 MG PO QHS x 1 WEEK, 50 MG PO QHS 03/02 NORTRIPTYLINE HCL 57099835052 Raffi Cardozo MD AMBIEN 5 MG TABS 01/26 ZOLPIDEM TARTRATE 31043175047 Raffi Cardozo MD CELEBREX 200 MG CAPS 09/07 CELECOXIB [id number] Raffi Cardozo MD CLARITIN 10 MG TABS 12/15 LORATADINE 71968971533 Raffi Cardozo MD FLONASE 50 MCG/ACT NASAL SUSPENSION FLUTICASONE PROPIONATE 09387632741 Raffi Cardozo MD IMITREX 100 MG TABS TAKE 100 MG PO PRN AT THE ONSET. MAY REPEAT AFTER 2 HOURS. MAX 200 MG/DAY 12/15 SUMATRIPTAN SUCCINATE [id number] Emili Longo DNP,FOOD MIXER,EDUCATION ASSISTANT NATURE-THROID 113.75 MG ORAL TABLET THYROID 44794767409 Raffi Cardozo MD Medications Administered No information available. 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 MAY REPEAT AFTER 2 HOURS. MAX 200 MG/DAY``12`0``2015`[facility]*`[id number]`SUMATR IPTAN 100MG Quantity: 18 Tablet Instructions: TAKE 1 TABLET BY MOUTH NEEDED AT THE ONSET OF MIGRAINE. MAY REPEAT AFTER 2 HOURS. MAX 200 MG/DAY B e-scripts messen don refill request Office Visit: 6M PER AR 08/25 15:52- 09/21/18 15:52 REFERRING PHYSICIAN... FALLRSKASSES Patient screened for falls, fall risk Fall risk assess ment Internal Other: Authorizatio n - OBS [id number] Yes GE use only - for LinkLogic import when terms are not otherwise specified Internal Other: Verbal Autho rization/Emergency Contact - OBS VERBAL_EMER DONE Verbal au thorization and emergency contact Office Visit: Office Note Fo llow Up >>tf fax MEDS REVIEW Done Documenta tion of current medications (procedure) Internal Other: Authorizatio n AUTHBENEFIT Yes Authoriza tion: Assignment of Benefits and Payment Agreement AUTHVMEMTM Yes Authorizat ion: Authorization for [facility] to leave messages, voicemail, send text messages, send emails AUTHRELHCARE Yes Authoriz ation: Release/Retrieval of Information to/from Healthcare Facilities, Pharmacy Benefit Payers and Providers ROIAUTHOTHER Yes Authoriz ation: Release of Information - Authorize Others/Insurance - Payment and Healthcare Operations [email or web address] Yes Authoriza tion: Release of Information - Authorize [facility] - Payment and Healthcare Operations AUTHPRIVPRAC Yes Authoriz ation: Notice of privacy practices HIECONSENT Yes Consent To Release information to the Health Information Exchange (HIE) Plan of Care Type Date Detail Appointment 10:00 AM Emili fernandez DNP,FOOD MIXER,EDUCATION ASSISTANT, [address], [address], [place], [address], Appointment 11:20 AM Jimmy Ruiz MD, [address], [address], [place], [address], Pending order Follow up Pending order Follow up Pending order Trigger Point In jections Pending order [place] In jections Pending order Follow up [facility] Pending order Trigger [place] In jections Pending order [place]igger [place] In jections Pending order Patient Instruct ions Pending order Patient Instruct ions Pending order Follow up Pending order Follow up Pending Order exclud ed from report: Pending order Trigger Point In jections Pending order Trigger Point In jections Pending order Trigger [place] In jections Pending order Follow up with N eurologist or [facility] Pending order Occipital Nerve Block and Trigger Point Injections Pending order Trigger [place] In jections Pending order Patient Instruct ions Pending order Follow up [facility]CE[facility] in clinic or telemedicine Pending order Trigger Point In jections Pending order Trigger Point In jections Pending order Follow up in cli mert Pending order Patient Instruct ions Pending order Trigger Point In jections Pending order Patient Instruct ions Pending order Trigger Point In jections Pending order Trigger Point In jections Pending order Trigger Point In jections Pending order Follow up Pending order Trigger Point In jections Pending order Trigger Point In jections Pending order Trigger Point In jections Pending order Trigger Point In jections Pending order Trigger Point In jections Pending order Trigger Point In jections Pending order Follow up Pending order Follow up Pending order Follow up Pending order Other Test Pending order Follow up Pending order Follow up Pending order Follow up Pending order Follow up Pending order Follow up Pending order Follow up Pending order Follow up Pending order Follow up Pending order Follow up Pending order Follow up Pending order Follow up Procedures Code Procedure Name Date Entry Date ORDERS Follow [place] [address] [place] [address] Trigger Point Injections 2 CPT-14499 Trigger point inj (3+ musc) CPT-J1100 Dexamethasone -- 10 mg 12/28 CPT-38587 Trigger point inj (3+ musc) CPT-J1100 Dexamethasone -- 10 mg 09/04 [address] [place] [address] Trigger Point Injections 2 [facility]-[id number] Documentation of current medicatio ns ORDERS Patient Instructions ORDERS Follow up CPT-08396 Trigger point inj (3+ musc) CPT-J1100 Dexamethasone -- 10 mg 05/01 [address] [place] [address] Trigger Point Injections 2 024 CPT-26696 Trigger point inj (3+ musc) CPT-J1100 Dexamethasone -- 10 mg 12/26 ORDERS Trigger Point Injections 202 11/22/05 CPT-37283 Trigger point inj (3+ musc) CPT-J1100 Dexamethasone -- 10 mg 09/28 ORDERS Trigger Point Injections 202 10/31/06 CPT-76677 Trigger point inj (3+ musc) CPT-J1100 Dexamethasone -- 10 mg 06/29 ORDERS Trigger Point Injections 202 10/21/16 ORDERS Follow up with Neurologist or [facility] ORDERS Occipital Nerve Bloc k and Trigger Point Injections CPT-J1100 Dexamethasone -- 10 mg 04/06 CPT-42674 Trigger point inj (3+ musc) CPT-14206 Trigger point inj (3+ musc) CPT-J1100 Dexamethasone -- 10 mg 01/12 ORDERS Patient Instructions [facility]-[id number] Documentation of current medicatio ns ORDERS Follow up [facility] in clinic or telemedicine 2 ORDERS Trigger Point Injections 202 10/02/16 CPT-99829 Trigger point inj (3+ musc) CPT-J1100 Dexamethasone -- 10 mg 09/08 CPT-38921 Trigger point inj (3+ musc) CPT-J1100 Dexamethasone -- 10 mg 06/08 ORDERS Trigger Point Injections 202 09/29/24 ORDERS Follow up in clinic ORDERS Patient Instructions [facility]-[id number] Documentation of current medicatio ns ORDERS Patient Instructions CPT-74566 Trigger point inj (3+ musc) CPT-J1100 Dexamethasone -- 10 mg 03/16 ORDERS Trigger Point Injections 09/26/24 CPT-83454 Trigger point inj (3+ musc) ORDERS Trigger Point Injections 202 09/01/03 ORDERS Trigger Point Injections 202 08/29/11 CPT-J1100 Dexamethasone -- 10 mg 09/03 CPT-05215 Trigger point inj (3+ musc) [facility]-[id number] Documentation of current medicatio ns ORDERS Follow up ORDERS Trigger Point Injections 202 08/29/11 CPT-68419 Trigger point inj (3+ musc) CPT-J1100 Dexamethasone -- 10 mg 05/26 CPT-21290 Trigger point inj (3+ musc) CPT-J1100 Dexamethasone -- 10 mg 03/03 ORDERS Trigger Point Injections 202 08/26/11 ORDERS Trigger Point Injections 202 08/23/04 CPT-41070 Trigger point inj (3+ musc) CPT-J1100 Dexamethasone -- 10 mg 12/02 CPT-89798 Trigger point inj (3+ musc) CPT-J1100 Dexamethasone -- 10 mg 08/27 ORDERS Trigger Point Injections 202 ORDERS Trigger Point Injections 202 CPT-77532 Trigger point inj (3+ musc) CPT-J1100 Dexamethasone -- 10 mg 05/27 ORDERS Trigger Point Injections 202 CPT-34611 Trigger point inj (3+ musc) ORDERS Trigger Point Injections 201 05/01/09 CPT-J1100 Dexamethasone -- 10 mg 10/29 CPT-78533 Trigger point inj (3+ musc) CPT-J1100 Dexamethasone -- 10 mg 07/31 CPT-89418 Trigger point inj (3+ musc) CPT-J1100 Dexamethasone -- 10 mg 05/01 ORDERS Follow up CPT-J1100 Dexamethasone -- 10 mg 01/23 CPT-47418 Trigger point inj (3+ musc) ORDERS Follow up CPT-J1100 Dexamethasone -- 10 mg 09/21 CPT-55944 Trigger point inj (3+ musc) CPT-52394 Brief emotional/behavioral assessment 201 04/23/30 ORDERS Follow up [facility]-[id number] Documentation of current medicatio ns CPT-21198 Trigger point inj (3+ musc) CPT-J1100 Dexamethasone -- 10 mg 06/20 ORDERS Other Test CPT-55404 Trigger point inj (3+ musc) CPT-J1100 Dexamethasone -- 10 mg 03/14 [facility]-[id number] Documentation of current medicatio ns ORDERS Follow up ORDERS Follow up CPT-23825 Trigger point inj (3+ musc) CPT-01024 Trigger point inj (3+ musc) CPT-J1100 Dexamethasone -- 10 mg 07/19 [facility]-[id number] Documentation of current medicatio ns ORDERS Follow up CPT-00953 Brief emotional/behavioral assessment 201 02/27/23 CPT-27910 Trigger point inj (3+ musc) ORDERS Follow up [facility]CT-[id number] Documentation of current medicatio ns CPT-56864 Trigger point inj (3+ musc) CPT-J1100 Dexamethasone -- 10 mg 01/11 [facility]-[id number] Documentation of current medicatio ns CPT-25208 Trigger point inj (3+ musc) CPT-J1100 Dexamethasone -- 10 mg 10/12 ORDERS Follow up ORDERS Follow up [id number] Documentation of current medicatio ns SCT-[id number] Documentation of current medicatio ns CPT-91203 Occipital nerve block x1 201 02/01/05 CPT-64135 Trigger point inj (3+ musc) CPT-J1100 Dexamethasone -- 10 mg 07/27 ORDERS Follow up [facility]CT-[id number] Documentation of current medicatio ns SCT-[id number] Documentation of current medicatio ns CPT-83046 Brief emotional/behavioral assessment 201 01/31/14 SCT-[id number] Documentation of current medicatio ns ORDERS Follow up SCT-[id number] Documentation of current medicatio ns CPT-48652 Trigger point inj (3+ musc) CPT-J1100 Dexamethasone - 5 mg ORDERS Follow up SCT-[id number] Documentation of current medicatio ns SCT-[id number] Documentation of current medicatio ns ORDERS Follow up ORDERS Follow up CPT-62418 MRI Brain W/O Vital Signs Date Name Value Unit Description Height 65.5 [in_us] height E&M Heart Rate 62 /min pulse rate BP Diastolic 80 mm[Hg] blood pressu re, diastolic BP Systolic 113 mm[Hg] blood pressur e, systolic Respiratory Rate 16 /min respirat ory rate E&M BMI (Body Mass Index) 38.32 kg/m2 Bod y Mass Index (Ratio) Weight Measured 233 [lb_av] weight E& M Weight Measured 233 [lb_av] weight E& M Immunizations No information available. Advance Directives No information available.
--- OUTSIDE RECORDS SUMMARY | 2025-04-08 02:42 | XMS_ITS | Encounter Summary ---
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
--- OUTSIDE RECORDS SUMMARY | 2025-04-08 02:42 | XMS_ITS | Encounter Summary ---
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
--- OUTSIDE RECORDS SUMMARY | 2025-04-08 02:42 | XMS_ITS | Encounter Summary ---
Author Organization [facility] Address [address] [address] Care Team Providers Care Gut Cleaner Name Role Phone Shima Higuera DO Primary Care Provider [phone] Encounter Details Date Type Department Care Team (Latest Contact Info) Description 03/08/2025 Orders Only [facility] DEPARTMENT Provider, [place] [address] Social History Tobacco Use Types Packs/Day Years [...] Procedure Name Priority Date/Time Associated Diagnosis Comments LABORATORY REPORT 03/08/2025 documented in this encounter Results * LABORATORY REPORT (03/08/2025) us Interface Provider DUMMY/OTHER/AR Final Resu lt documented in this encounter Visit Diagnoses Not on filedocumented in this encounter Care Teams Gut Cleaner Relationship Specialty Start Date End Date Shima Higuera DO [address] [place] [address] PCP - General Family Practice 01/31/18 documented as of this encounter
--- OUTSIDE RECORDS SUMMARY | 2025-04-08 02:43 | XMS_ITS | Clinical Summary ---
Author Organization [employer] Address [address], [place] [address] Care Team Providers Care Tape Transferrer Name Role Phone Shima Higuera Primary Care Provider [phone] Source Comments You are receiving this document as you are listed as the primary care provider,follow-up provider, or the patient has been referred to you for consultation.This is in compliance with the Medicare andMedicaid EHR Incentive Program,which states Providers who transition their patient to another setting of careor provider of care or refers their patient to another provider of care shouldprovide summary care record for each transition of care or referral. [employer] Allergies Active Allergy Reactions Criticality Noted Date Comments Bee Venom Rash 09/18/2015 Benzoin Rash 07/03/2003 Oxycodone Confusion 09/18/2015 Sulfa Antibiotics Rash 10/26/2002 Wound Dressing Adhesive Dermatitis,Rash Low 014 Steri-strips have caused a rash. Medications * This document contains information received from the source organization and may not represent a complete record from that organization. Multiple Vitamins-Minerals (MULTIVITAMIN OR) Take 1 tablet by mouth daily (every 24 hours). 05/15/20 10 Active cholecalciferol (VITAMIN D3) 1000 UNITS tabletIndications :S/P gastric bypass Take 1 Tablet (1,000 Units) by mouth daily. 07/06/20 11 Active SUMAtriptan (IMITREX) 100 MG tabletIndications :CHANEL ARAIZA Jun 14, 2014 10:42 AM pt took two tabs this am Take 1 Tablet (100 mg) by mouth as needed for Migraine (Take 100 mg by mouth as needed for Migraine.). Indications: CHANEL ARAIZA [facility] Jun 14, 2014 10:42 AM pt took two tabs this am 06/14/20 14 Active loratadine (CLARITIN) 10 MG tablet Take 1 Tablet (10 mg) by mouth daily. 07/02/20 13 Active acetaminophen (TYLENOL ARTHRITIS) 650 MG controlled release tablet As needed 1 tab every 4-6 hours, not more than 4000 mg/d. 09/15/19 17 Active EPINEPHrine (EPIPEN) 0.3 MG/0.3ML injectionIndicati ons:Bee allergy status Inject 0.3 mL intramuscularly as needed (Inject 1 Dose into the muscle as needed.). 1 Each 1 01/11/20 19 Active cyanocobalamin 500 MCG tablet Take by mouth. Active Blood Glucose Monitoring Suppl (BLOOD GLUCOSE METER KIT)Indications:T ype 2 diabetes mellitus without complication, without long-term current use of insulin (HRC) Use as directed. 1 Kit 11/04/19 22 Active lancetsIndication s:Type 2 diabetes mellitus without complication, without long-term current use of insulin (HRC) Use 1 Each to test three times a day. 100 Each 11 11/04/19 22 Active ketoconazole (NIZORAL) 2 % creamIndications: Candidal intertrigo Apply thin layer to rash in skin folds qHS prn rash 60 g 3 03/15/20 24 Active cyclobenzaprine (FLEXERIL) 10 MG tablet Take 1 Tablet (10 mg) by mouth two times daily as needed. 05/08/20 24 Active gabapentin (NEURONTIN) 100 MG capsuleIndication s:Takes two in the morning, three at night Take 1 Capsule (100 mg) by mouth three times a day. Indications: Takes two in the morning, three at night Active metFORMIN (GLUCOPHAGE) 500 MG tabletIndications :Type 2 diabetes mellitus without complication, without long-term current use of insulin (HRC) Take 2 Tablets (1,000 mg) by mouth two times a day with meals. 1000 mg with breakfast and evening meal 360 Tablet 3 09/06/19 25 Active metoprolol succinate (TOPROL XL) 25 MG 24 hour release tabletIndications :Essential hypertension (HRC) Take 1 Tablet (25 mg) by mouth daily. 90 Tablet 3 09/06/19 25 Active atorvastatin (LIPITOR) 40 MG tabletIndications :Hyperlipidemia, unspecified hyperlipidemia type (HRC) Take 1 Tablet (40 mg) by mouth daily. 90 Tablet 2 09/06/19 25 Active blood glucose (ACCU-CHEK GUIDE TEST) test stripIndications: Type 2 diabetes mellitus without complication, without long-term current use of insulin (HRC) USE 1 EACH TO TEST THREE TIMES A DAY 300 Strip 3 01/27/20 25 Active nortriptyline (PAMELOR) 50 MG capsuleIndication s:Paresthesia,Chr onic migraine without aura without status migrainosus, not intractable Take 3 Capsules (150 mg) by mouth daily at bedtime. 270 Capsule 3 02/29/20 25 Active fluticasone propionate (FLONASE) 50 MCG/ACT nasal solutionIndicatio ns:Allergic rhinitis, unspecified seasonality, unspecified trigger Place 1-2 Sprays into both nostrils daily. 16 g 6 02/29/20 25 Active nystatin (MYCOSTATIN) 708045 UNIT/GM powderIndications :Intertrigo Apply sparingly to skin folds BID prn rash 60 g 11 03/20/20 25 Active nystatin (MYCOSTATIN) 310342 UNIT/GM powderIndications :Intertrigo Apply topically two times a day. 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, Basal cell carcinoma Nasal dorsum BCC L Dorsal hand SCCIS Migraine, chronic, without aura 09/08/2012 Depressive disorder 06/09/2012 Overview (04/14/2017): Depressive disorder, not elsewhere classified Osteoarthritis of multiple joints 04/23/2009 Overview (04/14/2017): DJD Multiple Sites Bariatric surgery status 10/02/2003 Overview (04/14/2017): LAP GASTRIC BYPASS Essential hypertension 01/27/2003 Overview (04/14/2017): Hypertension Hyperlipidemia 01/27/2003 Obesity 01/27/2003 Resolved Problems Problem Noted Date Diagnosed Date Resolved Date Adenopathy 11/14/2018 02/09/2022 Overview (11/14/2018): Added automatically from request for surgery [id number] Psychological factors associ ated with another disorder 06/09/2012 02/09/2022 Overview (04/14/2017): Psychic factors associated with diseases classified elsewhere 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 07/09/2008 02/09/2022 Overview (04/14/2017): LW Modifier: surgery R and L ; Varicose Veins w Pain Encounters Date Type Department Care Team Description 03/20/2025 2:45 PM CDT Office Visit [facility] [address] [place] [address] Yumiko Hyatt MD Seborrheic keratoses (Primary Dx); History of nonmelanoma skin cancer; Intertrigo 03/13/2025 Orders Only [facility] DEPARTMENT ProviderShyam MD 03/08/2025 Orders Only [facility] DEPARTMENT ProviderShyam MD 02/28/2025 9:40 AM CDT Office Visit [facility] [address] [place], [place] [id number] Shima Higuera DO Type 2 diabetes mellitus without complication, without long-term current use of insulin (HRC) (Primary Dx); Onychomycosis; Essential hypertension (HRC); Paresthesia; Allergic rhinitis, unspecified seasonality, unspecified trigger; Chronic migraine without aura without status migrainosus, not intractable 02/26/2025 8:20 AM CDT Lab Visit [facility] [address] [place], [place] [id number] Type 2 diabetes mellitus without complication, without long-term current use of insulin (HRC) 02/15/2025 9:30 AM CDT Initial Consult [facility] [address] [facility] [address] [place] [phone] Zia Gama MD Varicose veins of both lower extremities with complications (Primary Dx); Left leg pain 02/15/2025 9:00 AM CDT Ancillary Procedure [facility] [address] [facility] [address] [place] [phone] Hemant Fallon, [facility] Varicose veins of both lower extremities with pain 02/07/2025 Notes/Orders [address] [place] [address] Shima Higuera, Screening for colon cancer 01/24/2025 Refill [facility] [address] [address] Shima Higuera, Refill (ACCU-CHEK GUIDE TEST test strip [Pharmacy Med Name: Accu-Chek Guide Test In Vitro Strip]) from Last 3 Months Immunizations Immunization Administration Dates Next Due Flu Vac (3+ yrs) 05/28/2016, 5,05/17/2014,2012,04/18/2012 Flu Vac Preserv Free (3+yrs) 05/22/2013, 04/18/2012,06/05/2011,2009,04/30/2009,06/11/2008,06/28/2006,1 10/12/2003 HepA-HepB (TWINRIX, 18+ yrs) 04/26/2013,10/04/19 13,09/02/2012 HepB Adult (Engerix-B, 20+ y rs, 3 dose series) 03/23/2013,11/21/2012,08/23/2012 Influenza [id number] 09/02/2009 Influenza IIV3 (Trivalent) F luzoadrian Highdose, 65+ Yrs (31908) 06/13/2019,06/13/2018,05/20/2017 Influenza IIV4 (Quadrivalent ) Fluad, 65+ Yrs 05/17/2023,08/12/2022,06/18/2021,2019 Influenza aIIV3 65+ Years (Fluad) 05/11/2024 Influenza, Unspecified Formulation 05/23,02/13/2014,05/15/2010,2008,06/08/2008,06/07/2007,06/28/2006,1 10/12/2003,06/15/2001 Moderna Monovalent 12+ 10/09/2021,11/21/2020,11/2020 PCV13 (Prevnar) 02/02/2017 PPSV23 (Pneumovax) 08/02/2018,11/18/2012 Pfizer COVID-19 12+ 05/11/2024 Pfizer Monovalent 12+ Purple Top 04/07/2022 TDAP [...] file Not on file Not on file Last Filed Vital Signs Vital Sign Reading Time Taken Comments Blood Pressure 126/57 02/28/2025 9:31 AM CDT Pulse 74 02/28/2025 9:31 AM CDT Temperature 36.3 C (97.4 F) 10/18/2024 8:42 AM LEACH CELL OPERATOR Respiratory Rate 11 11/15/2018 11:22 AM CDT Oxygen Saturation 99% 10/18/2024 8:42 AM LEACH CELL OPERATOR Inhaled Oxygen Concentration - - Weight 87.2 kg (192 lb 3.2 oz) 02/28/2025 9:31 A M CDT Height 164.5 cm (5' 4.75) 05/11/2024 9:40 AM CD T Body Mass Index 32.23 05/11/2024 9:40 AM CDT Plan of Treatment Health Maintenance Due Date Last Done Comments Pneumococcal PCV20 Immunization Discussion 1950 Mammogram 03/25/2024 03/25/2023, 01/22, 02/03/2021, Additional history exists COVID-19 Vaccine ( season) 2024 05/11/2024, 04/07/2022, 10/09/2021, Additional history exists FIT Colon Cancer Screening 03/07/202503/07, 03/01/2023, 06/23/2021, Additional history exists Influenza Vaccine (#1) 2025 , 05/17/2023, 08/12/2022, Additional history exists Diabetes: HGBA1C 08/29/2025 02/26/2025, , 02/29/2024, Additional history exists Diabetes: Albumin/Creatinine Ratio, Urine 09/06/2025 09/06/2024, 08/30/2023, 08/11/2022, Additional history exists Diabetes: Foot Exam 09/06/2025 09/06/2024, 05/17/2023, 02/09/2022 (Completed) Medicare Annual Wellness Visit 09/06/2025 09/06/2024, 09/01/2023, 11/13/2022, Additional history exists DTaP/Tdap/Td Vaccine (4 - Tdap) 01/22/2026 01/23/2016, 01/23/2016, 01/19/2014, Additional history exists Diabetes: Creatinine 02/26/2026 02/26/2025, 09/04/2024, 09/30/2023, Additional history exists Diabetes: Eye Exam 03/13/2026 03/13/2025, 0 03/13/2024, 03/09/2023, Additional history exists RSV Vaccine (1 - 1-dose 75+ series) 11/05/2026 Diabetes: Lipid Panel 09/04/2029 09/04/2024 , 02/29/2024, 02/10/2023, Additional history exists HepA Vaccine Completed 04/26/2013, 09/23, 09/02/2012 HepB Vaccine Completed 04/26/2013, 08/2012, 11/21/2012, Additional history exists Dexa Completed 05/25/2018, 04/23, 04/05/2018 Pneumococcal Vaccine 50+ Yrs Completed 08/02/2018, 02/02/2017, 11/18/2012 Zoster/Shingles Vaccine Completed 06/13/20, 04/18/2019, 11/09/2017, Additional history exists Hep C Screening (Preventive Services) Completed 08/08/2019 (Completed) Cholesterol Discontinued 09/04/2024, 04/2024, 02/10/2023, Additional history exists Hib Vaccine Aged Out No longer eligi ble based on patient's age to complete this topic MCV4 Vaccine Aged Out No longer eligi ble based on patient's age to complete this topic Meningococcal B Vaccine Aged Out No l onger eligible based on patient's age to complete this topic Medical Devices Implanted Type Area Staff Weapons Officer Device Identifier Shelf Expiration Date Model / Serial / Lot [place] Swivelock Dx 3.5x8.5 - [id number] Implanted:Qty: 1 on 11/29/2017 by Bnejamin Judge MD at [facility] Left: HAND [employer] 08/22/2022 AR-8978P / 00 / [id number] [place] Swivelock Dx 3.5x8.5 - [id number] Implanted:Qty: 1 on 11/29/2017 by Benjamin Judge MD at [facility] Left: HAND [employer] 08/22/2022 AR-8978P / 00 / [id number] K-Wire Gd .062 - [id number] Implanted:Qty: 1 on 11/29/2017 by Benjamin Judge MD at [facility] [employer] Left: HAND [employer] 09/10/2021 [id number] / NA / [id number] Procedures Procedure Name Priority Date/Time Associated Diagnosis Comments PAMELA (DIABETIC EYE EXAM) 03/13/2025 LABORATORY REPORT 03/08/2025 CREATININE / GFR Routine 02/26/2025 8:16 AM CDT Type 2 diabetes mellitus without complication, without long-term current use of insulin (HRC) ELECTROLYTE PANEL Routine 02/26/2025 8:1 6 AM CDT Type 2 diabetes mellitus without complication, without long-term current use of insulin (HRC) HGB A1C Routine 02/26/2025 8:16 AM CDT Type 2 diabetes mellitus without complication, without long-term current use of insulin (HRC) VL US LOWER EXTREMITY BILAT VENOUS REFLUX Routine 02/15/2025 9:33 AM CDT Varicose veins of both lower extremities with pain ALBUMIN/CREAT RATIO Routine 09/06/2024 9 :59 AM LEACH CELL OPERATOR Type 2 diabetes mellitus without complication, without long-term current use of insulin (HRC) LIPID PANEL & DIRECT LDL (IF NEEDED) Routine 09/04/2024 8:09 AM LEACH CELL OPERATOR Type 2 diabetes mellitus without complication, without long-term current use of insulin (HRC) FIT,OCCULT BLOOD, STOOL Routine 03/07/2024 8:00 AM CDT Screening for colon cancer MM MAMMOGRAM SCREENING BILAT W CAD Routine 03/25/2023 10:27 AM CDT Encounter for screening mammogram for malignant neoplasm of breast DXA BONE DENSITY SPINE/HIP/FOREARM INC VFA Routine 05/25/2018 8:22 AM CDT Osteoporosis screening from Last 3 Months or Most Recently Relevant to Health Maintenance Results * PAMELA (DIABETIC EYE EXAM) (03/13/2025) us Interface Provider MD DUMMY/OTHER/AR Final Resu lt * LABORATORY REPORT (03/08/2025) us Interface Provider MD DUMMY/OTHER/AR Final Resu lt * Creatinine / GFR (02/26/2025 8:16 AM CDT) Creatinine 0.87 0.55 - 1.02 mg/dL 02/26/2025 2:31 PM CDT [facility] GFR, Estimated >60 >60 mL/min/1.7 3m2 02/26/2025 2:31 PM T [facility] Blood Venipuncture / Unknown 02/26/2025 8:16 AM CDT 02/26/2025 8:16 AM CDT us Shima Higuera DO LAB_1 Final Result [facility] [address] [place] [address] * Electrolyte Panel (02/26/2025 8:16 AM CDT) Sodium 142 136 - 145 mmol/L 02/26/2025 2:31 PM CDT [facility] Potassium 4.1 3.5 - 5.1 mmol/L 02/26/2025 2:31 PM CDT [facility] Chloride 105 98 - 109 mmol/L 02/26/2025 2:31 PM CDT [facility] CO2 24 20 - 29 mmol/L 02/26/2025 2:31 PM T [facility] Anion Gap 13 6 - 16 mmol/L 02/26/2025 2:31 PM T [facility] Blood Venipuncture / Unknown 02/26/2025 8:16 AM CDT 02/26/2025 8:16 AM CDT Shima Higuera DO LAB_1 Final Result Performing Organization Address City/[facility]/ZIP Co de Phone Number [facility] [address] [place] [address], [facility] * (ABNORMAL) Hgb A1c (02/26/2025 8:16 AM CDT) Hemoglobin A1C 6.3(H) <=5.6 % 02/26/2025 5:53 PM CDT [facility] Estimated Average Glucose (Calc) 134 < 117 mg/dL 02/26/2025 5:53 PM CDT [facility] Comment:Estimated average gl ucose (eAG) converts A1c into glucose units (mg/dL) and estimates average glucose over the past approximately 3 months. The eAG reference interval (<117 mg/dL) corresponds to an A1c of <5.7%. Blood Venipuncture / Unknown 02/26/2025 8:16 AM CDT 02/26/2025 8:16 AM CDT Narrative [facility] - 02/26/2025 5:53 PM CDT For patients not previously diagnosed with diabetes: 5.7-6.4%: Increased risk for diabetes 6.5% and greater: Diagnostic for diabetes For patients diagnosed with diabetes: <8.0%: Goal of therapy for ages 18-75 Clinicians may recommend a higher or lower goal for specific individuals. Shima Higuera DO LAB_1 Final Result [facility] [address] [address], [facility] * VL US Lower Extremity Bilat Venous Reflux (02/15/2025 9:33 AM CDT) Anatomical Region Laterality Modality Vascular, Lower Extremity, Leg U ltrasound Impressions 02/16/2025 6:18 PM CDT Right great saphenous vein incompetence. Right small saphenous vein incompetence at the distal calf. Chronic non-occlusive superficial thrombophlebitis within the right great saphenous vein from the groin to the distal calf. Chronic non-occlusive superficial thrombophlebitis within a varicose vein at the right mid calf. Incompetent right public health physician vein at the mid calf. Incompetent right femoral and popliteal veins. Left small saphenous vein incompetence. There are multiple incompetent varicosities within the right and left lower extremities. No evidence of right or left lower extremity deep vein thrombosis. Narrative 02/16/2025 6:18 PM CDT Indication: varicose veins History of right great saphenous vein radiofrequency ablations: 07/09/08 and 07/13/05. History of bilateral great saphenous vein stripping. A duplex ultrasound study using Doppler was performed, to evaluate the right and left lower extremity veins for valvular incompetence. RIGHT LOWER EXTREMITY The great saphenous vein diameters: saphenofemoral junction: 6.4mm, immediately after the saphenofemoral junction: 7.7mm, proximal thigh: 6.0mm, knee: 6.0mm. The great saphenous vein is incompetent from the saphenofemoral junction to the distal calf. The time of incompetence is greater than 500 milliseconds in length. There is chronic non-occlusive superficial thrombophlebitis within the great saphenous vein from the groin to the distal calf. The small saphenous vein at the proximal calf measures 2.3mm. The small saphenous vein is incompetent at the distal calf. The time of incompetence is greater than 500 milliseconds in length. There is an incompetent public health physician vein (4.0mm) draining into the posterior tibial veins at the mid calf. The time of incompetence is greater than 500 milliseconds in length. Varicose vein diameter: 4.8mm. There is evidence of multiple incompetent varicose veins within the right lower extremity. The time of incompetence is greater than 500 milliseconds. There is chronic non-occlusive superficial thrombophlebitis within a varicose vein at the mid calf. The small saphenous vein is fully compressible with no evidence of thrombus. The gastrocnemius veins were segmentally visualized and are fully compressible where seen. The femoral and popliteal veins are incompetent and free of thrombus. The remaining deep venous system is competent and free of thrombus. LEFT LOWER EXTREMITY The great saphenous vein is absent from the groin to the distal calf. The small saphenous vein diameters: saphenopopliteal junction: 5.6mm, immediately after the saphenopopliteal junction: 7.6mm. The small saphenous vein is incompetent at the saphenopopliteal junction and from the mid to distal calf. The time of incompetence is greater than 500 milliseconds in length. The small saphenous vein is absent at the proximal calf. There is no evidence of incompetent public health physician veins at any level. Varicose vein diameter: 4.8mm. There is evidence of multiple incompetent varicose veins within the left lower extremity. The time of incompetence is greater than 500 milliseconds. The small saphenous vein is fully compressible with no evidence of thrombus. The gastrocnemius veins were segmentally visualized and are fully compressible where seen. The deep venous system is competent and free of thrombus. Hemant Fallon [facility] RAD VASCULAR US Fannei rubia Result * Albumin/Creatinine Ratio,Random Urine (09/06/2024 9:59 AM LEACH CELL OPERATOR) Pathologist [facility] Albumin/Creati nine Ratio, Urine, Random 5 <30 mg/g 09/06/2024 3:12 PM [facility] Albumin, Urine, Random 3.3 mg/L 09/06/2024 3:12 PM [facility] Creatinine, Urine, Random 65 >20 mg/dL mg/dL 09/06/2024 3:12 PM [facility] Urine Non-blood Collection / Unknown 09/06/2024 9:59 AM LEACH CELL OPERATOR 09/06/2024 9:59 AM [facility] Shima Higuera DO LAB_1 Final Result [facility] [address] [place] [address] * Lipid Panel and Direct LDL(If Needed) (09/04/2024 8:09 AM LEACH CELL OPERATOR) [facility] Cholesterol 166 0 - 199 mg/dL 09/04/2024 2:50 PM [facility] Triglyceride 146 <=149 mg/dL 09/04/2024 2:50 PM [facility] HDL Cholesterol 57 >=40 mg/dL 2:50 PM [facility] LDL, Calculated 80 <130 mg/dL 2:50 PM [facility] Non HDL Chol, Calculated 109 <=159 mg/dL 09/04/2024 2:50 PM [facility] Cholesterol/HDL Ratio 2.9 <=5.0 09/04/2024 2:50 PM [facility] Hours Fasting 11.0 8 - 12 Hours 09/04/2024 2:50 PM [facility] Blood Venipuncture / Unknown 09/04/2024 8:09 AM LEACH CELL OPERATOR 09/04/2024 8:09 AM LEACH CELL OPERATOR Shima Higuera DO LAB_1 Final Result Performing Organization Address City/[facility]/ZIP Co de Phone Number [facility] [address] [place] [address] [address] [place] [address] * FIT Colon Rectal Cancer Screening (03/07/2024 8:00 AM CDT) FIT Specimen 1 Negative Negative 03/08/2024 1:36 AM CDT [facility] Stool Non-blood Collection / Unknown 03/07/2024 8:00 AM CDT 03/07/2024 2:15 PM CDT Shima Higuera DO LAB_1 Final Result [facility] [address] * MM Mammogram Screening Bilat W CAD [...] 10/13/2017 MM Mammogram Screening Bilat W CAD FINDINGS: Bilateral screening mammogram was performed with the assistance of Computer-Aided Detection . The breasts have scattered areas of fibroglandular density. There is no radiographic evidence of malignancy. Shima Higuera DO RAD JONES Final Result * DEXA Bone Density Spine/Hip/Forearm Including Vertebral Fracture Assessment (05/25/2018 8:22 AM CDT) Anatomical Region Laterality Modality Spine, Hip Radiographic Claudia ging Narrative 06/08/2018 8:00 PM CDT CLINIC DXA REPORT Patient Name: Lidia Akhtar Wendell: Carmel Stringer MD Densitometer: HoloPrepared Response Horizon W (S/N [id number]) ALMANZAR BONE OSTEOPOROSIS RISK FACTORS FROM PATIENT QUESTIONNAIRE: The patient is a 67 y.o.female: who is postmenopausal since age 41. She takes vitamin D. The patient has previous gastric bypass. BONE MINERAL DENSITY: Lumbar Spine Vertebrae Included: L1;L2;L4 Bone Mineral Density (gm/cm2): 1.08 T-Score: 0.4 Z-Score: 2.3 Total Hip Bone Mineral Density (gm/cm2): 1.001 T-Score: 0.5 Z-Score: 1.8 Femoral Neck Bone Mineral Density (gm/cm2): 0.652 T-Score: -1.7 Z-Score: -0.1 1/3 Forearm Bone Mineral Density (gm/cm2): 0.629 T-Score: -1.1 Z-Score: 0.7 FRAX 10 year probability major osteoporotic fracture: 8.3% 10 year probability hip fracture: 0.9% COMPARISON TO PRIOR STUDY: Date of prior study: 01/18/2008 Lumbar spine change: -10.5% Total hip change: -2.3% VERTEBRAL FRACTURE ASSESSMENT: No vertebral fractures from T5 through L4. Scan quality is limited. ASSESSMENT: 1. Osteopenia, based on T-score(s) at the femoral neck and 1/3 forearm. 2. Patient is at low risk of fracture, based on age, fracture history, bone mineral density at all skeletal sites, and presence or absence of other risk factors. RECOMMENDATIONS: 1. Optimize calcium and vitamin D intake 2. Repeat DXA in 5 years FRAX Explanation: The 10 year risks of hip and major osteoporotic fractures (clinical spine, forearm, hip or shoulder fracture) are calculated by the FRAX algorithm based on femoral neck bone density, age, gender, race/ethnicity, weight, height, previous fracture, parental hip fracture, smoking status, glucocorticoid intake, history of RA, secondary osteoporosis, and high alcohol consumption. FRAX Fracture Risk Categories in terms of major osteoporotic fractures: < 10% = low fracture risk ? 10% and <15% = mildly increased fracture risk ? 15% and <20% = moderately increased fracture risk ? 20% and <30% = high fracture risk ? 30% = very high fracture risk National [employer] Treatment Guideline A clinician may consider FDA-approved medical therapies in postmenopausal women and men aged 50 years and older, if one or more of the following is present (clinical correlation required and therapy may not always be indicated): 1. The patient has a hip or vertebral fracture. 2. T-score ? -2.5 at the femoral neck, hip, or spine after appropriate evaluation to exclude secondary causes. 3. Low bone mass (T-score between -1.0 and -2.5 at the femoral neck, hip or spine) and a 10-year probability of a hip fracture ? 3% or a 10-year probability of a major osteoporosis-related fracture ? 20% based on the FRAX scores. Shima Higuera DO RAD DEXA Final Result from Last 3 Months or Most Recently Relevant to Health Maintenance Insurance [facility] MEDICARE ADVANTAGE [place] [id number] [facility] MEDICARE ADVANTAGE [place] [id number] Advance Directives * Full Code (Latest Code Status on File) Date Activated Date Inactivated Comments 11/15/2018 11:32 AM 11/15/2018 3:07 PM Full code i n effect for 30 days * Full Code Date Activated Date Inactivated Comments 11/29/2017 1:01 PM 11/29/2017 4:28 PM * Full Code Date Activated Date Inactivated Comments 02/04/2016 12:46 PM 02/04/2016 6:44 PM Care Teams Tape Transferrer Relationship Specialty Start Date End Date Shima Higuera DO [address] [place] [address] PCP - General Family Practice 01/31/18
--- OUTSIDE RECORDS SUMMARY | 2025-04-08 02:43 | XMS_ITS | Clinical Summary ---
Author Organization [facility] Address [address] [place] [id number] Care Team Providers Care Spindle Plumber Name Role Phone Clinic, No Pcp Or Primary Care Provider Unavaila jordan TranrichShima DO Unavailable [phone] Allergies Active Allergy Reactions Criticality Noted Date Comments Bee Pollen Rash 11/13/2022 Venom-Honey Bee Rash 02/18/2011 Benzoin Rash 02/18/2011 Gum Dkqjwi-Dbhton-Wmoy-Alcohol Rash 06/20/2014 Steri strips, bandaids Oxycodone Confusion 06/21/2014 Sulfa (Sulfonamide Antibiotics) Rash 11/13/2022 Unlisted Allergen (Include Detail In Comments) Rash 02/18/2011 Steri-strips Medications multivitamin (MVI) tablet Take 1 tablet by mouth once daily. Active ascorbic acid chewable (VITAMIN C) 500 mg tablet Take 500 mg by mouth once daily. Active calcium-cholec alciferol, vitamin D, 500 mg-200 units (CALCIUM 500+D) 500 mg(1,250mg) -200 unit tablet Take 1 tablet by mouth once daily with a meal. 1 Active cetirizine (ZYRTEC) 10 mg tablet Take 10 mg by mouth once daily. Active cyanocobalamin (VITAMIN B-12) 500 mcg tablet Take by mouth once daily. Active EPINEPHrine Base 0.3 mg/0.3 mL (1:1,000) Syrg by Injection route. As needed Active ferrous sulfate, 65 mg elemental, 325 mg (65 mg iron) tablet Take 325 mg by mouth once daily with a meal. Active FLUTICASONE PROPIONATE NASL Inhale 0.05 % in the nostril(s) once daily if needed. 1-2 spray per nostril 1 Active traZODone (DESYREL) 50 mg tablet Take 50 mg by mouth at bedtime if needed. Active cholecalcifero l (VITAMIN D) 1,000 unit tablet Take 1,000 Units by mouth once daily. Active KRILL OIL ORAL Take 1 Tab by mouth once daily. Active SUMAtriptan (IMITREX) 100 mg tablet Take 100 mg by mouth every 2 hours if needed for Migraine. Max dose: 200mg per 24 hrs. Active nortriptyline 50 mg capsule Take 100 mg by mouth at bedtime. Active acetaminophen (TYLENOL) 325 mg tablet Take 2 tablets by mouth every 4 hours if needed for Pain (For mild pain.). Max acetaminophen dose: 4000mg in 24 hrs. 60 tablet 0 4 Active HYDROmorphone (DILAUDID) 2 mg tablet Take 1-2 tablets by mouth every 3 hours if needed for Pain. 60 tablet 0 4 Active valsartan (DIOVAN) 80 mg tabletIndicati ons:hypertensi on Take 80 mg by mouth once daily. Indications: HYPERTENSION Active furosemide (LASIX) 20 mg tablet Take 1 Tablet (20 mg) by mouth once daily if needed for leg swelling. 90 Tablet 3 11/13/2022 2:52 PM CDT 3 Active cyclobenzaprin e (FLEXERIL) 10 mg tabletIndicati ons:Musculoske letal back pain Take 1 Tablet (10 mg) by mouth 2 times daily if needed for Muscle Spasm. 15 Tablet 4 Active benzonatate (TESSALON) 100 mg capsuleIndicat ions:Pneumonia of left lower lobe due to infectious organism Take 1 Capsule (100 mg) by mouth 3 times daily if needed for Cough. 30 Capsule 4 Active Active Problems Problem Noted Date Diagnosed Date Anemia associated with acute blood loss 06/26/20 14 Post-op pain 06/25/2014 Post-operative state 06/25/2014 S/P total knee replacement 06/25/2014 HTN (hypertension) 06/25/2014 Migraine 06/25/2014 DJD (degenerative joint disease) 06/25/2014 Knee replacement 02/21/2011 Bladder dysfunction 02/21/2011 Pure hypercholesterolemia 02/21/2011 S/P gastric bypass 02/21/2011 Immunizations Immunization Administration Dates Next Due Influenza Virus, Unspecified 05/07/2014 Social History Tobacco Use Types Packs/Day Years Used Date Smoking Tobacco: Never Smokeless Tobacco: Never Comments:works at the [employer] Alcohol Use Standard Drinks/Week Comments Yes 0 (1 standard drink = 0.6 oz pur e alcohol) 4 per year Interpersonal Safety Answer Date Record ed Are you being hit, kicked, p ushed or yelled at (see row info)? No 08/03/2024 Interpersonal Safety Abuse 12 - 18 Not on file 08/03/2024 Interpersonal Safety Ambulatory Vulnerability No t on file 08/03/2024 Comments No Sex and Gender Information Value Date Recorded Sex Assigned at Not on file Legal Sex Female 2:19 PM CDT Gender Identity Not on file Sexual Orientation Not on file Obstetrics History Last Filed Vital Signs Vital Sign Reading Time Taken Comments Blood Pressure 140/79 08/03/2024 4:45 PM SUBSTATION OPERATOR Pulse 77 08/03/2024 4:45 PM SUBSTATION OPERATOR Temperature 36.5 C (97.7 F) 08/03/2024 3:19 PM SUBSTATION OPERATOR Respiratory Rate 18 08/03/2024 4:45 PM SUBSTATION OPERATOR Oxygen Saturation 97% 08/03/2024 4:45 PM SUBSTATION OPERATOR Inhaled Oxygen Concentration - - Weight 83.9 kg (185 lb) 08/03/2024 3:19 PM SUBSTATION OPERATOR Height 167.6 cm (5' 6) 08/03/2024 3:19 PM SUBSTATION OPERATOR Body Mass Index 29.86 08/03/2024 3:19 PM SUBSTATION OPERATOR Plan of Treatment Health Maintenance Due Date Last Done Comments Tetanus booster 11/05/1962 Depression screening for age 12+ 1963 BMI (ht and wt on same day) for age 18+ 11/05/1969 Hepatitis C screening for age 18-79 11/05/1969 Colonoscopy through age 75 11/05/1996 Lipids for age 45-75 11/05/1996 Mammogram for age 45-75 11/05/1996 Pneumococcal series for age 50+ (1 of 1 - PCV) 11/05/2001 Zoster (shingles) series for age 50+ (1 of 2) 11/05/2001 DEXA/DXA scan for age 65+ 11/05/2016 COVID-19 vaccine series (2023- season) 2024 05/11/2024, 04/07/2022, 10/09/2021, Additional history exists Influenza Vaccine (#1) 2025 05/07/2014 RSV vaccine for adults or (1 - 1-dose 75+ series) 11/05/2026 Hepatitis B series for 19+ Aged Out N o longer eligible based on patient's age to complete this topic Medical Devices Implanted Type Area Cat Driver Device Identifier Shelf Expiration Date Model / Serial / Lot Patella Sz32 Amelia Ii Rnd Penon Pors - [id number] Implanted:Qty: 1 on 06/25/2014 by Mukesh Ornelas MD at [facility] Total Joint Right: Knee [employer] 05/22/2024 [id number] # / / [id number] Baseplate Tib Rt Sz4 Amelia Ii Titnm Non Pors - [id number] Implanted:Qty: 1 on 06/25/2014 by Mukesh Ornelas MD at [facility] Total Joint Right: Knee [employer] 01/21/2024 [id number]# / / [id number] Cmnt Bone Surg Simplex - [id number] Implanted:Qty: 1 on 02/20/2011 at [facility] Left: Knee [employer] 03/23/2013 6191-1-01 0# / / [id number] Femur Sigma 4n Lt Npors - [id number] Implanted:Qty: 1 on 02/20/2011 at [facility] Left: Knee J [employer] J [employer] 11/21/2020 1960-00-4 00# / / [id number] Patella Sigma 35mm Oval/[id number] J&Jortho - [id number] Implanted:Qty: 1 on 02/20/2011 at [facility] Left: Knee [employer] 01/22/2016 96-0101# / / [id number] Implant On The Fly - [id number] Implanted:Qty: 1 on 02/20/2011 at [facility] Left: Knee [employer] 09/23/2020 [id number] # / / [id number] Description:Tibial Tray Fixe d Bearing Insert Xlk Sz 3 10mm Cvd Sigma - [id number] Implanted:Qty: 1 on 02/20/2011 at [facility] Left: Knee [employer] 10/22/2015 1581-13-1 10# / / [id number] Cmnt Bone 40g Simplex P Atb Mvtobramycin - [id number] Implanted:Qty: 1 on 06/25/2014 by Mukesh Ornelas MD at [facility] Right: Knee [employer] 08/22/2015 6197-9-00 1# / / [id number] Femur Rt Sz6n Legion Narrow Ps Oxin - [id number] Implanted:Qty: 1 on 06/25/2014 by Mukesh Ornelas MD at [facility] Right: Knee [employer] 05/22/2024 [id number]# / / [id number] Insert Knee Sz3-4 13mm Genesisii Tib Pe - [id number] Implanted:Qty: 1 on 06/25/2014 by Mukesh Ornelas MD at [facility] Right: Knee [employer] 12/20/2018 [id number]# / / [id number] Insurance [facility] BLUE CROSS MEDICARE ADVANTAGE [place] * Guarantor: ST CONTRACT,EDUCATION NO-CHARGE Account Type Relation to Patient Date of Phone Billing Address Contract 2009 ATTN: [employer] [address] [place] [address] Advance Directives * Full Code (Latest Code Status on File) Date Activated Date Inactivated Comments 06/25/2014 10:56 AM 06/28/2014 6:38 PM * Full Code Date Activated Date Inactivated Comments 06/25/2014 6:13 AM 06/25/2014 10:56 AM * Full Code Date Activated Date Inactivated Comments 02/20/2011 2:11 PM 02/22/2011 7:33 PM * Full Code Date Activated Date Inactivated Comments 02/20/2011 10:28 AM 02/20/2011 2:11 PM Care Teams Spindle Plumber Relationship Specialty Start Date End Date Clinic, No Pcp Or . PCP - General 05/08/24 Shima Higuera DO . Family Practice 05/08/24
--- NOTE | 2025-04-08 02:46 | CRLHL7_ITS ---
For Patients: As a result of the Century Cures Act, medical imaging exams and procedure reports are released immediately into your electronic medical record. You may view this report before your referring provider. If you have questions, please contact your health care provider. DATE: 04/08/2025 CLINICAL HISTORY: Patient with focal neurological deficits. TECHNIQUE: Standard helical CT image acquisition through the intracranial circulation following intravenous administration of contrast material with bolus tracking. 2D and 3D MIP images for post-processing were performed and interpreted on an independent workstation and 3D images were permanently archived. COMPARISON: CT same day. FINDINGS: There is no cerebral aneurysm or large vessel occlusion. The right internal carotid artery is normal. The right middle cerebral artery and its branches are normal. The right anterior cerebral artery and its branches are normal. The left internal carotid artery is normal. The left middle cerebral artery and its branches are normal. The left anterior cerebral artery and its branches are normal. The anterior communicating artery is well visualized and appears normal. The right vertebral artery and PICA are normal. The left vertebral artery and PICA are normal. The left vertebral artery is dominant. The basilar artery is patent and appears normal. The right posterior cerebral artery is normal. The left posterior cerebral artery is normal. The visualized venous structures are patent. IMPRESSION: Patent proximal intracranial vasculature without intracranial aneurysms. Please note that all CT scans at this facility use dose modulation, iterative reconstruction, and/or weight-based dosing when appropriate to reduce radiation dose to as low as reasonably achievable. Dictated by Natalee Warren MD @ 04/08/2025 10:12:24 AM (Electronically Signed)
--- NOTE | 2025-04-08 02:46 | CRLHL7_ITS ---
For Patients: As a result of the Century Cures Act, medical imaging exams and procedure reports are released immediately into your electronic medical record. You may view this report before your referring provider. If you have questions, please contact your health care provider. Indication: Stroke Technique: Noncontrast CT through the head with multiplanar reformats Comparison: None Findings: Mild motion degradation. Brain: No acute hemorrhage. No acute infarct. No significant mass effect or midline shift. No gross evidence of a mass lesion or cerebral edema. Ventricles: No acute abnormality appreciated. Orbits, sinuses, mastoids: No acute abnormality appreciated. Calvarium and soft tissues: No acute abnormality appreciated. Impression: Mild motion degradation. Grossly, no acute abnormality is appreciated. If there is strong clinical concern for acute infarct, MRI would be recommended for further evaluation. Please note that all CT scans at this facility use dose modulation, iterative reconstruction, and/or weight-based dosing when appropriate to reduce radiation dose to as low as reasonably achievable. Dictated by Matthew Figueroa MD @ 04/08/2025 3:43:53 AM (Electronically Signed)
--- NOTE | 2025-04-08 02:46 | CRLHL7_ITS ---
For Patients: As a result of the Century Cures Act, medical imaging exams and procedure reports are released immediately into your electronic medical record. You may view this report before your referring provider. If you have questions, please contact your health care provider. DATE: 04/08/2025 CLINICAL HISTORY: Patient with focal neurological deficits. TECHNIQUE: Standard helical CT image acquisition of the neck up to the skull base after bolus intravenous contrast enhancement. 2D and 3D MIP images for post-processing were performed and interpreted on an independent workstation and 3D images were permanently archived. COMPARISON: CT same day. FINDINGS: The origins of the great vessels from the aortic arch are patent. The origin of the right vertebral artery is patent. The origin of the left vertebral artery is patent. The common carotid arteries are patent. There is no stenosis at the origin of the right internal carotid artery. There is no stenosis at the origin of the left internal carotid artery. The rest of the cervical segments of the internal carotid arteries are patent up to the skull base. The left vertebral artery is dominant. The cervical segments of the vertebral arteries are patent up to the skull base. The visualized lung apices are unremarkable. The thyroid gland is unremarkable. The soft tissues of the neck are unremarkable. There are degenerative changes in the cervical spine. IMPRESSION: Patent cervical vasculature. Please note that all CT scans at this facility use dose modulation, iterative reconstruction, and/or weight-based dosing when appropriate to reduce radiation dose to as low as reasonably achievable. Dictated by Natalee Warren MD @ 04/08/2025 10:10:04 AM (Electronically Signed)
--- NOTE | 2025-04-08 02:53 | ED_ITS ---
HPI - General Adult General Chief complaint: Altered Mental Status Stated complaint: Stroke Time Seen by Provider: 04/08/25 02:46 Source: family and EMS Mode of arrival: EMS Limitations: altered mental status History of Present Illness HPI narrative: 74-year-old female presents to the emergency department via EMS. Family called 911 because patient had fallen in the kitchen and did not seem herself. Last known normal was yesterday mid morning, despite the fact that other adults do live in the home. No witnessed seizure. EMS did take her blood sugar as she has a history of diabetes and blood sugars were 180s. They noted facial droop, confusion, difficulty following commands, difficulty moving her arm though not complete, would have to brace it with the other arm to keep it from falling. EMS admits that family was very vague in her description of symptoms. She had also fallen in the kitchen a couple of hours before but they could not specify timing. No vomiting, no fever no recent illness. No medication change. No on else is ill in the home. No suspicion for alcohol or drug intoxication. Patient can follow commands, speech is slurred. Past medical history notable for diabetes, hypertension. Home medications are metoprolol Ozempic and metformin allergies to bees and sulfas, nonsmoker. History all obtained from records and EMS. Related Data Home Medications ?Medication ?Instructions ?Recorded ?Confirmed metformin 500 mg tablet 1,000 mg PO BID 10/05/23 metoprolol succinate 25 mg 25 mg PO DAILY 10/05/23 tablet,extended release 24 hr semaglutide 0.25 mg or 0.5 mg (2 mg subcut 10/05/23 mg/3 mL) subcutaneous pen injector (Ozempic) fluticasone propionate 50 intranasal 04/08/25 mcg/actuation nasal spray,suspension nortriptyline 50 mg capsule mg 04/08/25 Allergies Allergy/AdvReac Type Severity Reaction Status Date / Time bee venom protein (honey bee) Allergy Unknown Verified 04/08/25 03:11 Sulfa (Sulfonamide Allergy Unknown Verified 04/08/25 03:11 Antibiotics) [facility] Medical History (Updated 04/08/25 @ 05:06 by Pilar Hernández MD) Type 2 diabetes mellitus, without long-term current use of insulin ?E11.9 - Type 2 diabetes mellitus without complications (ICD-10) Bladder dysfunction ?N31.9 - Neuromuscular dysfunction of bladder, unspecified (ICD-10) Hyperlipidemia ?E78.5 - Hyperlipidemia, unspecified (ICD-10) Migraine ?G43.909 - Migraine, unspecified, not intractable, without status migrainosus (ICD-10) Anemia associated with acute blood loss ?D62 - Acute posthemorrhagic anemia (ICD-10) Sleep apnea ?G47.30 - Sleep apnea, unspecified (ICD-10) Osteoarthritis of knee ?M17.9 - Osteoarthritis of knee, unspecified (ICD-10) Obesity ?E66.9 - Obesity, unspecified (ICD-10) HTN (hypertension) ?I10 - Essential (primary) hypertension (ICD-10) DJD (degenerative joint disease) ?M19.90 - Unspecified osteoarthritis, unspecified site (ICD-10) Surgical History (Updated 04/08/25 @ 03:33 by Iliana Benvaidez RN) H/O dilation and curettage ?Z98.890 - Other specified postprocedural states (ICD-10) H/O hernia repair ?Z98.890 - Other specified postprocedural states (ICD-10) ?Z87.19 - Personal history of other diseases of the digestive system (ICD-10) S/P gastric bypass ?Z98.84 - Bariatric surgery status (ICD-10) Social History Smoking Status: Never smoker Do you use any of these nicotine containing products: None Second hand tobacco smoke exposure: No How often do you have a drink containing alcohol: never How often do you have six or more drinks on one occasion: Never AUDIT-C Alcohol total score: 0 Non-prescribed substance use: denies use service: No Exam Const: Vital Signs, click to edit/add: Vital Signs - 24 hr 04/08/25 02:41 04/08/25 03:12 04/08/25 03:13 Temperature 96.8 F L Pulse Rate 97 98 Pulse Rate [Left P ulse Oximeter] 83 Respiratory Rate 20 13 Blood Pressure 173/91 H Blood Pressure [Le ft Upper Arm] 134/98 H Pulse Oximetry 96 99 99 Oxygen Delivery Me thod Room Air 04/08/25 03:16 04/08/25 03:17 04/08/25 03:30 Temperature Pulse Rate 92 91 100 Pulse Rate [Left P ulse Oximeter] Respiratory Rate 33 H Blood Pressure 158/91 H Blood Pressure [Le ft Upper Arm] Pulse Oximetry 93 99 98 Oxygen Delivery Me thod 04/08/25 03:31 04/08/25 03:45 04/08/25 03:47 Temperature Pulse Rate 101 H 100 101 H Pulse Rate [Left P ulse Oximeter] Respiratory Rate 20 19 Blood Pressure 182/95 H 178/110 H Blood Pressure [Le ft Upper Arm] Pulse Oximetry 93 97 97 Oxygen Delivery Me thod 04/08/25 04:00 04/08/25 04:02 04/08/25 04:15 Temperature Pulse Rate 101 H 96 105 H Pulse Rate [Left P ulse Oximeter] Respiratory Rate 32 H 29 H Blood Pressure 196/158 H Blood Pressure [Le ft Upper Arm] Pulse Oximetry 97 97 98 Oxygen Delivery Me thod 04/08/25 04:20 04/08/25 04:21 04/08/25 04:30 Temperature Pulse Rate 102 H 103 H Pulse Rate [Left P ulse Oximeter] Respiratory Rate 27 H Blood Pressure Blood Pressure [Le ft Upper Arm] Pulse Oximetry 97 98 97 Oxygen Delivery Me thod 04/08/25 04:34 04/08/25 04:45 04/08/25 05:00 Temperature Pulse Rate 105 H 105 H 106 H Pulse Rate [Left P ulse Oximeter] Respiratory Rate 21 20 Blood Pressure Blood Pressure [Le ft Upper Arm] Pulse Oximetry 97 96 96 Oxygen Delivery Me thod 04/08/25 05:15 04/08/25 05:20 04/08/25 05:31 Temperature Pulse Rate 93 92 89 Pulse Rate [Left P ulse Oximeter] Respiratory Rate 17 Blood Pressure 151/86 H 144/79 H Blood Pressure [Le ft Upper Arm] Pulse Oximetry 97 96 95 Oxygen Delivery Me thod 04/08/25 05:45 04/08/25 06:00 04/08/25 06:01 Temperature Pulse Rate 89 88 88 Pulse Rate [Left P ulse Oximeter] Respiratory Rate 16 Blood Pressure 134/75 Blood Pressure [Le ft Upper Arm] Pulse Oximetry 93 95 93 Oxygen Delivery Me thod 04/08/25 06:15 04/08/25 06:30 04/08/25 06:31 Temperature Pulse Rate 88 88 87 Pulse Rate [Left P ulse Oximeter] Respiratory Rate 11 L 12 Blood Pressure 142/85 H Blood Pressure [Le ft Upper Arm] Pulse Oximetry 94 95 96 Oxygen Delivery Me thod 04/08/25 06:32 04/08/25 06:45 04/08/25 07:00 Temperature Pulse Rate 88 88 89 Pulse Rate [Left P ulse Oximeter] Respiratory Rate 11 L Blood Pressure Blood Pressure [Le ft Upper Arm] Pulse Oximetry 96 96 96 Oxygen Delivery Me thod 04/08/25 07:01 Temperature Pulse Rate 89 Pulse Rate [Left P ulse Oximeter] Respiratory Rate 12 Blood Pressure 147/90 H Blood Pressure [Le ft Upper Arm] Pulse Oximetry 95 Oxygen Delivery Me thod Documenting provider has reviewed patient's vital signs: yes Other: Patient restless, but will answer questions when redirected. Continues to fidget and attempt to move around in bed frequently. HENMT: Common normals: normocephalic, head/scalp atraumatic and dentition normal Head and scalp: normocephalic and atraumatic Other: Oral membranes are dry with normal dentition. Symmetric pharynx. Midline tongue. Does appear to be a mild left facial droop. Eye: Other: Difficulty with visual tracking though exam was not reproducible when re- attempted 3 times. She is restless and difficult to redirect at times to complete exam. Pupils are equal and round and do react to light normally. Neck & C-Spine: Common normals: no lymphadenopathy Chest: Common normals: inspection of chest normal Resp: Common normals: normal respiratory effort, no use of accessory muscles and clear to auscultation bilaterally Effort & inspection: able to speak in complete sentences Auscultation: clear to auscultation bilaterally Cardio: Common normals: regular rate, regular rhythm, S1 normal heart sound, S2 normal heart sound and no murmurs Rate: regular rate Rhythm: regular rhythm Heart sounds: S1 normal and S2 normal GI: Common normals: Normal to inspection, nondistended, normoactive bowel sounds present, soft to palpation, non-tender, no hepatosplenomegaly and no masses Palpation: soft and no hepatosplenomegaly Back & Pelvis: Common normals: thoracic and lumbar spine normal to inspection Extremity: Other: Slight sunburn to the tops of both thighs, symmetric without point tenderness. Knees show signs of prior total arthroplasty, old and well healed. No significant deformity, redness or point tenderness to the knees or ankles. Neuro: Other: Oriented to person, incorrect on place. Fairly correct on timing. Awareness of situation of the hospital is intact to though the circumstances she cannot recall. Speech is mildly slurred and does have some difficulty with word finding of objects but can recall date, name quickly and easily. There is some slight flattening of the left side of the face with droop of the mouth but she can close the eyes completely. She has difficulty with coordination of both hands the left does seem more uncoordinated. She does not have shruthi pronator drift but has difficulty on both sides with fine motor movements and rapid movements. The lower extremities are slightly more coordinated with 5/5 strength but still below normal coordination and rapid movements. Patient had difficulty understanding in completing sensory exam and was too restless. Does have a fine tremor of upper extremity, no asterixis. Restless but redirectable insight poor. Psych: Activity/motor behavior: psychomotor agitation Insight: limited Judgement: limited Skin: Common normals: no rashes or lesions noted Narrative: No bruising, signs of injury or trauma. General skin exam: no rashes or lesions noted Course Course ED Course: 74-year-old female med in the hallway upon EMS arrival, brief initial exam noted to have left-sided visual field deficits, left-sided facial droop, bilateral mildly poor coordination of extremities with possible upper extremity weakness left greater than right. Difficulty with speech and word finding, slight slurring and poor attention holding.. Patient sent straight to CT for a noncontrast study, anticipate CT angio as well. I did see the initial CT pop up and did not see any signs of an acute bleed. Will proceed with CT angio. Once this is been completed will get patient back to room perform more thorough neurological evaluation and anticipate neurology consult. Update: More thorough neuro exam shows a lot of restlessness, difficult to get her to participate but there does seem to be evidence of left-sided facial droop, poor coordination of upper extremities left side slightly worse than right. Difficulty with visual tracking though it was not easily reproducible with her restlessness. Mild slurring of speech and difficulty with word finding with altered mental status. Will obtain typical altered mental status labs. Stroke neuro has been consulted. Awaiting results of CT imaging. Not thought t o be a candidate for tPA. Reevaluation(s) Reevaluation #1: Update: We were able to speak with the stroke neurology team and they are in agreement that this does not seem like a focal stroke and based on the timeline is not likely a candidate for thrombolytics. I am suspecting that this is more case of delirium. The exams continue to fluctuate and with her poor attention and participation they are not exactly reproducible and are a bit difficult to interpret. She also is getting a little more agitated and restless. She perseverates on things. I am electing to give her 5 mg of Zyprexa to help her relax so that we can complete our workup. Secondary update: Patient's sister and nephew have arrived. The nephew was 10 years old and it is unusual that he is awake at this time of day but he was actually quite helpful. The sister reports that the patient is typically normal at baseline. She drives, manages her own meals, finances etc.. She has never seen her quite like this. Sister let me know the patient does frequently complain of chronic left leg pain and has had this worked up in the past. No specific fixable etiology has been found. Yesterday, the patient went to a movie with the friend. The patient did not know what move it was once she got home. She has never had a bout of delirium before. Sister does not believe the patient has been drinking alcohol, does not believe that she would have accepted drugs from someone else. The patient nor the sister know the patient's medications well and we do not have an accurate list based on their description. My strong suspicion is that this is likely an episode of some sort of polypharmacy induced delirium but it is difficult to tell what. Neurology has recommended an MRI. We also need to get better clarification of her medications. She is now resting comfortably after the Zyprexa and we have obtained a urine sample which also does not show infection. The remainder of the blood work is also not suspicious for a specific etiology. I recommend PT OT consult, observation and the MRI as above. Can read consult Neurology if there are any new symptoms or findings revealed. Unfortunately, we do not have a bed yet at this time but we may be able to get the MRI of we hold the patient in the ER later today. We will be able to call the tech at home and requests this at 7:00 a.m., will await this response in our decision making. Update: Unable to get MRI of the brain today. Will need to be admitted for observation and MRI. Patient has slept comfortably and has had no further spells or outburst. Will admit to medical floor for observation and further workup of delirium. Still suspecting polypharmacy as primary etiology. Vital Signs Vital signs: Initial Vital Signs Temperature 96.8 F L 04/08/25 02:41 Temperature Source Temporal Artery Scan 04/08/25 02:41 Pulse Rate 83 04/08/25 02:41 Respiratory Rate 20 04/08/25 02:41 Blood Pressure 134/98 H 04/08/25 02:41 Blood Pressure Mean 110 H 04/08/25 02:41 Blood Pressure Position Supine 04/08/25 02:41 Pulse Oximetry 96 04/08/25 02:41 Oxygen Delivery Method Room Air 04/08/25 02:41 Vital Signs Temperature 96.8 F L 04/08/25 02:41 Pulse Rate 83 04/08/25 02:41 Respiratory Rate 20 04/08/25 02:41 Blood Pressure 134/98 H 04/08/25 02:41 Pulse Oximetry 96 04/08/25 02:41 Oxygen Delivery Method Room Air 04/08/25 02:41 Temperature 96.8 F L 04/08/25 02:41 Pulse Rate 89 04/08/25 07:01 Respiratory Rate 12 04/08/25 07:01 Blood Pressure 147/90 H 04/08/25 07:01 Pulse Oximetry 95 04/08/25 07:01 Oxygen Delivery Method Room Air 04/08/25 02:41 Medications Administered Medications: Discontinued Medications Generic Name Dose Route Start Last Admin Trade Name Freq PRN Reason Stop Dose Admin Hydrocodone Bitart/Acetaminophen 1 tab 04/08/25 03:39 04/08/25 03:55 Hydrocodone-Acetamin 5-325 Mg 1 Tab PO 04/08/25 03:40 1 tab ONCE ONE Administration Olanzapine 5 mg 04/08/25 04:05 04/08/25 04:16 Olanzapine 5 Mg Tab.Rapdis PO 04/08/25 04:06 5 mg ONCE ONE Administration Medical Decision Making Lab Data Lab results reviewed: Yes I reviewed the patient's lab results Lab results narrative: Labs reassuring. No significant leukocytosis, urine not suspicious for infection, electrolytes, kidney function liver function normal. No alcohol intoxication. TCAs are present drug screen but does sound like she does knowingly take these Labs: Lab Results 04/08/25 04/08/25 04/08/25 Range/Units 02:40 03:00 05:04 WBC 8.47 (4.50-11.00) K/uL RBC 3.46 L (4.00-5.20) m/uL Hgb 11.2 L (12.0-16.0) gm/dL Hct 35.3 (33.0-51.0) % MCV 102 H (80-100) fL MCH 32 (26-34) pg MCHC 32 (32-36) gm/dL RDW Coeff of [place] 11.9 (11.5-15.5) % Plt Count 287 (140-440) K/uL Neut % (Auto) 47.7 (42.0-72.0) % Lymph % (Auto) 41.9 (20-44) % [place] % (Auto) 6.0 (0.0-11.0) % Eos % (Auto) 3.7 (0.0-7.0) % Baso % (Auto) 0.5 (0.0-3.0) % Neut # (Auto) 4.04 (1.7-7.0) K/uL Lymph # (Auto) 3.55 H (0.90-2.90) K/uL [place] # (Auto) 0.50 (0.00-0.90) K/UL Eos # (Auto) 0.31 (0.00-0.50) K/uL Baso # (Auto) 0.04 (0.00-0.30) K/uL Abs Immat Gran (auto) 0.02 (0.00-0.30) K/uL Imm/Tot Granulo (auto) 0.2 % INR 0.91 (0.91-1.10) Sodium 139 (135-149) mmol/L Potassium 4.1 (3.6-5.1) mmol/L Chloride 105 (96-114) mmol/L Carbon Dioxide 27 (20-32) mmol/L Anion Gap 7 (7-15) mEq/L BUN 28 (7-30) mg/dL Creatinine 0.9 (0.5-1.5) mg/dL Estimated GFR 68 ml/min Glucose 179 H (60-115) mg/dL Lactate 1.7 (0.5-1.9) mmol/L Calcium 9.6 (8.4-10.6) mg/dL Total Bilirubin 0.3 (0.1-1.5) mg/dL AST 33 (12-35) U/L ALT 29 (4-35) U/L Alkaline Phosphatase 41 (40-150) U/L Troponin I < 0.01 (0.01-0.04) ng/mL C-Reactive Protein < 0.5 L (0.5-1.0) mg/dL Total Protein 6.7 (6.0-8.3) g/dL Albumin 4.0 (3.3-5.0) g/dL Urine Color (Yellow) Urine Appearance (Clear) Urine pH (5.0-8.5) Ur Specific [place] (1.000-1.030) Urine Protein (Negative) Urine Glucose (UA) (Negative) Urine Ketones (Negative) Urine Blood (Negative) Urine Nitrite (Negative) Urine Bilirubin (Negative) Urine Urobilinogen (0.2-1.0) Ur Leukocyte Esterase (Negative) Urine RBC (0-2) Urine WBC (0-5) Ur Squamous Epith Cells (None-Few) Urine Bacteria (None) Urine Opiates Screen Negative (Negative) Ur Buprenorphine Scrn Negative (Negative) Ur Oxycodone Screen Negative (Negative) Urine Methadone Screen Negative (Negative) Ur Barbiturates Screen Negative (Negative) U Tricyclic Antidepress POSITIVE A (Negative) Ur Phencyclidine Scrn Negative (Negative) Ur Amphetamines Screen Negative (Negative) U Methamphetamines Scrn Negative (Negative) U Benzodiazepines Scrn Negative (Negative) Urine Cocaine Screen Negative (Negative) U Marijuana (THC) Screen Negative (Negative) Ur Drug Screen Comment See Note Ethyl Alcohol < 0.01 (0.01-0.03) % Lab Acknowledgement Test Added 04/08/25 Range/Units 05:20 WBC (4.50-11.00) K/uL RBC (4.00-5.20) m/uL Hgb (12.0-16.0) gm/dL Hct (33.0-51.0) % MCV (80-100) fL MCH (26-34) pg MCHC (32-36) gm/dL RDW Coeff of [place] (11.5-15.5) % Plt Count (140-440) K/uL Neut % (Auto) (42.0-72.0) % Lymph % (Auto) (20-44) % [place] % (Auto) (0.0-11.0) % Eos % (Auto) (0.0-7.0) % Baso % (Auto) (0.0-3.0) % Neut # (Auto) (1.7-7.0) K/uL Lymph # (Auto) (0.90-2.90) K/uL [place] # (Auto) (0.00-0.90) K/UL Eos # (Auto) (0.00-0.50) K/uL Baso # (Auto) (0.00-0.30) K/uL Abs Immat Gran (auto) (0.00-0.30) K/uL Imm/Tot Granulo (auto) % INR (0.91-1.10) Sodium (135-149) mmol/L Potassium (3.6-5.1) mmol/L Chloride (96-114) mmol/L Carbon Dioxide (20-32) mmol/L Anion Gap (7-15) mEq/L BUN (7-30) mg/dL Creatinine (0.5-1.5) mg/dL Estimated GFR ml/min Glucose (60-115) mg/dL Lactate (0.5-1.9) mmol/L Calcium (8.4-10.6) mg/dL Total Bilirubin (0.1-1.5) mg/dL AST (12-35) U/L ALT (4-35) U/L Alkaline Phosphatase (40-150) U/L Troponin I (0.01-0.04) ng/mL C-Reactive Protein (0.5-1.0) mg/dL Total Protein (6.0-8.3) g/dL Albumin (3.3-5.0) g/dL Urine Color Yellow (Yellow) Urine Appearance Cloudy A (Clear) Urine pH 5.5 (5.0-8.5) Ur Specific [place] 1.010 (1.000-1.030) Urine Protein Negative (Negative) Urine Glucose (UA) Negative (Negative) Urine Ketones Negative (Negative) Urine Blood Trace-intact A (Negative) Urine Nitrite Negative (Negative) Urine Bilirubin Negative (Negative) Urine Urobilinogen 0.2 (0.2-1.0) Ur Leukocyte Esterase Negative (Negative) Urine RBC 0-2 (0-2) Urine WBC 2-5 (0-5) Ur Squamous Epith Cells None (None-Few) Urine Bacteria None (None) Urine Opiates Screen (Negative) Ur Buprenorphine Scrn (Negative) Ur Oxycodone Screen (Negative) Urine Methadone Screen (Negative) Ur Barbiturates Screen (Negative) U Tricyclic Antidepress (Negative) Ur Phencyclidine Scrn (Negative) Ur Amphetamines Screen (Negative) U Methamphetamines Scrn (Negative) U Benzodiazepines Scrn (Negative) Urine Cocaine Screen (Negative) U Marijuana (THC) Screen (Negative) Ur Drug Screen Comment Ethyl Alcohol (0.01-0.03) % Lab Acknowledgement Imaging Data CT scan - head: Attestation: I have reviewed the pertinent imaging results. My impression: No acute hemorrhage or trauma or mass Radiologist's impression: Impression: Mild motion degradation. Grossly, no acute abnormality is appreciated. If there is strong clinical concern for acute infarct, MRI would be recommended for further evaluation. Please note that all CT scans at this facility use dose modulation, iterative reconstruction, and/or weight-based dosing when appropriate to reduce radiation dose to as low as reasonably achievable. Dictated by Matthew Figueroa MD @ 04/08/2025 3:43:[address] angio head and neck: Attestation: I have reviewed the pertinent imaging results. My impression: No obvious high vessel blockage Radiologist's impression: Impression: CTA head: No acute abnormality appreciated. CTA neck: No acute abnormality appreciated. Dictated by Matthew Figueroa MD @ 04/08/2025 3:52:49 AM Read by:?Matthew Figueroa MD @04/08/2025 3:53:01 AM ECG Data Attestation: I personally reviewed and interpreted this ECG as follows: Prior ECG tracings: not available for review Interpretation: Sinus rhythm with a rate of 98. [place] interval is slightly prolonged, as is QRS interval suggestive of a mild interventricular block. I do not have a comparison EKG. [place] is normal. Discharge Plan Discharge Clinical Impression: Acute delirium Patient Disposition: Admitted As Observation
[2025-04-08 02:57] LABS: Lactate* 1.7 mmol/L (0.5-1.9)
[2025-04-08 02:58] LABS: Hematocrit 35.3 % (33.0-51.0); Hemoglobin* 11.2 gm/dL (12.0-16.0); Immature Granulocytes Abs Auto 0.02 K/uL (0.00-0.30); Immature Granulocytes Pct Auto 0.2 %; Lymphocytes Absolute Auto 3.55 K/uL (0.90-2.90); Mean Corpuscular HGB Conc 32 gm/dL (32-36); Mean Corpuscular Hemoglobin 32 pg (26-34); Mean Corpuscular Volume 102 fL (80-100); RDW Coefficient of Variation % 11.9 % (11.5-15.5); Red Blood Count 3.46 m/uL (4.00-5.20); White Blood Count* 8.47 K/uL (4.50-11.00)
[2025-04-08 03:09] LABS: Slide Review Reflex No
[2025-04-08 03:13] LABS: Albumin* 4.0 g/dL (3.3-5.0); Chloride* 105 mmol/L (96-114); Sodium* 139 mmol/L (135-149)
[2025-04-08 03:14] LABS: Potassium* 4.1 mmol/L (3.6-5.1)
[2025-04-08 03:16] LABS: Alanine Aminotransferase* 29 U/L (4-35); Anion Gap 7 mEq/L (7-15); Aspartate Amino Transferase* 33 U/L (12-35); Blood Urea Nitrogen* 28 mg/dL (7-30); Carbon Dioxide* 27 mmol/L (20-32); Creatinine* 0.9 mg/dL (0.5-1.5); Estimated Glomerular Filt Rate 68 ml/min; INR 0.91 (0.91-1.10); Prothrombin Time 13.0 Seconds; Total Protein* 6.7 g/dL (6.0-8.3)
[2025-04-08 03:17] LABS: Alkaline Phosphatase* 41 U/L (40-150); Bilirubin Total* 0.3 mg/dL (0.1-1.5); Calcium* 9.6 mg/dL (8.4-10.6); Glucose* 179 mg/dL (60-115)
[2025-04-08 03:20] LABS: Ethanol* < 0.01 % (0.01-0.03)
--- OUTSIDE RECORDS SUMMARY | 2025-04-08 03:20 | XMS_ITS | Clinical Summary ---
Author Organization [facility] Address [address] , [address] [place] [address] Phone Care Team Providers Care Hoisting Engineer Name Role Phone [facility] [place] Unavailable Unava ilable Conditions or Problems Problem Name Problem Code Onset Date Status Entry Date Provider Comment Standard Description Annotate Diabetes mellitus, type II with peripheral neuropathy hide you been worked up for [id number] (SNOMED CT) 08/30 Active 08/30 Jimmy Ruiz MD Peripheral neuropathy due to type 2 diabetes mellitus Neuropathic pain [id number] (SNOMED CT) 08/30 Active 08/30 Jimmy Ruiz MD Neuropathic pain Myalgia of auxiliary muscles, head and neck 31181073 (SNOMED CT) 12/26 Active 12/26 Emili Longo DNP,[facility] Muscle pain Occipital neuralgia, right 99235804 (SNOMED CT) 09/27 Resolved 09/27 Emili Longo DNP,[facility]ISTERED [facility] Cervico-occi pital neuralgia Headache 34848644 (SNOMED CT) 09/04 Resolved 09/04 Jimmy Ruiz MD Headache Headache 31934887 (SNOMED CT) 09/04 Removed 09/04 [facility] Headache Occipital neuralgia, right 97091873 (SNOMED CT) 09/27 Removed 09/27 Emili Longo DNP,[facility]ISTER[facility] Cervico-occi pital neuralgia MIGRAINE 46824620 (SNOMED CT) 10/08 Active 10/08 Emili Longo DNP,REGISTERED [facility] Migraine CERVICAL SPASM 53315681 (SNOMED CT) 09/18 Active 09/18 Emili Longo DNP,[facility] Muscle spasm of head and/or neck MIGRAINE 50179737 (SNOMED CT) 10/08 Correction 10/08 Emili Longo DNP,JOS[facility] MANUEL,[facility] Migraine HEADACHE 40228783 (SNOMED CT) 09/04 Inactive 09/04 Raffi Cardozo MD Headache Medications Medication Instructions Start Date Stop Date Generic Name NDC Provider GABAPENTIN 100 MG CAPS Take 1 capsule by mouth at bedtime ; may increase by 100 mg or 1 capsule per night until 900 mg per night or until pain is controlled whichever comes first. 11/07 gabapentin [id number] Jimmy Ruiz MD GABAPENTIN 100 MG CAPS Take 2 capsule by mouth every morning, and take 3 capsule by mouth every night gabapentin [id number] Jimmy Ruiz MD NORTRIPTYLINE HCL 50 MG CAPS Take 3 capsule by mouth every night Given through PCP for neuropathy and headaches 08/30 nortriptyline [id number] Jimmy Ruiz MD NORTRIPTYLINE HCL 50 MG CAPS Take 2 capsule by mouth every night Given through PCP for neuropathy and headaches nortriptyline [id number] Emili Longo DNP, APRN,[facility] GABAPENTIN 100 MG CAPS Take 1 capsule by mouth at bedtime ; may increase by 100 mg or 1 capsule per night until 900 mg per night or until pain is controlled whichever comes first. 03/02 gabapentin [id number] Jimmy Ruiz MD IMITREX 100 MG TABS TAKE ONE PILL AT THE ONSET OF MIGRAINE; MAY REPEAT X 1 IF NEEDED AFTER 2 HOURS. NO MORE THAN 9 PILLS PER MONTH 01/23 sumatriptan succinate [id number] Emili Longo DNP,JOSÉ MANUEL,[employer] [employer] SUMATRIPTAN SUCCINATE 100 MG TABS TAKE 1 TAB AT ONSET OF HEADACHE. MAY REPEAT IN 2 HOURS IF NEEDED. MAX 9 TABS PER MONTH. sumatriptan succinate [id number] Emili Longo DNP,REGISTERED [facility] [employer] NORTRIPTYLINE HCL 25 MG CAPS 08/29 nortriptyline [id number] Emili Longo DNP,REGISTERED NURSE [facility],[place] NORTRIPTYLINE HCL 50 MG CAPS Take 3 capsule by mouth every night Given through PCP for neuropathy and headaches 08/30 nortriptyline 16961825037 Emili Longo DNP,REGISTERED [facility],[place] [place] ATORVASTATIN CALCIUM 40 MG TABS 1 once a day atorvastatin [id number] Emili Longo DNP,REGISTERED N[facility]SE [facility],[employer] [employer] OZEMPIC (0.25 OR 0.5 MG/DOSE) 2 MG/3ML SOPN semaglutide [id number] Emili Longo DNP,REGISTERED NURSE [facility],[employer] NORTRIPTYLINE HCL 25 MG CAPS 03/02 nortriptyline 72331186908 Emili Longo DNP,REGISTERED [facility],[place] FUROSEMIDE 20 MG TABS furosemide [id number] Emili Longo DNP,REGISTERED NURSE [facility],[employer] IMITREX 100 MG TABS TAKE ONE PILL AT THE ONSET OF MIGRAINE; MAY REPEAT X 1 IF NEEDED AFTER 2 HOURS. NO MORE THAN 9 PILLS PER MONTH 01/23 sumatriptan succinate [id number] Jimmy Ruiz MD NATURE-THROID 113.75 MG TABS THYROID Jimmy Ruiz MD NORTRIPTYLINE HCL 50 MG CAPS Take 2 capsule by mouth every night 08/29 nortriptyline 06476736523 Jimmy Ruiz MD IMITREX 100 MG TABS TAKE ONE PILL AT THE ONSET OF MIGRAINE; MAY REPEAT X 1 IF NEEDED AFTER 2 HOURS. NO MORE THAN 9 PILLS PER MONTH sumatriptan succinate 10675406431 Emili Longo DNP,REGISTERED NURSE [facility],[place] VITAMIN B-12 250 MCG TABS cyanocobalamin (vitamin b-12) 20403387813 Emili Longo DNP,REGISTERED NURSE [facility],[employer] NORTRIPTYLINE HCL 50 MG CAPS Take 2 capsule by mouth every night nortriptyline 16256881548 Raffi Cardozo MD MAGNESIUM OXIDE -MG SUPPLEMENT 250 MG TABS magnesium oxide [id number] Emili Longo [facility],REGISTERED NURSE CARDIOVASCULAR ICU,[place] [place] IMITREX 100 MG TABS Take 100 mg by mouth 12/15 sumatriptan succinate [id number] Raffi Cardozo MD CLARITIN 10 MG TABS loratadine 32833610781 Raffi Cardozo MD TYLENOL ARTHRITIS PAIN 650 MG CR-TABS once a day as needed TYLENOL ARTHRITIS PAIN 650 MG CR-TABS Emili Longo DNP,REGISTERED NURSE C[facility],[place] [place] ATORVASTATIN CALCIUM 20 MG TABS 1 once a day 04/06 atorvastatin 02724449411 Emili Longo DNP,REGISTERED NURSE [facility],[place] VALSARTAN-HYDROC HLOROTHIAZIDE 80-12.5 MG TABS 1 once a day valsartan-hydroch lorothiazide 75317246677 Emili Longo DNP,REGISTERED NURSE [facility],[place] VITAMIN D-3 25 MCG (1000 UT) CAPS cholecalciferol (vitamin d3) 99860080833 Emili Longo [facility],REGISTERED NURSE CARDIOVASCULAR [facility],[place] [place] METOPROLOL SUCCINATE ER 25 MG [id number] TAKE 1 TABLET BY MOUTH EVERY DAY metoprolol succinate [id number] Emili Longo [facility],REGISTERED NURSE CARD[facility]OVASCULAR [facility],[place] [place] METFORMIN HCL 500 MG TABS metformin [id number] Emili Longo [facility],REGISTERED NURSE CARD[facility],[employer] NORTRIPTYLINE HCL 50 MG CAPS TAKE 2 CAPSULES BY MOUTH EVERY EVENING FOR HEADACHES 12/15 nortriptyline 89779046906 Raffi Cardozo MD NORTRIPTYLINE HCL 50 MG CAPS take 2 capsules by mouth every evening for headaches 12/05 NORTRIPTYLINE HCL 60757386900 Raffi Cardozo MD BLACK COHOSH 20 MG ORAL TABLET 05/01 BLACK COHOSH [id number] Emili Longo [facility],REGISTERED NURSE CARD[facility],[place] [place] NORTRIPTYLINE HCL 50 MG CAPS 2 pills every evening for headaches 12/05 NORTRIPTYLINE HCL 50471981342 Emili Longo [facility],REGISTERED NURSE CARD[facility]ASC[facility],[place] [place] ATORVASTATIN CALCIUM 20 MG TABS On e pill daily 12/15 ATORVASTATIN CALCIUM [id number] Emili Longo DNP,REGISTERED NURSE C[facility],[place] VALSARTAN-HYDROC HLOROTHIAZIDE 80-12.5 MG TABS One pill daily 12/15 VALSARTAN-HYDROCH LOROTHIAZIDE [id number] Emili Longo DNP,REGISTERED NURSE [facility],[place] [place] NORTRIPTYLINE HCL 25 MG CAPS TAKE 4 CAPSULES BY MOUTH EVERY NIGHT AT BEDTIME 03/02 NORTRIPTYLINE HCL 03293802711 Raffi Cardozo MD CELEBREX 200 MG CAPS 09/05 CELECOXIB [id number] Emili Longo DNP,REGISTERED NURSE [facility],[place] VALSARTAN 80 MG TABS One pill daily 03/14 VALSARTAN [id number] Emili Longo DNP,REGISTERED NURSE [facility],[place] [place] NORTRIPTYLINE HCL 25 MG CAPS 100 MG Q HS 03/02 NORTRIPTYLINE HCL [id number] Emili Longo DNP,REGISTERED NURSE [facility],[place] [place] NORTRIPTYLINE HCL 25 MG CAPS 75 MG Q HS 03/02 NORTRIPTYLINE HCL 48721871588 Raffi Cardozo MD NORTRIPTYLINE HCL 50 MG CAPS 100 mg PO Q HS 8/09 NORTRIPTYLINE HCL 32804539588 Raffi Cardozo MD NORTRIPTYLINE HCL 25 MG CAPS 25 MG PO QHS as directed for BARRAZA 7 NORTRIPTYLINE HCL 91889368512 Raffi Cardozo MD NORTRIPTYLINE HCL 50 MG CAPS 100 mg PO Q HS 12/05 NORTRIPTYLINE HCL [id number] Raffi Cardozo MD NORTRIPTYLINE HCL 50 MG CAPS 100 mg PO Q HS 12/05 NORTRIPTYLINE HCL 82751691677 Raffi Cardozo MD NORTRIPTYLINE HCL 75 MG CAPS 75 mg PO Q HS 12/05 NORTRIPTYLINE HCL 96292941593 Raffi Cardozo MD NORTRIPTYLINE HCL 50 MG CAPS 100 mg PO Q HS 12/05 NORTRIPTYLINE HCL 77447501780 Emili Longo DNP,REGISTERED NURSE C[facility],[place] [place] TYLENOL ARTHRITIS PAIN 650 MG CR-TABS Daily as needed for arthritis. 12/15 ACETAMINOPHEN [id number] Emili Longo DNP,REGISTERED NURSE C[facility],[place] [place] BLACK COHOSH 20 MG ORAL TABLET 05/01 BLACK COHOSH [id number] Emili Longo DNP,REGISTERED NURSE C[facility],[place] VITAMIN D-3 25 MCG (1000 UT) CAPS 12/15 CHOLECALCIFEROL [id number] Emili Longo DNP,REGISTERED NURSE C[facility],[place] MAGNESIUM OXIDE 250 MG TABS 03/02 MAGNESIUM OXIDE [id number] Emili Longo DNP,REGISTERED NURSE C[facility],[place] VITAMIN B-12 250 MCG TABS 12/15 CYANOCOBALAMIN 34474191514 Emili Longo DNP,REGISTERED NURSE C[facility]ASC[facility],[place] [place] MULTIVITAMINS ORAL CAPSULE MULTIPLE VITAMIN [id number] Emili Longo DNP,REGISTERED NURSE CARD[facility]ASC[facility] NORTRIPTYLINE HCL 10 MG CAPS Take 7 pills every bedtime 08/25 NORTRIPTYLINE HCL [id number] Emili Longo DNP,REGISTERED NURSE C[facility],[place] [place] NORTRIPTYLINE HCL 75 MG CAPS One pill every evening. 12/05 NORTRIPTYLINE HCL [id number] Emili Longo DNP,REGISTERED NURSE C[facility]ASC[facility],[place] [place] AMBIEN 5 MG TABS 10/08 ZOLPIDEM TARTRATE [id number] Emili Longo DNP,REGISTERED NURSE C[facility],[place] [employer] NORTRIPTYLINE HCL 10 MG CAPS Take 7 pills every bedtime 08/28 NORTRIPTYLINE HCL [id number] Emili Longo DNP,REGISTERED NURSE C[facility]ASC[facility],[place] NORTRIPTYLINE HCL 25 MG CAPS 25 MG PO QHS x 1 WEEK, 50 MG PO QHS 03/02 NORTRIPTYLINE HCL 85482447959 Raffi Cardozo MD AMBIEN 5 MG TABS 01/26 ZOLPIDEM TARTRATE 86016606662 Raffi Cardozo MD CELEBREX 200 MG CAPS 09/07 CELECOXIB [id number] Raffi Cardozo MD CLARITIN 10 MG TABS 12/15 LORATADINE [id number] Raffi Cardozo MD FLONASE 50 MCG/ACT NASAL SUSPENSION FLUTICASONE PROPIONATE [id number] Raffi Cardozo MD IMITREX 100 MG TABS TAKE 100 MG PO PRN AT THE ONSET. MAY REPEAT AFTER 2 HOURS. 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 MAY REPEAT AFTER 2 HOURS. MAX 200 MG/DAY``12`0``2015`[facility]*`[id number]`30725`SUMATR IPTAN 100MG Quantity: 18 Tablet Instructions: TAKE [...] Date Detail Appointment 10:00 AM Emili fernandez DNP,REGISTERED NURSE C[facility],[place], [address], [address], [place], [address], Appointment 11:20 AM Jimmy Ruiz MD, [address], [address], [place], [address], Pending order Follow up Pending order Follow [...] Date Entry Date ORDERS [place] [address] [place] [address] Trigger Point Injections 2 CPT-83358 Trigger point inj (3+ musc) CPT-J1100 Dexamethasone -- 10 mg 12/28 CPT-12059 Trigger point inj (3+ musc) CPT-J1100 Dexamethasone -- 10 mg 09/04 [address] [place] [address] Trigger Point Injections 2 [facility]-[id number] Documentation of current medicatio ns ORDERS Patient Instructions ORDERS Follow up CPT-14888 Trigger point inj (3+ musc) CPT-J1100 Dexamethasone -- 10 mg 05/01 [address] [place] [address] Trigger Point Injections 2 024 CPT-19964 Trigger point inj (3+ musc) CPT-J1100 Dexamethasone -- 10 mg 12/26 ORDERS Trigger Point Injections 202 11/22/05 CPT-98264 Trigger point inj (3+ musc) CPT-J1100 Dexamethasone -- 10 mg 09/28 ORDERS Trigger Point Injections 202 10/31/06 CPT-42545 Trigger point inj (3+ musc) CPT-J1100 Dexamethasone -- 10 mg 06/29 ORDERS Trigger Point Injections 202 10/21/16 ORDERS Follow up with Neurologist or [facility] ORDERS Occipital Nerve Bloc k and Trigger Point Injections CPT-J1100 Dexamethasone -- 10 mg 04/06 CPT-37329 Trigger point inj (3+ musc) CPT-72335 Trigger point inj (3+ musc) CPT-J1100 Dexamethasone -- 10 mg 01/12 ORDERS Patient Instructions [facility]-[id number] Documentation of current medicatio ns ORDERS Follow up [facility] in clinic or telemedicine 2 ORDERS Trigger Point Injections 202 10/02/16 CPT-01427 Trigger point inj (3+ musc) CPT-J1100 Dexamethasone -- 10 mg 09/08 CPT-77101 Trigger point inj (3+ musc) CPT-J1100 Dexamethasone -- 10 mg 06/08 ORDERS Trigger Point Injections 202 09/29/24 ORDERS Follow up in clinic ORDERS Patient Instructions [facility]-[id number] Documentation of current medicatio ns ORDERS Patient Instructions CPT-88583 Trigger point inj (3+ musc) CPT-J1100 Dexamethasone -- 10 mg 03/16 ORDERS Trigger Point Injections 09/26/24 CPT-96083 Trigger point inj (3+ musc) ORDERS Trigger Point Injections 202 09/01/03 ORDERS Trigger Point Injections 202 08/29/11 CPT-J1100 Dexamethasone -- 10 mg 09/03 CPT-52072 Trigger point inj (3+ musc) [facility]-[id number] Documentation of current medicatio ns ORDERS Follow up ORDERS Trigger Point Injections 202 08/29/11 CPT-51691 Trigger point inj (3+ musc) CPT-J1100 Dexamethasone -- 10 mg 05/26 CPT-39896 Trigger point inj (3+ musc) CPT-J1100 Dexamethasone -- 10 mg 03/03 ORDERS Trigger Point Injections 202 08/26/11 ORDERS Trigger Point Injections 202 08/23/04 CPT-11484 Trigger point inj (3+ musc) CPT-J1100 Dexamethasone -- 10 mg 12/02 CPT-55271 Trigger point inj (3+ musc) CPT-J1100 Dexamethasone -- 10 mg 08/27 ORDERS Trigger Point Injections 202 ORDERS Trigger Point Injections 202 CPT-44221 Trigger point inj (3+ musc) CPT-J1100 Dexamethasone -- 10 mg 05/27 ORDERS Trigger Point Injections 202 CPT-39135 Trigger point inj (3+ musc) ORDERS Trigger Point Injections 201 05/01/09 CPT-J1100 Dexamethasone -- 10 mg 10/29 CPT-77796 Trigger point inj (3+ musc) CPT-J1100 Dexamethasone -- 10 mg 07/31 CPT-88707 Trigger point inj (3+ musc) CPT-J1100 Dexamethasone -- 10 mg 05/01 ORDERS Follow up CPT-J1100 Dexamethasone -- 10 mg 01/23 CPT-97905 Trigger point inj (3+ musc) ORDERS Follow up CPT-J1100 Dexamethasone -- 10 mg 09/21 CPT-55421 Trigger point inj (3+ musc) CPT-29547 Brief emotional/behavioral assessment 201 04/23/30 ORDERS Follow up [facility]-[id number] Documentation of current medicatio ns CPT-36235 Trigger point inj (3+ musc) CPT-J1100 Dexamethasone -- 10 mg 06/20 ORDERS Other Test CPT-96158 Trigger point inj (3+ musc) CPT-J1100 Dexamethasone -- 10 mg 03/14 [facility]-[id number] Documentation of current medicatio ns ORDERS Follow up ORDERS Follow up CPT-49491 Trigger point inj (3+ musc) CPT-92683 Trigger point inj (3+ musc) CPT-J1100 Dexamethasone -- 10 mg 07/19 [facility]-[id number] Documentation of current medicatio ns ORDERS Follow up CPT-47619 Brief emotional/behavioral assessment 201 02/27/23 CPT-39153 Trigger point inj (3+ musc) ORDERS Follow up [facility]-[id number] Documentation of current medicatio ns CPT-14057 Trigger point inj (3+ musc) CPT-J1100 Dexamethasone -- 10 mg 01/11 [facility]-[id number] Documentation of current medicatio ns CPT-76038 Trigger point inj (3+ musc) CPT-J1100 Dexamethasone -- 10 mg 10/12 ORDERS Follow up ORDERS Follow up [facility]-[id number] Documentation of current medicatio ns SCT-[id number] Documentation of current medicatio ns CPT-76830 Occipital nerve block x1 201 02/01/05 CPT-08059 Trigger point inj (3+ musc) CPT-J1100 Dexamethasone -- 10 mg 07/27 ORDERS Follow up [facility]-[id number] Documentation of current medicatio ns SCT-[id number] Documentation of current medicatio ns CPT-94707 Brief emotional/behavioral assessment 201 01/31/14 [facility]-[id number] Documentation of current medicatio ns ORDERS Follow up [facility]CT-[id number] Documentation of current medicatio ns CPT-27928 Trigger point inj (3+ musc) CPT-J1100 Dexamethasone - 5 mg ORDERS Follow up [facility]-[id number] Documentation of current medicatio ns SCT-[id number] Documentation of current medicatio ns ORDERS Follow up ORDERS Follow up CPT-40264 MRI Brain W/O Vital Signs Date Name [...]
[2025-04-08] MEDS: HYDROCODONE-ACETAMIN 5-325 MG 1 TAB PO (03:55)
[2025-04-08 05:32] LABS: Appearance Urine Cloudy (Clear)
[2025-04-08 05:36] LABS: Cannabinoid Screen Urine Negative (Negative); Methamphetamines Screen Urine Negative (Negative); Tricyclic Antidepressant Urine POSITIVE (Negative)
--- NOTE | 2025-04-08 12:03 | ED.NURSE ---
1000ml urine emptied from champagne.
--- NOTE | 2025-04-08 12:08 | ED.NURSE ---
call from Pt sister, updated briefly, Pt family will be here to visit.
--- NOTE | 2025-04-08 14:40 | PM.IMHP1 ---
Assessment and Plan Assessment and plan (1) Acute delirium: Problem comment: -will obtain MR brain when tech is available. -starting taper of the TCA and gabapentin -monitor vitals and for signs of infection Status: Acute (2) Orthostatic hypotension: Problem comment: significant drop from 165 --> 82. consider further workup as her lactate, BUN, ketones were all unremarkable in her initial workup. Status: Acute (3) Cognitive decline: Problem comment: -baseline MoCa will be helpful -outpatient neuropysch testing as well. Status: Acute (4) Peripheral neuropathy: Problem comment: gabapentin and TCA use Status: Acute (5) Chronic migraine: Problem comment: gabapentin, nortriptyline, sumatriptan on her med list. Status: Acute (6) At risk for polypharmacy: Problem comment: The 150mg of nortriptyline certainly have me concerned. Taper will be needed. Will also use smaller doses of her gabapentin. Status: Acute (7) HTN (hypertension): Problem comment: continue metoprolol Status: Acute (8) Type 2 diabetes mellitus, without long-term current use of insulin: Problem comment: well managed on metformin and ozempic (will question length and dose) a1c 6.3 Status: Acute Hospitalist- H&P: HPI History of Present Illness Date Seen: 04/08/25 Chief complaint: Stroke Narrative: ADMISSION HISTORY AND PHYSICAL - HOSPITALIST Chief Complaint: fall at home/AMS HPI: 74-year-old white female with a history of type 2 diabetes, not on insulin, hypertension, chronic neuropathic foot pain and chronic migraines on high doses of TCA presents after a fall in the kitchen and acute delirium. Patient lives with her sister and her grandson. She remembers not feeling great yesterday. By report her friend said that she took a longer than usual nap after going to the movies with her. She said which is not usual she slept during the movie and took a 2 hour nap after the movies. Patient reports taking her medicine last night but feeling ill in vomiting up her medication. She did not read dose. She then remembers wanting a drink of water in the middle of the night so she got up and that is the last she really remembers until waking up in the emergency room. Apparently she fell injuring her left knee may be bumping her head but she was found and heard right away as the grandson went to see what noise was. She was unable to help herself for follow commands they called EMS. For EMS they were concerned about acute stroke with some facial droop and and left-sided weakness. She would intermittently slur her words. She was picking at insects that were not there. Not combative or agitated. Altered. Initial workup did not show evidence of an hemorrhagic stroke although brain MRI is still pending. Her lab workup was reassuring. Her vital signs were all reassuring. In review of her home medications it does note that she takes 150 mg of nortriptyline each night. This is apparently for peripheral neuropathy chronic pain syndrome as well as chronic headaches. She also takes gabapentin. She is a type 2 diabetic but her blood sugars were in the 180s. She does not take insulin. Her family does report concerns regarding short-term memory loss to a mild extent over the last few months. ER COURSE: CTA, neck CT, head CT all unremarkable CODE STATUS: full code PCP: Shima Posey at [facility] EMERGENCY CONTACT PLAN: sister Lester I've updated the PFSH, medications and allergies in the [facility] tabs. INVESTIGATIONS: LABS/MICRO/ECG/IMAGING CBC reviewed with a MCV of 102. Platelet count is normal. No elevation in her white blood cell count. Hemoglobin 11.2 INR is normal Basic chemistries including lactate and LFTs are all normal. CRP is not elevated. Troponin undetectable Urine is unremarkable Toxicology screen is unremarkable except for the known intake of TCA Alcohol is undetectable REVIEW OF SYSTEMS: 12-point ROS completed with patient and negative unless otherwise stated in HPI or below. PHYSICAL EXAM: CONSTITUTIONAL: a bit forgetful. no details from last night. appears comfortable. is able to make needs known. GENERAL: Well-developed and above ideal body weight, in no respiratory distress. VITAL SIGNS: see record. HEENT: Sclerae are anicteric. No petechiae. CARDIAC: rhythm is regular. There is no S3 or rub. No harsh murmurs. Extremities show trace edema with symmetrical pulses. PULM: good air entry with no wheeze. NEURO: Speech is fluent. A brief neurologic exam is negative. SKIN: No rashes, petechiae, concerning changes PSYCHIATRIC: Euthymic. ADMIT TO MEDSURG: FLOOR CARE DVT: Lovenox GI: PO intake Time spent: Today I spent 75 minutes seeing the patient, discussing the patient with ER staff, reviewing [facility] and [facility] notes/diagnostics, discussing the care plan with our care time that includes social work, PT/OT, pharmacy, RT, assisted and documenting my impressions and plan in the medical record. Medical Decision Making Medical Decision Making Has patient completed a Health Care Directive: Yes [facility] Medical History (Updated 04/08/25 @ 15:44 by Rebekah Welch MD) Type 2 diabetes mellitus, without long-term current use of insulin ?E11.9 - Type 2 diabetes mellitus without complications (ICD-10) Bladder dysfunction ?N31.9 - Neuromuscular dysfunction of bladder, unspecified (ICD-10) Hyperlipidemia ?E78.5 - Hyperlipidemia, unspecified (ICD-10) Migraine ?G43.909 - Migraine, unspecified, not intractable, without status migrainosus (ICD-10) Anemia associated with acute blood loss ?D62 - Acute posthemorrhagic anemia (ICD-10) Sleep apnea ?G47.30 - Sleep apnea, unspecified (ICD-10) Osteoarthritis of knee ?M17.9 - Osteoarthritis of knee, unspecified (ICD-10) Obesity ?E66.9 - Obesity, unspecified (ICD-10) HTN (hypertension) ?I10 - Essential (primary) hypertension (ICD-10) DJD (degenerative joint disease) ?M19.90 - Unspecified osteoarthritis, unspecified site (ICD-10) Surgical History (Updated 04/08/25 @ 03:33 by Iliana Benavidez RN) H/O dilation and curettage ?Z98.890 - Other specified postprocedural states (ICD-10) H/O hernia repair ?Z98.890 - Other specified postprocedural states (ICD-10) ?Z87.19 - Personal history of other diseases of the digestive system (ICD-10) S/P gastric bypass ?Z98.84 - Bariatric surgery status (ICD-10) Social History What is your current living situation?: I presently have a place to live Problems where you live: no known problems In the past 12 months, utilities in danger of being shut off: no In past 12 months, lack of transportation kept you from medical appts, meetings, work, or getting things needed for daily living: no In the past 12 mos, have been you worried that your food would run out before you had money to buy more?: never true In the past 12 mos, the food you bought just didn't last and you didn't have money to buy more?: never true Smoking Status: Never smoker Do you use any of these nicotine containing products: None Second hand tobacco smoke exposure: No How often do you have a drink containing alcohol: never How often do you have six or more drinks on one occasion: Never AUDIT-C Alcohol total score: 0 Non-prescribed substance use: denies use Caffeine: Yes How often does anyone, including family, friends and others, physically hurt you: never How often does anyone, including family, friends and others, insult or talk down to you: never How often does anyone, including family, friends and others, threaten you with harm: never How often does anyone, including family, friends and others, scream or curse at you: never service: No Meds Home Medications and Allergies Home Medications ?Medication ?Instructions ?Recorded ?Confirmed ?Type metformin 500 mg tablet 1,000 mg PO BID 10/05/23 04/08/25 History metoprolol succinate 25 mg 25 mg PO DAILY 10/05/23 10/05/23 History tablet,extended release 24 hr semaglutide 0.25 mg or 0.5 mg (2 mg subcut 10/05/23 History mg/3 mL) subcutaneous pen injector (Ozempic) atorvastatin 40 mg tablet 40 mg PO DAILY 04/08/25 04/08/25 History fluticasone propionate 50 intranasal 04/08/25 History mcg/actuation nasal spray,suspension gabapentin 100 mg capsule 200 - 300 mg PO BID 04/08/25 04/08/25 History nortriptyline 50 mg capsule 150 mg PO HS 04/08/25 04/08/25 History sumatriptan succinate 100 mg tablet 100 mg PO DIRECTED PRN 04/08/25 04/08/25 History Allergies Allergy/AdvReac Type Severity Reaction Status Date / Time bee venom protein (honey bee) Allergy Unknown Verified 04/08/25 03:11 Sulfa (Sulfonamide Allergy Unknown Verified 04/08/25 03:11 Antibiotics) Exam Const: Vital Signs, click to edit/add: Vital Signs - 24 hr 04/08/25 02:41 04/08/25 03:12 04/08/25 03:13 Temperature 96.8 F L Pulse Rate 97 98 Pulse Rate [Left P ulse Oximeter] 83 Pulse Rate [Pulse Oximeter] Respiratory Rate 20 13 Blood Pressure 173/91 H Blood Pressure [Le ft Arm] Blood Pressure [Le ft Upper Arm] 134/98 H Pulse Oximetry 96 99 99 Oxygen Delivery [facility] Room Air 04/08/25 03:16 04/08/25 03:17 04/08/25 03:30 Temperature Pulse Rate 92 91 100 Pulse Rate [Left P ulse Oximeter] Pulse Rate [Pulse Oximeter] Respiratory Rate 33 H Blood Pressure 158/91 H Blood Pressure [Le ft Arm] Blood Pressure [Le ft Upper Arm] Pulse Oximetry 93 99 98 Oxygen Delivery [facility] 04/08/25 03:31 04/08/25 03:45 04/08/25 03:47 Temperature Pulse Rate 101 H 100 101 H Pulse Rate [Left P ulse Oximeter] Pulse Rate [Pulse Oximeter] Respiratory Rate 20 19 Blood Pressure 182/95 H 178/110 H Blood Pressure [Le ft Arm] Blood Pressure [Le ft Upper Arm] Pulse Oximetry 93 97 97 Oxygen Delivery [facility] 04/08/25 04:00 04/08/25 04:02 04/08/25 04:15 Temperature Pulse Rate 101 H 96 105 H Pulse Rate [Left P ulse Oximeter] Pulse Rate [Pulse Oximeter] Respiratory Rate 32 H 29 H Blood Pressure 196/158 H Blood Pressure [Le ft Arm] Blood Pressure [Le ft Upper Arm] Pulse Oximetry 97 97 98 Oxygen Delivery [facility] 04/08/25 04:20 04/08/25 04:21 04/08/25 04:30 Temperature Pulse Rate 102 H 103 H Pulse Rate [Left P ulse Oximeter] Pulse Rate [Pulse Oximeter] Respiratory Rate 27 H Blood Pressure Blood Pressure [Le ft Arm] Blood Pressure [Le ft Upper Arm] Pulse Oximetry 97 98 97 Oxygen Delivery [facility] 04/08/25 04:34 04/08/25 04:45 04/08/25 05:00 Temperature Pulse Rate 105 H 105 H 106 H Pulse Rate [Left P ulse Oximeter] Pulse Rate [Pulse Oximeter] Respiratory Rate 21 20 Blood Pressure Blood Pressure [Le ft Arm] Blood Pressure [Le ft Upper Arm] Pulse Oximetry 97 96 96 Oxygen Delivery [facility] 04/08/25 05:15 04/08/25 05:20 04/08/25 05:31 Temperature Pulse Rate 93 92 89 Pulse Rate [Left P ulse Oximeter] Pulse Rate [Pulse Oximeter] Respiratory Rate 17 Blood Pressure 151/86 H 144/79 H Blood Pressure [Le ft Arm] Blood Pressure [Le ft Upper Arm] Pulse Oximetry 97 96 95 Oxygen Delivery [facility] 04/08/25 05:45 04/08/25 06:00 04/08/25 06:01 Temperature Pulse Rate 89 88 88 Pulse Rate [Left P ulse Oximeter] Pulse Rate [Pulse Oximeter] Respiratory Rate 16 Blood Pressure 134/75 Blood Pressure [Le ft Arm] Blood Pressure [Le ft Upper Arm] Pulse Oximetry 93 95 93 Oxygen Delivery [facility] 04/08/25 06:15 04/08/25 06:30 04/08/25 06:31 Temperature Pulse Rate 88 88 87 Pulse Rate [Left P ulse Oximeter] Pulse Rate [Pulse Oximeter] Respiratory Rate 11 L 12 Blood Pressure 142/85 H Blood Pressure [Le ft Arm] Blood Pressure [Le ft Upper Arm] Pulse Oximetry 94 95 96 Oxygen Delivery [facility] 04/08/25 06:32 04/08/25 06:45 04/08/25 07:00 Temperature Pulse Rate 88 88 89 Pulse Rate [Left P ulse Oximeter] Pulse Rate [Pulse Oximeter] Respiratory Rate 11 L Blood Pressure Blood Pressure [Le ft Arm] Blood Pressure [Le ft Upper Arm] Pulse Oximetry 96 96 96 Oxygen Delivery [facility] 04/08/25 07:01 04/08/25 07:02 04/08/25 07:15 Temperature Pulse Rate 89 90 88 Pulse Rate [Left P ulse Oximeter] Pulse Rate [Pulse Oximeter] Respiratory Rate 12 10 L 10 L Blood Pressure 147/90 H Blood Pressure [Le ft Arm] Blood Pressure [Le ft Upper Arm] Pulse Oximetry 95 97 96 Oxygen Delivery [facility] Room Air 04/08/25 07:30 04/08/25 07:31 04/08/25 07:45 Temperature Pulse Rate 98 97 97 Pulse Rate [Left P ulse Oximeter] Pulse Rate [Pulse Oximeter] Respiratory Rate 9 L 16 17 Blood Pressure Blood Pressure [Le ft Arm] Blood Pressure [Le ft Upper Arm] Pulse Oximetry 100 97 100 Oxygen Delivery [facility] 04/08/25 08:00 04/08/25 08:01 04/08/25 08:15 Temperature Pulse Rate 95 95 93 Pulse Rate [Left P ulse Oximeter] Pulse Rate [Pulse Oximeter] Respiratory Rate 10 L 9 L 9 L Blood Pressure 172/99 H Blood Pressure [Le ft Arm] Blood Pressure [Le ft Upper Arm] Pulse Oximetry [address] [facility] 04/08/25 08:30 04/08/25 08:31 04/08/25 08:45 Temperature Pulse Rate 92 93 92 Pulse Rate [Left P ulse Oximeter] Pulse Rate [Pulse Oximeter] Respiratory Rate 8 L 8 L 10 L Blood Pressure 160/101 H Blood Pressure [Le ft Arm] Blood Pressure [Le ft Upper Arm] Pulse Oximetry [address] [facility] Room Air 04/08/25 09:00 04/08/25 09:01 04/08/25 09:15 Temperature Pulse Rate 92 92 92 Pulse Rate [Left P ulse Oximeter] Pulse Rate [Pulse Oximeter] Respiratory Rate 10 L 9 L 7 L Blood Pressure 159/92 H Blood Pressure [Le ft Arm] Blood Pressure [Le ft Upper Arm] Pulse Oximetry [address] [facility] 04/08/25 09:30 04/08/25 09:31 04/08/25 09:45 Temperature Pulse Rate 108 H 90 90 Pulse Rate [Left P ulse Oximeter] Pulse Rate [Pulse Oximeter] Respiratory Rate 10 L 9 L 6 L Blood Pressure 167/98 H Blood Pressure [Le ft Arm] Blood Pressure [Le ft Upper Arm] Pulse Oximetry [address] [facility] 04/08/25 10:00 04/08/25 10:01 04/08/25 10:15 Temperature Pulse Rate 89 90 89 Pulse Rate [Left P ulse Oximeter] Pulse Rate [Pulse Oximeter] Respiratory Rate 0 L 7 L 7 L Blood Pressure 168/101 H Blood Pressure [Le ft Arm] Blood Pressure [Le ft Upper Arm] Pulse Oximetry [address] [facility] 04/08/25 10:30 04/08/25 10:31 04/08/25 10:37 Temperature Pulse Rate 102 H 104 H 93 Pulse Rate [Left P ulse Oximeter] Pulse Rate [Pulse Oximeter] Respiratory Rate 26 H 23 12 Blood Pressure 162/123 H 172/94 H Blood Pressure [Le ft Arm] Blood Pressure [Le ft Upper Arm] Pulse Oximetry 84 L 95 99 Oxygen Delivery [facility] 04/08/25 10:45 04/08/25 11:00 04/08/25 11:01 Temperature Pulse Rate 90 88 88 Pulse Rate [Left P ulse Oximeter] Pulse Rate [Pulse Oximeter] Respiratory Rate 11 L 10 L 10 L Blood Pressure 147/86 H Blood Pressure [Le ft Arm] Blood Pressure [Le ft Upper Arm] Pulse Oximetry 98 98 98 Oxygen Delivery [facility] 04/08/25 11:15 04/08/25 11:30 04/08/25 11:31 Temperature Pulse Rate 88 86 86 Pulse Rate [Left P ulse Oximeter] Pulse Rate [Pulse Oximeter] Respiratory Rate 9 L 10 L 9 L Blood Pressure 145/86 H Blood Pressure [Le ft Arm] Blood Pressure [Le ft Upper Arm] Pulse Oximetry 98 98 97 Oxygen Delivery [facility] Room Air 04/08/25 11:45 04/08/25 12:07 Temperature 96.9 F L Pulse Rate Pulse Rate [Left P ulse Oximeter] Pulse Rate [Pulse Oximeter] 86 Respiratory Rate 20 20 Blood Pressure Blood Pressure [Le ft Arm] 147/94 H Blood Pressure [Le ft Upper Arm] Pulse Oximetry 97 Oxygen Delivery [facility] Hospitalist - H&P: Result Labs Labs: Short CBC 04/08/25 Range/Units 02:40 WBC 8.47 (4.50-11.00) K/uL Hgb 11.2 L (12.0-16.0) gm/dL Hct 35.3 (33.0-51.0) % Plt Count 287 (140-440) K/uL BMP 04/08/25 02:40 Sodium 139 Potassium 4.1 Chloride 105 Carbon Dioxide 27 BUN 28 Creatinine 0.9 Glucose 179 H Calcium 9.6 Cardiac Enzymes 04/08/25 Range/Units 02:40 Troponin I < 0.01 (0.01-0.04) ng/mL Liver Function 04/08/25 Range/Units 02:40 Total Bilirubin 0.3 (0.1-1.5) mg/dL AST 33 (12-35) U/L ALT 29 (4-35) U/L Alkaline Phosphatase 41 (40-150) U/L Albumin 4.0 (3.3-5.0) g/dL Urine 04/08/25 Range/Units 05:20 Urine Color Yellow (Yellow) Urine Appearance Cloudy A (Clear) Urine pH 5.5 (5.0-8.5) Ur Specific [place] 1.010 (1.000-1.030) Urine Protein Negative (Negative) Urine Glucose (UA) Negative (Negative)
--- NOTE | 2025-04-08 15:56 | CRLHL7_ITS ---
For Patients: As a result of the Cures Act, medical imaging exams and procedure reports are released immediately into your electronic medical record. You may view this report before your referring provider. If you have questions, please contact your health care provider. Indication: Fall. Left knee pain, swelling. Technique: Two views of the left knee. Comparison: None available. Findings/Impression: Postsurgical changes of left total knee arthroplasty with patellar resurfacing. No acute periprosthetic fracture identified. Trace joint effusion, and edema within the infrapatellar fat pad. Vascular calcifications are noted. Dictated by Bea Duncan MD @ 04/08/2025 5:04:36 PM (Electronically Signed)
--- NOTE | 2025-04-08 15:56 | CRLHL7_ITS ---
For Patients: As a result of the Century Cures Act, medical imaging exams and procedure reports are released immediately into your electronic medical record. You may view this report before your referring provider. If you have questions, please contact your health care provider. INDICATION: Orthostatic hypotension TECHNIQUE: Single-view chest. COMPARISON: No comparison FINDINGS: The lungs are clear. The heart, mediastinum and pulmonary vessels are of normal size. There is no evidence of pleural disease. IMPRESSION: Negative chest. Dictated by Maribel Davenport MD @ 04/08/2025 4:55:08 PM (Electronically Signed)
[2025-04-08] MEDS: 0.9 % SODIUM CHLORIDE 500 ML 500 ML IV ×2 (16:56→20:07)
--- NOTE | 2025-04-08 17:36 | PC.NURSE ---
[id number]: Pt. AOx4. Pt. hypotensive w/ standing; bolus given- see EMAR. Pt. tolerating food & fluids. Pt. rates L leg pain moderate to severe pain. Velez in place. Family bedside & supportive.
[2025-04-08] MEDS: METFORMIN 500 MG TABLET 1000 MG PO (17:57)
--- NOTE | 2025-04-08 19:29 | PC.NURSE ---
Patients vitals assessed at admission, slight left sided facial droop, bilat legs/hands/arms equal in strength. Patient and alert and oriented to self and situation however states she does not remember the events leading up to admission. Facial droop has resolved at this time. Neuros appear baseline. Left knee swollen and patient states she has pain with movement in that leg. Xray obtained. Ice and elevation to manage pain. C/o dizziness when standing, difficulty with pivot to BSC due to left knee pain.
[2025-04-08] MEDS: ENOXAPARIN 40 MG/0.4 ML INJ SUBCUT (20:59)
[2025-04-08] MEDS: INSULIN ASPART 100 UNIT/ML SUBCUT (20:59)
[2025-04-08] MEDS: GABAPENTIN 100 MG CAPSULE PO (21:00)
[2025-04-08] MEDS: NORTRIPTYLINE HCL 25 MG CAPSULE 50 MG PO (21:01)
--- NOTE | 2025-04-08 22:29 | P.CCN_ITS ---
Subjective Subjective Interval history: Nursing staff reported Sheila's knee was painful making it difficult for her to stand. Also her orthostatic VS revealed symptomatic orthostatic hypotension. Dr. Welch was still here and ordered an IVF bolus and asked me to order a CXR, knee films and follow up on these (the results are below). Symptomatic orthostatic hypotension has persisted after the 1st fluid bolus, so I gave a 2nd 500 mL fluid bolus. Notably her blood pressures in a supine position are elevated and she is not dizzy at that time. I also note this evening that her heart rates are elevated. Her telemetry is showing sinus tachycardia. Have obtained in EKG to look into this further. Objective Objective Data Details: EKG: Normal sinus rhythm, 96 beats per minute, normal EKG. QRS is 112 mill iseconds. Assessment and Plan Assessment and plan (1) On tricyclic antidepressant therapy: Problem comment: - I am concerned about the possibility of unintentional TCA poisoning or overdose. It is possible that she is having symptoms of TCA poisoning even if she took only her usual dose as it may need to be decreased as she ages. Another possibility is that she unintentionally took one or more extra doses and was not aware of what she was doing in this regard due to recent cognitive decline. The symptoms of orthostatic hypotension, tachycardia, and delirium could be consistent with this. I will hold her TCA for now and continue supportive care. QRS is currently 112ms, no abnormal morphology of the QRS waves noted, no abnormal R to S ration in aVR, no ventricular arrythmias seen. Continue to monitor on telemetry and recheck EKG in the morning. Will give IVF boluses if hypotensive when supine or sitting. Ambulate with assistance. Status: Acute
[2025-04-09] VITALS (10 sets, daily range): BP systolic 113–173; BP diastolic 68–101; PULSE 87–120; RESP 16; TEMP 36.4–37.3; O2SAT 94–99
--- NOTE | 2025-04-09 04:59 | PC.NURSE ---
Shift note: Patient has been in bed most of the night. She has difficulty bearing weight on the left leg due to knee pain. Velez intact and draining clear light brant color urine. She made 2 attempt for bowel but got nothing. A2 pelvic transfer to C. Patient adequate sleep. Vitally stable. No fall attempt this shift. Patient continuous video monitoring.
[2025-04-09 06:28] LABS: Hematocrit 32.7 % (33.0-51.0); Hemoglobin* 10.4 gm/dL (12.0-16.0); Immature Granulocytes Abs Auto 0.01 K/uL (0.00-0.30); Immature Granulocytes Pct Auto 0.1 %; Lymphocytes Absolute Auto 3.02 K/uL (0.90-2.90); Mean Corpuscular HGB Conc 32 gm/dL (32-36); Mean Corpuscular Hemoglobin 33 pg (26-34); Mean Corpuscular Volume 103 fL (80-100); RDW Coefficient of Variation % 12.2 % (11.5-15.5); Red Blood Count 3.19 m/uL (4.00-5.20); White Blood Count* 8.76 K/uL (4.50-11.00)
[2025-04-09 06:35] LABS: Slide Review Reflex No
[2025-04-09 06:50] LABS: Albumin* 3.7 g/dL (3.3-5.0); Chloride* 105 mmol/L (96-114); Potassium* 3.7 mmol/L (3.6-5.1); Sodium* 139 mmol/L (135-149)
[2025-04-09 06:53] LABS: Anion Gap 5 mEq/L (7-15); Blood Urea Nitrogen* 19 mg/dL (7-30); Carbon Dioxide* 29 mmol/L (20-32); Creatinine* 0.9 mg/dL (0.5-1.5); Estimated Glomerular Filt Rate 68 ml/min
[2025-04-09 06:54] LABS: Calcium* 9.1 mg/dL (8.4-10.6); Glucose* 106 mg/dL (60-115)
[2025-04-09] MEDS: METFORMIN 500 MG TABLET 1000 MG PO ×2 (07:52→17:34)
[2025-04-09] MEDS: METOPROLOL SUCCINATE (XL) 25 MG TAB PO (08:55)
[2025-04-09] MEDS: GABAPENTIN 100 MG CAPSULE PO ×2 (08:55→20:15)
[2025-04-09] MEDS: ATORVASTATIN CALCIUM 40 MG TABLET PO (08:56)
[2025-04-09] MEDS: SODIUM CHLORIDE 0.9 % (FLUSH) 10 ML SYRINGE 5 ML IVF (08:56)
--- NOTE | 2025-04-09 10:17 | CRLHL7_ITS ---
For Patients: As a result of the Century Cures Act, medical imaging exams and procedure reports are released immediately into your electronic medical record. You may view this report before your referring provider. If you have questions, please contact your health care provider. Indication: Altered mental status. Technique: Multiplanar, multisequence MRI of the brain was performed without intravenous contrast. Comparison: CT head 04/08/2025. Findings: The corpus callosum in clivus appear intact. Partly empty sella morphology. Mild degenerative change visualized upper cervical spine. There is no restricted diffusion. No intracranial hemorrhage. The ventricles are proportionate to the cerebral sulci. The 4th ventricle appears midline. The basal cisterns appear patent. No abnormal extra-axial fluid collection identified. There is no intracranial mass, abnormal mass-effect or midline shift identified. Mild parenchymal volume loss. Scattered T2 FLAIR hyperintense foci within the subcortical and periventricular white matter, favored to represent chronic ischemic microvascular disease. Major intracranial vascular flow voids appear grossly intact. Both globes are preserved. Mild paranasal sinus mucosal disease. Impression: 1. No acute intracranial process. 2. Mild chronic ischemic microvascular disease. Dictated by Herb Polk MD @ 04/09/2025 12:00:11 PM (Electronically Signed)
--- NOTE | 2025-04-09 14:04 | PM.IMPN1 ---
Assessment and Plan Assessment and plan (1) Acute delirium: Problem comment: -MR normal for age -starting taper of the TCA and gabapentin (TCA 25mg on evening of 04/08) -monitor vitals and for signs of infection Status: Acute (2) On tricyclic antidepressant therapy: Problem comment: -the dose of this medication is high in her age group and her cognitive decline may lead to accidental OD. will taper her off this medication. I will hold her TCA for now and continue supportive care. QRS is currently 112ms, no abnormal morphology of the QRS waves noted, no abnormal R to S ration in aVR, no ventricular arrythmias seen. Continue to monitor on telemetry and recheck EKG in the morning. Will give IVF boluses if hypotensive when supine or sitting. Ambulate with assistance. Status: Acute (3) Orthostatic hypotension: Problem comment: significant drop: 04/08/25 165 --> 82; pulse 104 -> 134 04/09/25 173 -> 123; pulse 96 -> 120 part volume depletion; part TCA OD? or other polypharmacy and/or administration use consider further workup as her lactate, BUN, ketones were all unremarkable in her initial workup. -echo last done in 2019 - nml other than volume depletion. awaiting for study. Status: Acute (4) Cognitive decline: Problem comment: -MoCA ([place] Cognitive Assessment) -outpatient neuropysch testing as well. Status: Acute (5) Chronic migraine: Problem comment: gabapentin, nortriptyline, sumatriptan on her med list. -we will work to wean and transition for other options for her Status: Acute (6) Peripheral neuropathy: Problem comment: gabapentin and TCA use Status: Acute (7) At risk for polypharmacy: Problem comment: The 150mg of nortriptyline certainly have me concerned. Taper will be needed. Will also use smaller doses of her gabapentin. Status: Acute (8) HTN (hypertension): Problem comment: continue metoprolol Status: Acute (9) Type 2 diabetes mellitus, without long-term current use of insulin: Problem comment: well managed on metformin and ozempic (will question length and dose) a1c 6.3 Status: Acute Subjective Date Seen: 04/09/25 Interval history: Daily Progress Note - Hospital Medicine Day #: 2 CC: AMS, TCA OD vs too high of dose. 24 HOUR UPDATE: seems better than yesterday. No obvious delirium; she does repeat herself during our chat. Notable Labs, Micro, Rads, Interventions: Objective: alert, mildly confused Vitals: see above Lungs: Clear. Cardiac: S1S2. Disposition/Potential discharge - home with sister Today I spent 50minutes seeing the patient, reviewing Expanse and EPIC notes/diagnostics, discussing the care plan with our care time that includes social work, PT/OT, pharmacy, RT, senior care and documenting my impressions and plan in the medical record. Exam Const: Vital Signs, click to edit/add: Vital Signs - 24 hr 04/08/25 14:41 04/08/25 15:00 04/08/25 15:28 Temperature 98 F Pulse Rate Pulse Rate [Pulse Oximeter] 88 120 H Pulse Rate [Right Pulse Oximeter] 84 Pulse Rate [orthos tatic lying] 84 Pulse Rate [orthos tatic sitting] 95 Pulse Rate [orthos tatic standing] Respiratory Rate 16 Blood Pressure [Le ft Arm] 165/87 H Blood Pressure [Ri ght Arm] Blood Pressure [or thostatic lying] 165/87 H Blood Pressure [or thostatic sitting] 167/97 H Blood Pressure [or thostatic standing ] 82/53 L Pulse Oximetry 99 Oxygen Delivery Me thod Room Air 04/08/25 16:44 04/08/25 18:46 04/08/25 19:30 Temperature 99.3 F Pulse Rate 94 Pulse Rate [Pulse Oximeter] Pulse Rate [Right Pulse Oximeter] 109 H Pulse Rate [orthos tatic lying] 104 H Pulse Rate [orthos tatic sitting] 123 H Pulse Rate [orthos tatic standing] 134 H Respiratory Rate 16 Blood Pressure [Le ft Arm] 148/89 H Blood Pressure [Ri ght Arm] Blood Pressure [or thostatic lying] 145/76 H Blood Pressure [or thostatic sitting] 109/86 Blood Pressure [or thostatic standing ] 76/59 L Pulse Oximetry 100 Oxygen Delivery Me thod Room Air 04/08/25 22:41 04/08/25 22:41 04/08/25 23:00 Temperature 98.4 F Pulse Rate 100 Pulse Rate [Pulse Oximeter] Pulse Rate [Right Pulse Oximeter] 98 98 Pulse Rate [orthos tatic lying] Pulse Rate [orthos tatic sitting] Pulse Rate [orthos tatic standing] Respiratory Rate 16 16 Blood Pressure [Le ft Arm] 131/74 Blood Pressure [Ri ght Arm] Blood Pressure [or thostatic lying] Blood Pressure [or thostatic sitting] Blood Pressure [or thostatic standing ] Pulse Oximetry 99 Oxygen Delivery Me thod Room Air 04/09/25 03:00 04/09/25 07:20 04/09/25 07:31 Temperature 97.5 F L 98.1 F Pulse Rate 104 H Pulse Rate [Pulse Oximeter] 103 H Pulse Rate [Right Pulse Oximeter] 99 Pulse Rate [orthos tatic lying] Pulse Rate [orthos tatic sitting] Pulse Rate [orthos tatic standing] Respiratory Rate 16 16 Blood Pressure [Le ft Arm] 134/72 Blood Pressure [Ri ght Arm] 137/74 Blood Pressure [or thostatic lying] Blood Pressure [or thostatic sitting] Blood Pressure [or thostatic standing ] Pulse Oximetry 95 [address] [address] [facility] 04/09/25 07:31 04/09/25 09:00 04/09/25 11:54 Temperature 99.2 F Pulse Rate Pulse Rate [Pulse Oximeter] 103 H 91 Pulse Rate [Right Pulse Oximeter] Pulse Rate [orthos tatic lying] 96 Pulse Rate [orthos tatic sitting] 99 Pulse Rate [orthos tatic standing] 120 H Respiratory Rate 16 16 Blood Pressure [Le ft Arm] Blood Pressure [Ri ght Arm] 137/77 Blood Pressure [or thostatic lying] 173/101 H Blood Pressure [or thostatic sitting] 126/76 Blood Pressure [or thostatic standing ] 123/84 Pulse Oximetry [facility] Labs Labs: Laboratory Results - last 24 hr 04/09/25 05:40 WBC 8.76 RBC 3.19 L Hgb 10.4 L Hct 32.7 L MCV 103 H MCH 33 MCHC 32 RDW Coeff of Kain 12.2 Plt Count 274 Neut % (Auto) 55.4 Lymph % (Auto) 34.5 Prentiss % (Auto) 7.1 Eos % (Auto) 2.3 Baso % (Auto) 0.6 Neut # (Auto) 4.86 Lymph # (Auto) 3.02 H Prentiss # (Auto) 0.60 Eos # (Auto) 0.20 Baso # (Auto) 0.05 Abs Immat Gran (auto) 0.01 Imm/Tot Granulo (auto) 0.1 Sodium 139 Potassium 3.7 Chloride 105 Carbon Dioxide 29 Anion Gap 5 L BUN 19 Creatinine 0.9 Estimated GFR 68 Glucose 106 Calcium 9.1 Phosphorus 3.6 C-Reactive Protein 5.5 H Albumin 3.7 TSH 0.668
[2025-04-09] MEDS: 0.9 % SODIUM CHLORIDE 500 ML 500 ML IV (15:14)
[2025-04-09] MEDS: ACETAMINOPHEN 325 MG TABLET 650 MG PO (18:03)
--- NOTE | 2025-04-09 18:57 | PC.NURSE ---
End of Shift: Patient pleasant and cooperative, oriented to self and close with other orientation with intermittent confusion. Patient vitally stable, lungs clear, BS WNL, IV running NS at 125. Patient rates left knee pain at most 6/10, tylenol given once. Patient is 1-2 assist, more so pivoting, wheelchair used to get to the toilet. Patient champagne, draining and intact, patient had 2 BMs today. Tele=NSR/sinus tach.
[2025-04-09] MEDS: ENOXAPARIN 40 MG/0.4 ML INJ SUBCUT (20:15)
[2025-04-09] MEDS: NORTRIPTYLINE HCL 25 MG CAPSULE 50 MG PO (21:00)
[2025-04-10] VITALS (10 sets, daily range): BP systolic 110–171; BP diastolic 64–95; PULSE 86–107; RESP 14–16; TEMP 36.4–37.2; O2SAT 93–99
--- NOTE | 2025-04-10 05:14 | PC.NURSE ---
[id number] Pt slept ok during night, disoriented to place and time, occasionally grasping at things that weren't there while sleeping, easily redirectable and reoriented. c/o L knee pain 3-11/30. champagne [address], patent and draining. denies chest pain and headache. tolerating IV fluids, BP's 120's systolically during shift.
[2025-04-10] MEDS: METFORMIN 500 MG TABLET 1000 MG PO ×2 (08:20→17:39)
[2025-04-10] MEDS: ATORVASTATIN CALCIUM 40 MG TABLET PO ×2 (08:20→08:21)
[2025-04-10] MEDS: GABAPENTIN 100 MG CAPSULE PO ×2 (08:21→20:41)
[2025-04-10] MEDS: METOPROLOL SUCCINATE (XL) 25 MG TAB PO (08:21)
[2025-04-10] MEDS: ACETAMINOPHEN 325 MG TABLET 650 MG PO ×2 (08:31→23:44)
--- NOTE | 2025-04-10 12:56 | P.IMPN_ITS ---
Assessment and Plan Assessment and plan (1) Acute delirium: Problem comment: -improving off nortriptyline -MRI normal for age -starting taper of the TCA and gabapentin (TCA 25mg on evening of 04/08) -monitor vitals and for signs of infection Status: Acute (2) On tricyclic antidepressant therapy: Problem comment: -the dose of this medication is high in her age group and her cognitive decline may lead to accidental OD. will taper her off this medication. TCA dose is now 50mg nightly. Likely a week here and then down to 25mg for a few days and off. Continue supportive care. QRS is currently 112ms, no abnormal morphology of the QRS waves noted, no abnormal R to S ration in aVR, no ventricular arrythmias seen. Continue to monitor on telemetry. Will give IVF boluses if hypotensive when supine or sitting. Ambulate with assistance. Status: Acute (3) Orthostatic hypotension: Problem comment: significant drop: 04/08/25 165 --> 82; pulse 104 -> 134 04/09/25 173 -> 123; pulse 96 -> 120 part volume depletion; part TCA OD? or other polypharmacy and/or administration use consider further workup as her lactate, BUN, ketones were all unremarkable in her initial workup. -echo last done in 2019 - nml other than volume depletion. - normal echo 04/10 Status: Acute (4) Cognitive decline: Problem comment: -MoCA ([place] Cognitive Assessment) -outpatient neuropysch testing as well. Status: Acute (5) Chronic migraine: Problem comment: gabapentin, nortriptyline, sumatriptan on her med list. -we will work to wean and transition for other options for her Status: Acute (6) Peripheral neuropathy: Problem comment: gabapentin and TCA use Status: Acute (7) At risk for polypharmacy: Problem comment: The 150mg of nortriptyline certainly have me concerned. Taper will be needed. Will also use smaller doses of her gabapentin. Status: Acute (8) HTN (hypertension): Problem comment: continue metoprolol Status: Acute (9) Type 2 diabetes mellitus, without long-term current use of insulin: Problem comment: well managed on metformin and ozempic (will question length and dose) a1c 6.3 Status: Acute Subjective Date Seen: 04/10/25 Interval history: Daily Progress Note - Hospital Medicine Day #: 3 CC: AMS, TCA OD (accidental) vs too high of dose. 24 HOUR UPDATE: seems better than yesterday. No obvious delirium; she does repeat herself during our chat. Notable Labs, Micro, Rads, Interventions: Vital signs reviewed. Stable. On room air. CBC drawn yesterday shows a hemoglobin of 10.4. Normal white blood cell count. MCV 103. Normal platelets. CRP up to 5.5 TSH and albumin are normal LFTs are normal MRI brain 1. No acute intracranial process. 2. Mild chronic ischemic microvascular disease. Echo Final Impressions: 1. Technically limited exam. 2. Normal left ventricular size, normal wall thickness, normal global systolic function, calculated EF of 66 %. 3. Suboptimal parasternal windows but suggestion of sigmoid septum with mild systolic anterior motion of the mitral valve. No evident septal contact or significant LVOT obstruction by Doppler interrogation. 4. Right ventricular cavity size is normal, global systolic RV function is normal. 5. No significant valvular heart disease evident. 6. Normal estimated RA pressure (3 mmHg). 7. No pericardial effusion. Objective: alert, mildly confused; repeats herself Vitals: see above Lungs: Clear. Cardiac: S1S2. Neuro: no gross deficits Disposition/Potential discharge - home with sister Today I spent 50minutes seeing the patient, reviewing Expanse and EPIC notes/diagnostics, discussing the care plan with our care time that includes social work, PT/OT, pharmacy, RT, long-term and documenting my impressions and plan in the medical record. Exam Const: Vital Signs, click to edit/add: Vital Signs - 24 hr 04/09/25 15:20 04/09/25 15:20 04/09/25 17:11 Temperature 98.3 F Pulse Rate 96 Pulse Rate [Pulse Oximeter] 93 93 Respiratory Rate 16 16 Blood Pressure [Le ft Arm] Blood Pressure [Ri ght Arm] 123/80 Pulse Oximetry 94 Oxygen Delivery Me thod Room Air 04/09/25 19:00 04/09/25 22:58 04/09/25 23:00 Temperature 98.1 F 99.0 F Pulse Rate 87 Pulse Rate [Pulse Oximeter] 95 90 Respiratory Rate 16 16 Blood Pressure [Le ft Arm] 113/70 124/68 Blood Pressure [Ri ght Arm] Pulse Oximetry 95 94 Oxygen Delivery Me thod Room Air Room Air 04/10/25 02:54 04/10/25 07:26 04/10/25 08:15 Temperature 99.0 F 98.7 F Pulse Rate 89 Pulse Rate [Pulse Oximeter] 93 89 Respiratory Rate 16 14 Blood Pressure [Le ft Arm] 129/80 139/68 Blood Pressure [Ri ght Arm] Pulse Oximetry 95 97 Oxygen Delivery Mt thod Room Air Room Air 04/10/25 08:15 04/10/25 11:17 Temperature 98.1 F Pulse Rate Pulse Rate [Pulse Oximeter] 89 86 Respiratory Rate 14 14 Blood Pressure [Le ft Arm] Blood Pressure [Ri ght Arm] 110/64 Pulse Oximetry 93 Oxygen Delivery Mt thod Room Air
--- NOTE | 2025-04-10 14:03 | PC.SOCIAL ---
Addendum entered by HARSHAD Bronson 04/10/25 16:40: Discharge planning: [facility] in [place] is also reviewing the pt's referral. They have not said anything about the balance owed to [facility]. Social work to follow-up as needed. Addendum entered by HARSHAD Bronson 04/10/25 16:37: Discharge planning: social worker masters heard from Barber Sharpe at [facility] that the pt has an outstanding balance due at [facility] in [place], which is also a [facility] of $2,394.00. Barber states that he will check to see if the amount has been written off or if the pt still needs to pay it before [facility] can consider her referral. Barber will follow-up with this worker in the morning. Social work to follow-up as needed. Original Note: Discharge planning: Pt is being recommended for short-term rehab after discharge from the hospital. social worker masters provided the pt with the [employer] Medicare Advantage Area [facility] list for review, as the pt has a Medicare Advantage plan with [facility]. Pt requested [facility] in [place] as her first choice and [facility] in [place] as her second choice. social worker masters reached out to both facilities and they both have potential openings for a short-term rehab bed for a female. social worker masters faxed the referral to [facility] in [place] at fax number #[phone]. social worker masters then also secure emailed the referral to Barber Sharpe with [facility] for [facility] in [place] to review. social worker masters updated the pt. Social work to follow-up as needed.
--- NOTE | 2025-04-10 19:58 | PC.NURSE ---
End of Shift: Patient pleasant and cooperative, alert and oriented today, but with confusion at time. Patient vitally stable, lungs clear, BS WNL, IV running NS at 125. Patient rates left knee pain at most 4/10, tylenol given twice today. Patient is 1 assist/walker/gb. Patient is tolerating diet, urinating well, and has had several BMs, on was partial incontinent. Blood sugars 91, 169, 94. Tele=NSR.
[2025-04-10] MEDS: NORTRIPTYLINE HCL 25 MG CAPSULE 50 MG PO (20:40)
[2025-04-10] MEDS: ENOXAPARIN 40 MG/0.4 ML INJ SUBCUT (20:41)
[2025-04-11 02:19] VITALS: BP 151/69; PULSE 99; RESP 18; TEMP 36.5; O2SAT 97
--- NOTE | 2025-04-11 06:22 | PC.NURSE ---
Pt is alert and oriented x3. Afebrile. Pt reports 4/10 left knee pain, managed with PRN medication. Pt is up SBA/A1 with walker and gait belt, voiding, and tolerating a regular diet. ?
[2025-04-11 06:26] LABS: Hematocrit 31.9 % (33.0-51.0); Hemoglobin* 10.1 gm/dL (12.0-16.0); Immature Granulocytes Abs Auto 0.01 K/uL (0.00-0.30); Immature Granulocytes Pct Auto 0.1 %; Lymphocytes Absolute Auto 2.93 K/uL (0.90-2.90); Mean Corpuscular HGB Conc 32 gm/dL (32-36); Mean Corpuscular Hemoglobin 33 pg (26-34); Mean Corpuscular Volume 103 fL (80-100); RDW Coefficient of Variation % 12.2 % (11.5-15.5); Red Blood Count 3.10 m/uL (4.00-5.20); White Blood Count* 8.06 K/uL (4.50-11.00)
[2025-04-11 06:29] LABS: Slide Review Reflex No
[2025-04-11 06:37] LABS: Chloride* 107 mmol/L (96-114)
[2025-04-11 06:38] LABS: Albumin* 3.7 g/dL (3.3-5.0); Potassium* 3.7 mmol/L (3.6-5.1); Sodium* 140 mmol/L (135-149)
[2025-04-11 06:41] LABS: Alanine Aminotransferase* 24 U/L (4-35); Alkaline Phosphatase* 47 U/L (40-150); Anion Gap 7 mEq/L (7-15); Aspartate Amino Transferase* 31 U/L (12-35); Bilirubin Total* 0.6 mg/dL (0.1-1.5); Blood Urea Nitrogen* 13 mg/dL (7-30); Calcium* 9.3 mg/dL (8.4-10.6); Carbon Dioxide* 26 mmol/L (20-32); Creatinine* 0.7 mg/dL (0.5-1.5); Estimated Glomerular Filt Rate 91 ml/min; Glucose* 107 mg/dL (60-115); Total Protein* 6.5 g/dL (6.0-8.3)
[2025-04-11 07:37] VITALS: PULSE 92
[2025-04-11 08:13] VITALS: BP 145/91; PULSE 91; RESP 18; TEMP 36.6; O2SAT 95
[2025-04-11] MEDS: METFORMIN 500 MG TABLET 1000 MG PO (08:27)
[2025-04-11] MEDS: SODIUM CHLORIDE 0.9 % (FLUSH) 10 ML SYRINGE 5 ML IVF (08:28)
[2025-04-11] MEDS: ACETAMINOPHEN 325 MG TABLET 650 MG PO (08:28)
[2025-04-11] MEDS: GABAPENTIN 100 MG CAPSULE PO (08:28)
[2025-04-11] MEDS: ATORVASTATIN CALCIUM 40 MG TABLET PO (09:55)
[2025-04-11 10:56] VITALS: BP 155/89; PULSE 95; RESP 18; TEMP 36.8; O2SAT 98
--- NOTE | 2025-04-11 11:05 | P.DS_ITS ---
DS: Providers Provider Date Seen: 04/11/25 Date of admission: 04/09/25 09:23 Primary care physician: Not a Local Provider Admitting Clinician: Rebekah Welch MD Consults: 04/08/25 14:41 Consult to Occupational Therapy [CONS] Routine Comment: Reason(s) for OT Consult:: Evaluate and Treat Any Restrictions?:: No Restrictions Consult to Physical Therapy [CONS] Routine Comment: Reason(s) for PT Consult:: Evaluate and Treat Any Restrictions?:: No Restrictions Consult to Sheet Cutter [CONS] Routine Comment: Reason for Consult:: Social Service Consult Attending Physician on discharge: Bia Bynum [facility], [facility] Date of Discharge: 04/11/25 DS: Diagnosis Discharge Diagnosis (1) Acute delirium: Status: Acute Problem details: Thought to be related to current medications, TCA and gabapentin. MRI appears to be normal for age. A taper of these medications has been started and should be followed up by PCP. Delirium improving prior to discharge. (2) On tricyclic antidepressant therapy: Status: Acute Problem details: The dose of this medication, nortriptyline, is high in her age group and her cognitive decline may lead to accidental OD. will taper her off this medication. On discharge, at 50 mg nightly. Continue to taper with PCP. Of note, QRS is currently 112ms, no abnormal morphology of the QRS waves noted, no abnormal R to S ration in aVR, no ventricular arrythmias seen. (3) Orthostatic hypotension: Status: Acute Problem details: Significant drop noted during course of hospital stay: 04/08/25 165 --> 82; pulse 104 -> 134 04/09/25 173 -> 123; pulse 96 -> 120 part volume depletion; part TCA OD? or other polypharmacy and/or administration use Pressures improved prior to discharge. Outpatient follow-up with PCP. Previous echo in 2019 - nml other than volume depletion. Repeat echo 04/10/25 normal (4) Cognitive decline: Status: Acute Problem details: -MoCA ([place] Cognitive Assessment) -recommend outpatient neuropysch testing as well. (5) Chronic migraine: Status: Acute Problem details: gabapentin, nortriptyline, sumatriptan on her med list. Continue to wean going discharge, outpatient follow-up with PCP for alternative management (6) Peripheral neuropathy: Status: Acute Problem details: gabapentin and TCA use - as above, weaning, outpatient follow-up with PCP for alternative management (7) At risk for polypharmacy: Status: Acute Problem details: The 150mg of nortriptyline certainly have me concerned. Taper will be needed. Will also use smaller doses of her gabapentin. (8) HTN (hypertension): Status: Acute Problem details: continue metoprolol (9) Type 2 diabetes mellitus, without long-term current use of insulin: Status: Acute Problem details: well managed on metformin and ozempic (will question length and dose) a1c 6.3 DS: Summary Hospital Course Hospital Course: COURSE OF CARE AND DETAILS NOTED ABOVE. Given history of gait issues and cognitive decline at baseline as well as recent falls and orthostasis, we have begun to taper nortriptyline and gabapentin. This will need to be continued in the outpatient setting with plan to wean from these medications. Will need close outpatient follow-up with PCP for this ongoing process as well as management of chronic pain/neuropathy. Assessed by PT/OT during course of hospital stay, recommending SNF. Discharge to [facility] REMAINDER OF CHRONIC MEDICAL COMORBIDITIES WERE MONITORED AND MANAGED WITH HOME MEDICATIONS. Status at Discharge Functional status at discharge: independent ambulation Overall status at discharge: patient is progressing back to baseline Time Spent with Patient Time attestation: Total time spent providing and/or coordinating discharge services: Time spent: Greater than 30 minutes Exam Narrative: Exam Narrative: PHYSICAL EXAM General: Pleasant, conversant, NAD Cardiovascular: RRR Pulmonary: No dyspnea Neurological: Alert, answering questions appropriately Skin: Warm, dry. Const: Vital Signs, click to edit/add: Vital Signs - 24 hr 04/10/25 11:17 04/10/25 14:47 04/10/25 15:00 Temperature 98.1 F 97.5 F L Pulse Rate Pulse Rate [Pulse Oximeter] 86 89 Pulse Rate [orthos tatic lying] 87 Pulse Rate [orthos tatic sitting] 89 Pulse Rate [orthos tatic standing] 102 H Respiratory Rate 14 16 Blood Pressure [Ri ght Arm] 110/64 133/79 Blood Pressure [or thostatic lying] 171/95 H Blood Pressure [or thostatic sitting] 133/79 Blood Pressure [or thostatic standing ] 152/89 H Pulse Oximetry 93 99 Oxygen Delivery Me thod Room Air Room Air 04/10/25 15:00 04/10/25 18:35 04/10/25 19:00 Temperature 98.1 F Pulse Rate 107 H Pulse Rate [Pulse Oximeter] 89 92 Pulse Rate [orthos tatic lying] Pulse Rate [orthos tatic sitting] Pulse Rate [orthos tatic standing] Respiratory Rate 16 16 Blood Pressure [Ri ght Arm] 151/89 H Blood Pressure [or thostatic lying] Blood Pressure [or thostatic sitting] Blood Pressure [or thostatic standing ] Pulse Oximetry 98 Oxygen Delivery Ks thod Room Air 04/10/25 23:50 04/11/25 02:19 04/11/25 07:37 Temperature 98.1 F 97.7 F Pulse Rate 92 Pulse Rate [Pulse Oximeter] 98 99 Pulse Rate [orthos tatic lying] Pulse Rate [orthos tatic sitting] Pulse Rate [orthos tatic standing] Respiratory Rate 16 18 Blood Pressure [Ri ght Arm] 166/88 H 151/69 H Blood Pressure [or thostatic lying] Blood Pressure [or thostatic sitting] Blood Pressure [or thostatic standing ] Pulse Oximetry 98 97 Oxygen Delivery Ks thod Room Air Room Air 04/11/25 08:13 04/11/25 10:56 Temperature 97.9 F 98.3 F Pulse Rate Pulse Rate [Pulse Oximeter] 91 95 Pulse Rate [orthos tatic lying] Pulse Rate [orthos tatic sitting] Pulse Rate [orthos tatic standing] Respiratory Rate 18 18 Blood Pressure [Ri ght Arm] 145/91 H 155/89 H Blood Pressure [or thostatic lying] Blood Pressure [or thostatic sitting] Blood Pressure [or thostatic standing ] Pulse Oximetry 95 98 Oxygen Delivery Ks thod Room Air Room Air DS: Data Data Completed and Pending Labs on day of discharge: Labs from last 24 hours 04/11/25 05:44 WBC 8.06 RBC 3.10 L Hgb 10.1 L Hct 31.9 L MCV 103 H MCH 33 MCHC 32 RDW Coeff of Kain 12.2 Plt Count 267 Neut % (Auto) 54.9 Lymph % (Auto) 36.4 Woods % (Auto) 5.2 Eos % (Auto) 3.0 Baso % (Auto) 0.4 Neut # (Auto) 4.43 Lymph # (Auto) 2.93 H Woods # (Auto) 0.40 Eos # (Auto) 0.24 Baso # (Auto) 0.03 Abs Immat Gran (auto) 0.01 Imm/Tot Granulo (auto) 0.1 Sodium 140 Potassium 3.7 Chloride 107 Carbon Dioxide 26 Anion Gap 7 BUN 13 Creatinine 0.7 Estimated GFR 91 Glucose 107 Calcium 9.3 Magnesium 1.6 Total Bilirubin 0.6 AST 31 ALT 24 Alkaline Phosphatase 47 C-Reactive Protein 5.5 H Total Protein 6.5 Albumin 3.7 Imaging Brain MRI: Attestation: I have reviewed the pertinent imaging results. Radiologist's impression: [place] [address] Diagnostic Imaging Report Patient: Lidia Akhtar MR#: [id number] : 1950 Acct:[id number] Loc: [id number] Service Date: 04/09/[address]: Rebekah Welch M.D. Ordering Physician: Rebekah Welch M.D. Date of Service: 04/09/25 Procedure(s): MR head/brain wo con Accession Number(s): [id number] cc: Rebekah Welch M.D.; Provider,Not a Local~ For Patients: As a result of the Century Cures Act, medical imaging exams and procedure reports are released immediately into your electronic medical record. You may view this report before your referring provider. If you have questions, please contact your health care provider. Indication: Altered mental status. Technique: Multiplanar, multisequence MRI of the brain was performed without intravenous contrast. Comparison: CT head 04/08/2025. Findings: The corpus callosum in clivus appear intact. Partly empty sella morphology. Mild degenerative change visualized upper cervical spine. There is no restricted diffusion. No intracranial hemorrhage. The ventricles are proportionate to the cerebral sulci. The 4th ventricle appears midline. The basal cisterns appear patent. No abnormal extra-axial fluid collection identified. There is no intracranial mass, abnormal mass-effect or midline shift identified. Mild parenchymal volume loss. Scattered T2 FLAIR hyperintense foci within the subcortical and periventricular white matter, favored to represent chronic ischemic microvascular disease. Major intracranial vascular flow voids appear grossly intact. Both globes are preserved. Mild paranasal sinus mucosal disease. Impression: 1. No acute intracranial process. CTA head: Attestation: I have reviewed the pertinent imaging results. Radiologist's impression: There is no cerebral aneurysm or large vessel occlusion. The right internal carotid artery is normal. The right middle cerebral artery and its branches are normal. The right anterior cerebral artery and its branches are normal. The left internal carotid artery is normal. The left middle cerebral artery and its branches are normal. The left anterior cerebral artery and its branches are normal. The anterior communicating artery is well visualized and appears normal. The right vertebral artery and PICA are normal. The left vertebral artery and PICA are normal. The left vertebral artery is dominant. The basilar artery is patent and appears normal. The right posterior cerebral artery is normal. The left posterior cerebral artery is normal. The visualized venous structures are patent. IMPRESSION: Patent proximal intracranial vasculature without intracranial aneurysms. CTA neck: Attestation: I have reviewed the pertinent imaging results. Radiologist's impression: The origins of the great vessels from the aortic arch are patent. The origin of the right vertebral artery is patent. The origin of the left vertebral artery is patent. The common carotid arteries are patent. There is no stenosis at the origin of the right internal carotid artery. There is no stenosis at the origin of the left internal carotid artery. The rest of the cervical segments of the internal carotid arteries are patent up to the skull base. The left vertebral artery is dominant. The cervical segments of the vertebral arteries are patent up to the skull base. The visualized lung apices are unremarkable. The thyroid gland is unremarkable. The soft tissues of the neck are unremarkable. There are degenerative changes in the cervical spine. IMPRESSION: Patent cervical vasculature. Discharge Plan Discharge Disposition: [facility] Date of Admission: 04/09/25 09:23 Attending Provider on Discharge: Bia Bynum Primary Care Provider: Provider,Not a Local Condition: Improved Anticipated Discharge Date/Time: 04/11/25 10:54 Discharge Medications: New nortriptyline 25 mg Capsule 50 mg PO HS Qty: 60 0RF gabapentin 100 mg Capsule 100 mg PO BID Qty: 60 0RF Continued metformin 500 mg tablet 1,000 mg PO BID metoprolol succinate 25 mg tablet extended release 24 hr 25 mg PO DAILY fluticasone propionate 50 mcg/actuation spray,suspension 2 spray INTRANASAL DAILY Rx Instructions: PLACE 1-2 SPRAYS INTO BOTH NOSTRILS DAILY. sumatriptan succinate 100 mg tablet 100 mg PO DIRECTED PRN atorvastatin 40 mg tablet 40 mg PO DAILY nystatin 100,000 unit/gram powder 1 applic topical BID-TID Discontinued nortriptyline 50 mg capsule 150 mg PO HS Rx Instructions: Take 3 Capsules (150 mg) by mouth every evening. gabapentin 100 mg capsule 200 - 300 mg PO BID Rx Instructions: 300 MG IN AM, 200 MG IN PM Discharge Orders: Discharge Order (Routine); Ordered 04/11/25 Ordered By: Bia Bynum Additional Instructions: MEDICATION CHANGES: GABAPENTIN 100MG TWICE DAILY NORTRIPTYLINE 50MG AT BEDTIME CONTINUE TO TAPER MEDICATIONS WITH PLAN TO WEAN FROM BOTH OF THESE. Activity Level: Activity as Tolerated Discharge Diet: Diabetic Follow Up Appointments: Provider,Not a Local [Primary Care Provider, Family Practice] Forms: Patient Belongings, [facility] Info Instructions Admit to: SNF Discharge Potential: Good Length of Stay: <30 days Can use facility standing orders?: Yes Code Status: Full Code Rehab Potential: Good Therapy: Physical Therapy and Occupational Therapy Therapy Orders: Evaluate and Treat Oxygen: No Urinary Catheter: No Orders are good >30 days: No Signature: FAM WARNER, PA-C [facility]
--- NOTE | 2025-04-11 11:35 | PC.NURSE ---
Pt discharged @ 1133 via wheelchair, accompanied by sister. Going to [facility] for rehab. Nurse to nurse report given. Pt in good condition. IV removed. [place] folder given to patient. Discharge instructions given and understood. Forms signed. Final room check complete.
--- NOTE | 2025-04-11 11:43 | PC.SOCIAL ---
Discharge planning: Pt was accepted to [facility] for short-term rehab with an admission date of today. Pt accepted the bed and her sister will transport her to [facility] this afternoon. Pre-admission screening was completed and the confirmation number and packet were secure emailed to Barber Sharpe at [facility]. [id number]. Discharge orders were also secure emailed to Barber Sharpe at [facility]. Social work to follow-up as needed.
== END 2025-04-11 11:33 | DRG 917 ==
LOC: ED 09:02 → MEDSURG 11:46
PROVIDERS: Admitting Provider Family Medicine; Emergency Provider Family Medicine; Visit Provider Family Medicine
DX: T43.011A Poisoning by tricyclic antidepressants, accidental (unintentional), initial encounter (principal); G92.8 Other toxic encephalopathy; I95.1 Orthostatic hypotension; E11.42 Type 2 diabetes mellitus with diabetic polyneuropathy; R41.81 Age-related cognitive decline; R26.89 Other abnormalities of gait and mobility; G43.809 Other migraine, not intractable, without status migrainosus; I10 Essential (primary) hypertension; Z79.84 Long term (current) use of oral hypoglycemic drugs; Z79.85 Long-term (current) use of injectable non-insulin antidiabetic drugs; W19.XXXA Unspecified fall, initial encounter; Y92.000 Kitchen of unspecified non-institutional (private) residence as the place of occurrence of the external cause; Z91.81 History of falling; E66.9 Obesity, unspecified; G47.30 Sleep apnea, unspecified; Z98.84 Bariatric surgery status; E78.5 Hyperlipidemia, unspecified
CPT/HCPCS: 36415; 70450; 70496; 70498; 70551; 71045; 73560; 80053; 80069; 80306; 81001; 82077; 82962; 83605; 83735; 84443; 84484; 85025; 85610; 86140; 93005; 93306; 97110; 97116; 97162; 97165; 97530; 97535; 99284; 99285; A9270; G0378; J1650; J7030; Q9967